=== PATIENT | female | born 1960 | race Caucasian/White ===

== ENCOUNTER 2019-09-07 01:27 | Emergency (ER) | payer OTHER ==
--- NOTE | 2019-09-07 01:49 | PDOC ---
History of Present Illness - General Stated Complaint: PAIN Time Seen by Provider: 09/07/19 01:48 History Source: Patient Exam Limitations: No Limitations - History of Present Illness Initial Comments: 59 year old female with PMH HTN, Factor 5 Leiden on Xarelto, chronic lower extremity swelling presented to ED for dental fracture and pain since last night. Pt reported she was at the Dentist yesterday for planned extraction of left upper tooth and planned root canal of left upper tooth. She reported that last night while brushing her teeth her left middle upper tooth broke and started to hurt her, prompting her to come to the ED. She reported she was treated for a left ear infection x2 weeks ago, was initially on Augmentin which gave her diarrhea/nausea/vomiting, then switched to Bactrim. She reported she did not take the bactrim today as it also have her diarrhea. ROS General: denied fever, chills, generalized weakness. HEENT: denied sore throat, rhinorrhea, ear pain. Cardiovascular: denied chest pain, palpitations, syncope, diaphoresis. Respiratory: denied shortness of breath, cough, sputum production, hemoptysis. Gastrointestinal: denied abdominal pain, nausea, vomiting, diarrhea, constipation, blood in stool. Genitourinary: denied dysuria, increased urinary frequency, hematuria, urinary incontinence, flank pain. Back: denied back pain. Musculoskeletal: denied joint pain, muscle pain, joint swelling. Neurological: denied headache, dizziness, numbness, tingling, weakness. Integumentary: denied rash, laceration, abrasion. Hematologic/Lymphatic: denied bruising or bleeding. PE Constitutional: Well-nourished, Well-developed, appearing stated age. HEENT: head is normocephalic, atraumatic. EOMI. PERRLA. no posterior pharyngeal erythema.no tonsillar swelling or exudates bilaterally. uvula midline. no peritonsillar swelling, tenderness or abscess. no jaw tenderness or misalignment. bilateral TM with light reflex, no erythema, no bulging. bilateral external auditory canals without erythema, without swelling. Neck: supple. Full ROM. Cardiovascular: regular heart rhythm. no murmurs. no pericardial friction rub. Respiratory: clear to auscultation bilaterally. no crackles, rhonchi or wheezing. no stridor. Gastrointestinal: soft, nontender. normal bowel sounds. no rebound, guarding, masses. Extremities: peripheral pulses intact. no lower extremity edema. Neurological: CN 2-12 grossly intact. moves all four extremities. Psych: awake, alert, oriented x3. follows commands. answers questions appropriately. Mouth: diffuse dental caries. poor dentition. number 9 fractured without pulp involvement. Past History - Past Medical History Allergies/Adverse Reactions: Allergies Allergy/AdvReac Type Severity Reaction Status Date / Time azithromycin Allergy Severe Hives Verified 09/07/19 01:30 [From Zithromax Z-Maxim] amitriptyline AdvReac Severe diarrhea Verified 09/07/19 01:30 aspirin AdvReac Severe gi problems Verified 09/07/19 01:30 celecoxib [From Celebrex] AdvReac Severe gi problems Verified 09/07/19 01:30 string beans AdvReac Severe diarrhea Uncoded 09/07/19 01:30 Home Medications: Ambulatory Orders Calcium Carb/Vitamin D3/Vit K1 [Calcium + D Soft Chewable Tab] 1 each PO DAILY 07/29/14 Cetirizine HCl [Zyrtec -] 10 mg PO DAILY 07/29/14 Cholecalciferol (Vitamin D3) [Vitamin D3] 600 unit PO BID 07/29/14 Citalopram Hydrobromide [Celexa -] 40 mg PO HS 07/29/14 Esomeprazole Mag Trihydrate [Nexium] 40 mg PO BID 07/29/14 Fluticasone/Salmeterol [Advair Hfa 230-21 Mcg Inhaler] 2 inh PO BID 07/29/14 Folic Acid - 1 mg PO DAILY 07/29/14 Gabapentin [Neurontin] 1,600 mg PO HS 07/29/14 Gabapentin [Neurontin] 300 mg PO TID PRN 07/29/14 Montelukast Na [Singulair -] 10 mg PO HS 07/29/14 Multivitamins [Multivit ([facility] Formulary)] 1 tab PO DAILY 07/29/14 Simvastatin [Zocor -] 40 mg PO HS 07/29/14 Ubidecarenone/Vit E Acet [Co Q-10 100 mg Softgel] 1 each PO DAILY 07/29/14 Zolpidem Tartrate 10 mg PO HS PRN 07/29/14 Meclizine HCl [Antivert -] 25 mg PO TID PRN 10/14/16 Rivaroxaban [Xarelto -] 20 mg PO DAILY 07/01/16 Oxycodone HCl/Acetaminophen [Percocet 5/325 -] 1 tab PO Q6H #12 tablet MDD 4 - Psycho Social/Smoking Cessation Hx Smoking History: Never smoked Have you smoked in the past 12 months: No Hx Alcohol Use: No Drug/Substance Use Hx: No Substance Use Type: None Hx Substance Use Treatment: No Medical Decision Making - Medical Decision Making 59 year old female with above PMH presented to ED for dental fracture since last night. Initial Vital Signs Temp Pulse Resp BP Pulse Ox 97.8 F 68 18 141/62 99 09/07/19 02:00 09/07/19 02:00 09/07/19 02:00 09/07/19 02:00 09/07/19 02:00 Afebrile. No tachycardia. No tachypnea. Mild hypertension. No hypoxia on room air. Labs ordered: none Imaging ordered: none Medications ordered: Percocet 2 pills once Allergies Allergy/AdvReac Type Severity Reaction Status Date / Time azithromycin Allergy Severe Hives Verified 09/07/19 01:30 [From Zithromax Z-Maxim] amitriptyline AdvReac Severe diarrhea Verified 09/07/19 01:30 aspirin AdvReac Severe gi problems Verified 09/07/19 01:30 celecoxib [From Celebrex] AdvReac Severe gi problems Verified 09/07/19 01:30 string beans AdvReac Severe diarrhea Uncoded 09/07/19 01:30 09/07/19 04:52 Vital Signs Temperature 97.8 F 09/07/19 02:00 Pulse Rate 66 09/07/19 04:29 Respiratory Rate 16 09/07/19 04:29 Blood Pressure 121/58 L 09/07/19 04:29 O2 Sat by Pulse Oximetry (%) 99 09/07/19 04:29 No pulp involvement. Pt stable for discharge and F/U with Dentist Monday. Discharge - Discharge Information Problems reviewed: Yes Clinical Impression/Diagnosis: Tooth fracture Condition: Stable Disposition: HOME - Admission No - Additional Discharge Information Prescriptions: Oxycodone HCl/Acetaminophen [Percocet 5/325 -] 1 tab PO Q6H #12 tablet MDD 4 - Follow up/Referral Referrals: Julia Cerda [Primary Care Provider] - - Patient Discharge Instructions Patient Printed Discharge Instructions: DI for Dental Pain Additional Instructions: Follow up with your Dentist on Monday. Your care is not complete until you follow up. Return to the Emergency Department for increasing pain, fever, vomiting, increasing swelling, difficulty breathing, chest pain, shortness of breath, or any other new, worsening or concerning symptoms. Take Tylenol over the counter for your pain. Take as advised on label. - Post Discharge Activity
--- NOTE | 2019-09-07 02:05 | PDOC ---
Attending Attestation - Resident Resident Name: Angela Song - ED Attending Attestation I have performed the following: I have examined & evaluated the patient, The case was reviewed & discussed with the resident, I agree w/resident's findings & plan - HPI HPI: 09/07/19 02:46 PT CHIPPED HER LEFT OF CENTER MEAXILLARY TOOTH TODAY. THIS OCCURRED AFTER COMING FROM THE DENTIST, WHERE THEY ARE DOING A ROOT CANAL ON ONE OF HER MOLARS. SHE IS ON ABX (BACTRIM) AND GIVEN TYLENOL FOR THE PAIN. SHE STATES THAT SHE NEEDS PAIN RELIEF. WE WILL TREAT WITH PERCOCET IN THE ER AND TOMORROW SHE WILL BE ASKED TO FOLLOW WITH HER DENTIST. - Physicial Exam PE: 09/07/19 03:30 Afebrile in mild distress pt appears well no gingival swelling 09/07/19 03:42 Chip in tooth #8 upper left of center tooth. hole drilled by dentist in tooth #3 Tooth #2 also with caries - Medical Decision Making 09/07/19 22:36 Pt given pain meds and she is discharged to follow with her dentist.
[2019-09-07 02:34] VITALS: BMI 42.5
[2019-09-07 10:41] VITALS: BP 144/80; PULSE 65; TEMP 98.2
== END 2019-09-07 10:41 | disposition home or self-care (01) ==
LOC: JER 01:27
DX: S02.5XXA Fracture of tooth (traumatic), initial encounter for closed fracture (principal); K02.9 Dental caries, unspecified; X58.XXXA Exposure to other specified factors, initial encounter; Y93.89 Activity, other specified; Y92.038 Other place in apartment as the place of occurrence of the external cause; Y99.8 Other external cause status; Z88.1 Allergy status to other antibiotic agents; Z88.6 Allergy status to analgesic agent; Z88.8 Allergy status to other drugs, medicaments and biological substances; Z91.018 Allergy to other foods
CPT/HCPCS: 99282-25

== ENCOUNTER 2020-04-27 20:02 | Observation (INO) | payer OTHER ==
--- NOTE | 2020-04-27 20:35 | PDOC ---
Attending Attestation - Resident Resident Name: Yasmany Griffith - ED Attending Attestation I have performed the following: I have examined & evaluated the patient, The case was reviewed & discussed with the resident, I agree w/resident's findings & plan - HPI HPI: 04/27/20 22:57 see resident hpi - Physicial Exam PE: 04/27/20 22:57 see resident exam - Medical Decision Making 04/27/20 22:57 60-year-old female with chest pressure EKG shows a right bundle branch block with no old for comparison Chest x-ray shows no acute pulmonary disease Pressures are equal in bilateral upper extremities There is no radiation of pain to the back or neck to suggest dissection Patient is currently anticoagulated due to clotting disorder, PE unlikely We will admit to medical service for further evaluation 04/27/20 22:59 Discharge - Discharge Information Problems reviewed: Yes Clinical Impression/Diagnosis: Chest pain Condition: Fair - Follow up/Referral - Patient Discharge Instructions - Post Discharge Activity
[2020-04-27 20:36] VITALS: BMI 43.5
--- NOTE | 2020-04-27 20:48 | PDOC ---
History of Present Illness - General Chief Complaint: Chest Pain Stated Complaint: CHEST PAIN - History of Present Illness Initial Comments: 04/27/20 20:40 60 F with hx of leiden V on xalreto, DVT, PE (2016), chronic extremiites swelling, HTN, HLD, GERD, hiatal hernia BIBA from home for chest pain. Chest pain started this morning , about 8 hours ago. Pain started in the midsternum, radiate around the front of the chest, 8/10, worse with movement, get better with rest. No vomiting, no diaphoresis, no changes of vision. Does endorse headache, nausea. Denies Fever, chill, recent sick contact. Compliant with all the home med. Patient got new HTN med add to her list this morning after seeing her primary care doctor. PMH: stated above PSH: none Med: home meds. SS: denies smoke, alcohol, drug ALlergy: zpack, amitripline, aspirin, celecocib. PCP: jesus SE[facility] GENERAL/CONSTITUTIONAL: No fever or chills. No weakness. HEAD, EYES, EARS, NOSE AND THROAT: No change in vision. No ear pain or discharge. No sore throat. CARDIOVASCULAR: +chest pain ,no shortness of breath RESPIRATORY: No cough, wheezing, or hemoptysis. GASTROINTESTINAL: + nausea, no vomiting, diarrhea or constipation. GENITOURINARY: No dysuria, + increased frequency, or change in urination. MUSCULOSKELETAL: No joint pain, + legs muscle swelling . No neck ,+ back pain (chronic) SKIN: No rash NEUROLOGIC: + headache, no vertigo, loss of consciousness, or change in strength/sensation. ENDOCRINE: No increased thirst. No abnormal weight change HEMATOLOGIC/LYMPHATIC: No anemia, easy bleeding, or history of blood clots. ALLERGIC/IMMUNOLOGIC: No hives or skin allergy. PE: BP: 190s/70s GENERAL: Awake, alert, and fully oriented, in no acute distress. +Obese. HEAD: No signs of trauma, normocephalic, atraumatic EYES: PERRLA, EOMI, sclera anicteric, conjunctiva clear ENT: Auricles normal inspection, hearing grossly normal, nares patent, oropharynx clear without exudates. Moist mucosa NECK: Normal ROM, supple, no lymphadenopathy, JVD, or masses LUNGS: No distress, speaks full sentences, clear to auscultation bilaterally HEART: Regular rate and rhythm, normal S1 and S2, no murmurs, rubs or gallops, peripheral pulses normal and equal bilaterally. ABDOMEN: Soft, nontender, normoactive bowel sounds. No guarding, no rebound. No masses EXTREMITIES : Normal range of motion. No clubbing or cyanosis. No pitting edema. Chronic swelling, no redness. NEUROLOGICAL: Cranial nerves II through XII grossly intact. Normal speech, normal gait, no focal sensorimotor deficits SKIN: Warm, Dry, normal turgor, no rashes or lesions noted Past History - Medical History Allergies/Adverse Reactions: Allergies Allergy/AdvReac Type Severity Reaction Status Date / Time azithromycin Allergy Severe Hives Verified 04/27/20 20:24 [From Zithromax Z-Maxim] amitriptyline AdvReac Severe diarrhea Verified 04/27/20 20:24 aspirin AdvReac Severe gi problems Verified 04/27/20 20:24 celecoxib [From Celebrex] AdvReac Severe gi problems Verified 04/27/20 20:24 string beans AdvReac Severe diarrhea Uncoded 04/27/20 20:24 Home Medications: Ambulatory Orders Calcium Carb/Vitamin D3/Vit K1 [Calcium + D Soft Chewable Tab] 1 each PO DAILY 07/29/14 Cetirizine HCl [Zyrtec -] 10 mg PO DAILY 07/29/14 Cholecalciferol (Vitamin D3) [Vitamin D3] 600 unit PO BID 07/29/14 Citalopram Hydrobromide [Celexa -] 40 mg PO HS 07/29/14 Esomeprazole Mag Trihydrate [Nexium] 40 mg PO BID 07/29/14 Fluticasone/Salmeterol [Advair Hfa 230-21 Mcg Inhaler] 2 inh PO BID 07/29/14 Folic Acid - 1 mg PO DAILY 07/29/14 Gabapentin [Neurontin] 1,600 mg PO HS 07/29/14 Gabapentin [Neurontin] 300 mg PO TID PRN 07/29/14 Montelukast Na [Singulair -] 10 mg PO HS 07/29/14 Multivitamins [Multivit ([facility] Formul[facility])] 1 tab PO DAILY 07/29/14 Simvastatin [Zocor -] 40 mg PO HS 07/29/14 Ubidecarenone/Vit E Acet [Co Q-10 100 mg Softgel] 1 each PO DAILY 07/29/14 Zolpidem Tartrate 10 mg PO HS PRN 07/29/14 Meclizine HCl [Antivert -] 25 mg PO TID PRN 07/01/16 Rivaroxaban [Xarelto -] 20 mg PO DAILY 07/01/16 Oxycodone HCl/Acetaminophen [Percocet 5/325 -] 1 tab PO Q6H #12 tablet MDD 4 09/07/19 Anemia: No Asthma: Yes (LAST USED ALBUTEROL 1 1/2 MOS AGO,HAD BRONCHITIS,FINISHED LEVAQUIN 07/25/14) Cancer: No Cardiac Disorders: No (MILD MURMUR) CVA: No COPD: Yes CHF: No Dementia: No Diabetes: No GI Disorders: Yes (GERD,COLON POLYPS) Disorders: No HTN: Yes Hypercholesterolemia: Yes Liver Disease: No Seizures: Yes (LAST SEIZURE OVER 35 YEARS AGO) Thyroid Disease: No - Surgical History Abdominal Surgery: No Appendectomy: No Cardiac Surgery: No Cholecystectomy: Yes Lung Surgery: No Neurologic Surgery: No Orthopedic Surgery: Yes (CARPAL TUNNEL BILATERAL,LEFT SHOULDER ARTHROSCOPY) - Reproductive History Is Patient Now?: No - Psycho-Social/Smoking History Smoking History: Never smoked Have you smoked in the past 12 months: No Information on smoking cessation initiated: No - Substance Abuse Hx (Audit-C & DAST Scrn) How often the patient has a drink containing alcohol: Never Score: In Men: 4 or > Positive; In Women: 3 or > Positive: 0 Screen Result (Pos requires Nsg. Audit-10AR): Negative In the last yr the pt used illegal drug/Rx for NonMed reason: No Score: Yes response is considered Positive: 0 Screen Result (Positive result requires Nsg. DAST-10): Negative *Physical Exam - Vital Signs Last Vital Signs Temp Pulse Resp BP Pulse Ox 98.8 F 72 18 194/78 H 97 04/27/20 20:10 04/27/20 20:10 04/27/20 20:10 04/27/20 20:10 04/27/20 20:10 ED Treatment Course - LABORATORY CBC & Chemistry Diagram: 04/27/20 21:27 04/27/20 21:27 Medical Decision Making - Medical Decision Making 04/27/20 21:06 EKG: vent rate 67, normal sinus rhythm, RBBB. No previous EKG to compare to. 04/27/20 21:07 60 F with HTN, Factor V leiden, HLD, previous DVT, PE (2016) came here for chest pain, concerning for ACS, PE, dissection. -lab: CBC, CMP, UA to look for End organ damage, cardiac profile, -repeat BP both arms -chest Xray normal, no obvious infiltrate. No previous Xray to compare to. 04/27/20 21:29 Repeated BP both arms: 160/80s. 04/27/20 23:36 Heart score: 3, for age and risk factors. Lab came back with elevated BNP, trop is negative. 04/27/20 23:37 Admit for tele observation, under Dr. keen 04/27/20 23:42 Give tylenol for chest pain, reassessed pain. Patient admitted feeling better. Pain is coming down now. Discharge - Discharge Information Problems reviewed: Yes Clinical Impression/Diagnosis: Chest pain Qualifiers: Chest pain type: unspecified Qualified Code(s): R07.9 - Chest pain, unspecified Condition: Fair - Admission Yes - Follow up/Referral - Patient Discharge Instructions - Post Discharge Activity
[2020-04-27 21:49] LABS: EOS % 2.3 % (0-4.5); HEMATOCRIT 42.4 % (32.4-45.2); LYMPH % 22.5 % (8-40); MCH 26.9 pg (25.7-33.7); MEAN CELL VOLUME 81.4 fl (80-96); MEAN PLT VOLUME 10.8 fl (7.5-11.1); MONO % 10.2 % (3.8-10.2); PLATELET COUNT 139 K/MM3 (134-434); RBC 5.21 M/mm3 (3.60-5.2); RDW 13.8 % (11.6-15.6)
[2020-04-27 22:23] LABS: ALBUMIN 3.7 g/dl (3.4-5.0); ALK PHOS 65 U/L (45-117); ANION GAP 9 MMOL/L (8-16); BILIRUBIN,TOTAL 1.3 mg/dL (0.2-1); BLOOD UREA NITROGEN 12.5 mg/dL (7-18); CALCIUM 9.2 mg/dL (8.5-10.1); CHLORIDE 104 mmol/L (98-107); CO2 28 mmol/L (21-32); CREATININE 1.1 mg/dL (0.55-1.3); GLUCOSE,RANDOM 113 mg/dL (74-106); N-TERMINAL BNP 429.9 pg/ml (5-125); POTASSIUM 3.7 mmol/L (3.5-5.1); SGOT/AST 27 U/L (15-37); SGPT/ALT 37 U/L (13-61); SODIUM 142 mmol/L (136-145)
[2020-04-27 23:27] LABS: INR 0.97 (0.83-1.09); PROTHROMBIN TIME (PATIENT) 11.4 SEC (9.7-13.0)
[2020-04-27] MEDS ORDERED: ACETAMINOPHEN 1000 MG/100 ML VIAL (NON FORMULARY) IVPB ONE (23:29)
[2020-04-27 23:30] LABS: ACTIVATED PTT 29.5 SECONDS (25.2-36.5)
[2020-04-28] MEDS ORDERED: PANTOPRAZOLE 40 MG TABLET PO ONE (00:22)
[2020-04-28] MEDS ORDERED: GABAPENTIN 300 MG CAPSULE PO PRN (00:30)
[2020-04-28] MEDS ORDERED: FUROSEMIDE 40 MG TABLET (FP) PO ONE (00:34)
[2020-04-28] MEDS ORDERED: MECLIZINE HCL 25 MG TABLET (FP) PO PRN (00:50)
--- NOTE | 2020-04-28 01:42 | PN ---
Teaching Attending Note Name of Resident: Jennie Gaming ATTENDING PHYSICIAN STATEMENT I saw and evaluated the patient. I reviewed the resident's note and discussed the case with the resident. I agree with the resident's findings and plan as documented. SUBJECTIVE: 60 F with hx of leiden V on xalreto, DVT, PE (2015), chronic extremiites swel ling, HTN, HLD, GERD, hiatal hernia presented with chest pain. According to patient her chest started yesterday morning, on and off left sided. 8/10. worse withy movement. NO shortness of breath, palpitations, diaphoresis patient denies any chest pain at this time OBJECTIVE: Last Vital Signs Temp Pulse Resp BP Pulse Ox 99.0 F 68 19 155/67 98 04/28/20 00:46 04/28/20 00:46 04/28/20 00:46 04/28/20 00:46 04/28/20 00:46 GENERAL: obese, not ketan cute distress HEAD: No signs of trauma, normocephalic, atraumatic EYES: PERRLA, EOMI, sclera anicteric, conjunctiva clear ENT: Auricles normal inspection, hearing grossly normal, nares patent, oropharynx clear without exudates. Moist mucosa NECK: Normal ROM, supple, no lymphadenopathy, JVD, or masses LUNGS: No distress, speaks full sentences, clear to auscultation bilaterally HEART: Regular rate and rhythm, normal S1 and S2, no murmurs, rubs or gallops, peripheral pulses normal and equal bilaterally. ABDOMEN: Soft, nontender, normoactive bowel sounds. No guarding, no rebound. No masses EXTREMITIES : Normal range of motion. No clubbing or cyanosis. No pitting edema. Chronic swelling, no redness. b/l calf tenderness NEUROLOGICAL: Cranial nerves II through XII grossly intact. Normal speech, normal gait, no focal sensorimotor deficits SKIN: Warm, Dry, normal turgor, no rashes or lesions note ASSESSMENT AND PLAN: chest pain r/o ACS heart score 3 factor leiden V on xalreto, DVT, PE (2016), chronic extremiites swelling, HTN, HLD, GERD, hiatal hernia cervical and lumbar radicopathy with neuropathy Admit to tele serial cardiac enzymes, EKG b/l DVT studies ECHO HTN- uncontrolled - resume losartan resume all home meds including xarelto Hba1c, lipid panel check UA as she gives history ofm polyuria resume home meds for above mentioned co morbidities
[2020-04-28] MEDS ORDERED: PANTOPRAZOLE 20 MG TABLET PO ONE ×2 (01:48→02:38)
[2020-04-28] MEDS ORDERED: ACETAMINOPHEN INJECTION 100 ML IVPB ONE (01:48)
[2020-04-28 02:32] LABS: PH,URINE 6.5 (5.0-8.0); URINE APPEARANCE CLEAR; URINE BILIRUBIN NEGATIVE (NEGATIVE); URINE COLOR YELLOW; URINE GLUCOSE (UA) NEGATIVE (NEGATIVE); URINE KETONE NEGATIVE (NEGATIVE); URINE LEUK ESTERASE NEGATIVE (NEGATIVE); URINE NITRITE NEGATIVE (NEGATIVE); URINE PROTEIN NEGATIVE (NEGATIVE)
--- NOTE | 2020-04-28 06:18 | HP ---
CHIEF COMPLAINT: chest pain PCP: Dr. Grant HISTORY OF PRESENT ILLNESS: Pt is a 60 yo F with PMH of factor V leiden on xalreto, DVT, PE (2016), chronic lower extremity swelling, HTN, HLD, GERD, asthma, and hiatal hernia presenting with non-radiating generalized chest pain (pain scale 9/1) since this morning. She reports that the pain is burning, pressure-like, and feels like chest- tightness as well. Pt reports that the pain is aggravated by movement and improves with rest. Pt reports that her BPs are usually 120s/60s at home but that she noticed them elavated today after onset of chest pain. Associated nausea and headache. Also reports increased urinary frequency, but not dysuria or hematuria. Denies vomiting, diaphoresis, fevers, chills, changes in vision, constipation, and diarrhea. Pt reports pain feels similar to GERD related pain she has had in past but much worse - "never this bad before." ER course was notable for: (1) vent rate 67, normal sinus rhythm, RBBB. No previous EKG to compare to. (2) Trops neg (3) Tylenol given Recent Travel: none Sick contacts: none PAST MEDICAL HISTORY: as per HPI PAST SURGICAL HISTORY: as per HPI Social History: Lives in apartment alone. Smoking: Denies Alcohol: Denies Drugs: Denies Allergies azithromycin [From Zithromax Z-Maxim] Allergy (Severe, Verified 04/27/20 20:24) Hives amitriptyline Adverse Reaction (Severe, Verified 04/27/20 20:24) diarrhea aspirin Adverse Reaction (Severe, Verified 04/27/20 20:24) gi problems celecoxib [From Celebrex] Adverse Reaction (Severe, Verified 04/27/20 20:24) gi problems string beans Adverse Reaction (Severe, Uncoded 04/27/20 20:24) diarrhea HOME MEDICATIONS: Home Medications Medication Instructions Recorded Calcium Carb/Vitamin D3/Vit K1 1 each PO DAILY 07/29/14 [Calcium + D Soft Chewable Tab] Cetirizine HCl [Zyrtec -] 10 mg PO DAILY 07/29/14 Cholecalciferol (Vitamin D3) 600 unit PO BID 07/29/14 [Vitamin D3] Citalopram Hydrobromide [Celexa -] 40 mg PO HS 07/29/14 Esomeprazole Mag Trihydrate 40 mg PO BID 07/29/14 [Nexium] Fluticasone/Salmeterol [Advair Hfa 2 inh PO BID 07/29/14 230-21 Mcg Inhaler] Folic Acid - 1 mg PO DAILY 07/29/14 Gabapentin [Neurontin] 1,200 mg PO HS 07/29/14 Gabapentin [Neurontin] 300 mg PO TID PRN 07/29/14 Montelukast Na [Singulair -] 10 mg PO HS 07/29/14 Multivitamins [Multivit ([facility] 1 tab PO DAILY 07/29/14 Formulary)] Simvastatin [Zocor -] 40 mg PO HS 07/29/14 Meclizine HCl [Antivert -] 12.5 mg PO TID PRN 07/01/16 Rivaroxaban [Xarelto -] 20 mg PO DAILY 07/01/16 Ezetimibe [Zetia -] 10 mg PO DAILY 04/28/20 Furosemide [Lasix -] 20 mg PO DAILY 04/28/20 Losartan Potassium 100 mg PO DAILY 04/28/20 REVIEW OF SYSTEMS as per HPI. PHYSICAL EXAMINATION Vital Signs - 24 hr 04/27/20 04/27/20 04/28/20 20:10 21:51 00:46 Temperature 98.8 F 99.0 F Pulse Rate 72 Pulse Rate [ 68 Right Radial] Respiratory 18 19 Rate Blood Pressure 194/78 H Blood Pressure 165/83 155/67 [Right Arm] O2 Sat by Pulse 97 98 Oximetry (%) GENERAL: Awake, alert, and fully oriented, in no acute distress. Pt morbidly obese. HEAD: Normal with no signs of trauma. EYES: Pupils equal, round and reactive to light, extraocular movements intact, sclera white, conjunctiva clear. EARS, NOSE, THROAT: oropharynx clear without exudates. Moist mucous membranes. NECK: Normal range of motion, supple without LAD LUNGS: Breath sounds equal, clear to auscultation bilaterally. No wheezes, and no crackles. No accessory muscle use. HEART: Regular rate and rhythm, normal S1 and S2 without murmur, rub or gallop. ABDOMEN: Soft, nontender, not distended, normoactive bowel sounds. MUSCULOSKELETAL: moving all extremities equally and spontaneously UPPER EXTREMITIES: 2+ pulses, warm, well-perfused. LOWER EXTREMITIES: 2+ pulses, warm, well-perfused. Mild calf tenderness. Non- pitting peripheral edema - chronic. NEUROLOGICAL: Cranial nerves II-XII intact. Normal speech. Normal gait. PSYCHIATRIC: Cooperative. Good eye contact. Appropriate mood and affect. SKIN: Warm, dry, normal turgor, no rashes or lesions noted. Laboratory Results - last 24 hr 04/27/20 04/27/20 04/27/20 21:27 21:27 23:15 WBC 6.0 RBC 5.21 H Hgb 14.0 Hct 42.4 MCV 81.4 MCH 26.9 MCHC 33.0 RDW 13.8 Plt Count 139 MPV 10.8 Absolute Neuts (auto) 3.9 Neutrophils % 64.0 Lymphocytes % 22.5 Monocytes % 10.2 Eosinophils % 2.3 Basophils % 1.0 Nucleated RBC % 0 PT with INR 11.40 INR 0.97 PTT (Actin FS) 29.5 Sodium 142 Potassium 3.7 Chloride 104 Carbon Dioxide 28 Anion Gap 9 BUN 12.5 Creatinine 1.1 Est GFR (CKD-EPI)AfAm 63.20 Est GFR (CKD-EPI)NonAf 54.53 Random Glucose 113 H Calcium 9.2 Total Bilirubin 1.3 H AST 27 ALT 37 Alkaline Phosphatase 65 Creatine Kinase 108 Troponin I < 0.02 B-Natriuretic Peptide 429.9 H Total Protein 7.0 Albumin 3.7 Lipase Urine Color Urine Appearance Urine pH Ur Specific Amery Urine Protein Urine Glucose (UA) Urine Ketones Urine Blood Urine Nitrite Urine Bilirubin Urine Urobilinogen Ur Leukocyte Esterase 04/28/20 04/28/20 04/28/20 02:15 03:33 03:33 WBC RBC Hgb Hct MCV MCH MCHC RDW Plt Count MPV Absolute Neuts (auto) Neutrophils % Lymphocytes % Monocytes % Eosinophils % Basophils % Nucleated RBC % PT with INR INR PTT (Actin FS) Sodium Potassium Chloride Carbon Dioxide Anion Gap BUN Creatinine Est GFR (CKD-EPI)AfAm Est GFR (CKD-EPI)NonAf Random Glucose Calcium Total Bilirubin AST ALT Alkaline Phosphatase Creatine Kinase Troponin I < 0.02 B-Natriuretic Peptide Total Protein Albumin Lipase 89 Urine Color Yellow Urine Appearance Clear Urine pH 6.5 Ur Specific Amery 1.009 L Urine Protein Negative Urine Glucose (UA) Negative Urine Ketones Negative Urine Blood Negative Urine Nitrite Negative Urine Bilirubin Negative Urine Urobilinogen 1.0 Ur Leukocyte Esterase Negative ASSESSMENT/PLAN: Pt is a 60 yo F with PMH of factor V leiden on xalreto, DVT, PE (2016), chronic lower extremity swelling, HTN, HLD, GERD, asthma and hiatal hernia being admitted for observation of chest pain, r/o ACS. #Chest Pain r/o ACS chest pain improved to 5/10 EKG: vent rate 67, normal sinus rhythm, RBBB. No previous EKG to compare to. trop neg Heart score 3 - follow serial trops - follow for any EKG changes - ECHO - can't give ASA, plavix as pt reports acute bleeding on these medications in the past #Hx of Factor V Leiden (on Xarelto) DVT & PE in 2016 - continue home xarelto 20 mg PO - b/l duplex of legs #Recent polyuria - f/u UA, glucose - check HbA1C #Hx of cervical and lumbar radicopathy with neuropathy - continue home gabapentin 1200 mg po hs - continue home gabapentin 300 mg po tid prn #Hx of HTN - continue home losartan 100 mg #Hx of HLD - f/u lipid panel - continue home zetia 10 mg PO daily #Hx of GERD - continue home protonix 40 daily #Hx of asthma - continue home monteleukast, symbicort #Hx of Chronic Leg Swelling - continue home lasix 20 po daily #QTC prolongation - holding home cetirizine and celexa; avoid all QTc prolonging agents #FEN F - PO for now E - monitor lytes, replete prn N - low sodium, low fat diet #Dispo - Admit to telemetry for observation Visit type - Emergency Visit Emergency Visit: Yes ED Registration Date: 04/27/20 Care time: The patient presented to the Emergency Department on the above date and was hospitalized for further evaluation of their emergent condition. - New Patient This patient is new to me today: Yes Date on this admission: 04/28/20 - Critical Care Critical Care patient: No ATTENDING PHYSICIAN STATEMENT I saw and evaluated the patient. I reviewed the resident's note and discussed the case with the resident. I agree with the resident's findings and plan as documented. SUBJECTIVE: OBJECTIVE: ASSESSMENT AND PLAN:
[2020-04-28 07:23] LABS: HEMATOCRIT 39.8 % (32.4-45.2); HEMOGLOBIN 13.3 GM/dL (10.7-15.3); MCH 26.8 pg (25.7-33.7); MCHC 33.4 g/dl (32.0-36.0); MEAN CELL VOLUME 80.1 fl (80-96); MEAN PLT VOLUME 10.4 fl (7.5-11.1); PLATELET COUNT 131 K/MM3 (134-434); RBC 4.96 M/mm3 (3.60-5.2); RDW 13.9 % (11.6-15.6); WHITE BLOOD COUNT 5.3 K/mm3 (4.0-10.0)
[2020-04-28 07:57] LABS: ALBUMIN 3.3 g/dl (3.4-5.0); ALK PHOS 61 U/L (45-117); ANION GAP 11 MMOL/L (8-16); BILIRUBIN,TOTAL 1.4 mg/dL (0.2-1); BLOOD UREA NITROGEN 13.1 mg/dL (7-18); CALCIUM 8.9 mg/dL (8.5-10.1); CHLORIDE 105 mmol/L (98-107); CO2 27 mmol/L (21-32); CREATININE 1.1 mg/dL (0.55-1.3); GLUCOSE,RANDOM 120 mg/dL (74-106); MAGNESIUM 2.1 mg/dL (1.8-2.4); PHOSPHOROUS 4.5 mg/dL (2.5-4.9); POTASSIUM 3.5 mmol/L (3.5-5.1); SGOT/AST 24 U/L (15-37); SGPT/ALT 34 U/L (13-61); SODIUM 143 mmol/L (136-145); TOT PROT 6.5 g/dl (6.4-8.2)
[2020-04-28] MEDS ORDERED: FUROSEMIDE 20 MG TABLET (FP) PO SCH (10:00)
[2020-04-28] MEDS ORDERED: PANTOPRAZOLE 40 MG TABLET PO SCH (10:00)
[2020-04-28] MEDS ORDERED: EZETIMIBE 10 MG TABLET (FP) PO SCH (10:00)
[2020-04-28] MEDS ORDERED: PATIENT'S OWN MEDICATION (NON-FORMULARY) (Fluticasone/Salmeterol [Advair Hfa 230-21 Mcg In PO SCH (10:00)
[2020-04-28] MEDS ORDERED: FOLIC ACID 1 MG TABLET (FP) PO SCH (10:00)
[2020-04-28] MEDS ORDERED: CHOLECALCIFEROL PO SCH (10:00)
[2020-04-28] MEDS ORDERED: PATIENT'S OWN MEDICATION (NON-FORMULARY) (Losartan Potassium [Losartan Potassium] 100 MG) PO SCH (10:00)
[2020-04-28] MEDS ORDERED: LOSARTAN POTASSIUM 50 MG TABLET (FP) PO SCH (10:00)
[2020-04-28] MEDS ORDERED: CALCIUM 500MG/VIT-D 200 UNITS COMBO TABLET (FP) PO SCH (10:00)
[2020-04-28] MEDS ORDERED: BUDESONIDE/FORMETEROL FUMARATE 160/4.5 mcg INHALER IH SCH (10:00)
[2020-04-28] MEDS ORDERED: PATIENT'S OWN MEDICATION (NON-FORMULARY) (Calcium Carb/Vitamin D3/Vit K1 [Calcium + D Soft PO SCH (10:00)
[2020-04-28] MEDS ORDERED: MULTIVITAMINS (DAILY MVI) TABLET (FP) PO SCH (10:00)
[2020-04-28] MEDS ORDERED: PATIENT'S OWN MEDICATION (NON-FORMULARY) (Esomeprazole Mag Trihydrate [Nexium] 40 MG) PO SCH (10:00)
[2020-04-28] MEDS ORDERED: CHOLECALCIFEROL (VIT D SOLUTION) 400 UNIT/1 ML DROPS PO SCH (10:00)
[2020-04-28] MEDS ORDERED: PT OWN MED DRAWER 7, Y5N ONE (10:04)
[2020-04-28 10:18] LABS: CHOLESTEROL 224 mg/dL (50-200); HDL CHOLESTEROL 36 mg/dL (40-60); LDL CHOLESTEROL (ONLY SJRH) 150 mg/dL (5-100); TRIGLYCERIDES 224 mg/dL (0-150)
--- NOTE | 2020-04-28 10:32 | EKG ---
Test Reason : Blood Pressure : / mmHG Vent. Rate : 067 BPM Atrial Rate : 067 BPM P-R Int : 202 ms QRS Dur : 134 ms QT Int : 450 ms P-R-T Axes : 007 052 014 degrees QTc Int : 475 ms NORMAL SINUS RHYTHM RIGHT BUNDLE BRANCH BLOCK ABNORMAL ECG NO PREVIOUS ECGS AVAILABLE Confirmed by MD Enrique, Celestino ([id number]) on 04/28/2020 10:32:12 AM Referred By: Confirmed By:Celestino Nunez MD
[2020-04-28] MEDS ORDERED: LOSARTAN POTASSIUM 50 MG TABLET (FP) ONE (10:39)
[2020-04-28] MEDS ORDERED: PANTOPRAZOLE 40 MG TABLET ONE (10:39)
[2020-04-28] MEDS ORDERED: MULTIVITAMINS (DAILY MVI) TABLET (FP) ONE (10:39)
[2020-04-28] MEDS ORDERED: FOLIC ACID 1 MG TABLET (FP) ONE (10:40)
--- NOTE | 2020-04-28 11:16 | CON.CARD ---
Consult Consult Specialty:: cardiology Reason for Consultation:: SOB; chest discomfort; multiple CAD risks - History of Present Illness Chief Complaint: Pt A&Ox3; no chest pain presently History of Present Illness: Ms. Jenkins is a 60 yo white woman with PM hx of morbid obesity, leiden V deficiency, ?bronchial asthma (treated for the past 10 yrs), DVT, PE (2016)-->rivaroxaban, chronic bilateral LE swelling, bilateral knee "arthritis", DM (?not on medications), HTN, HLD, diastolic CHF, GERD, hiatal hernia BIBA from home for elevated blood pressure. She had seen her PMD in the morning; BP was high, and she was given an additional prescription for a 2nd med, but did not fill it. At home, when she took her BP, it was "very high, like 190/120", and she decided to come to the ER. She also had chest tightness when taking a deep breath started in the midsternum, radiate around the front of the chest, 8/10, worse with movement, get better with rest. No vomiting, no diaphoresis, no changes of vision. + headache and nausea. Denies Fever, chill, recent sick contact. PMH: stated above PSH: none Med: home meds. SS: denies smoking, alcohol, illicit drugs ALlergy: zpack, amitripline, aspirin, celecocib. PCP: jesus hoyt Steeple Jack: Ervin Boston - History Source History Provided By: Patient, Medical Record Limitations to Obtaining History: No Limitations - Past Medical History Cardio/Vascular: Yes: CHF, HTN, Hyperlipdemia Pulmonary: Yes: Asthma, Pulmonary Embolus Reproductive: Yes: Postmenopausal ...: No Heme/Onc: No: Anemia Musculoskeletal: Yes: Other (cervical spine disease: planning for surgery as outpt) - Alcohol/Substance Use Hx Alcohol Use: No - Smoking History Smoking history: Never smoked Have you smoked in the past 12 months: No Home Medications - Allergies Allergies/Adverse Reactions: Allergies Allergy/AdvReac Type Severity Reaction Status Date / Time azithromycin Allergy Severe Hives Verified 05/11/20 16:57 [From Zithromax Z-Maxim] piroxicam [From Feldene] Allergy Unknown Verified 05/11/20 17:08 amitriptyline AdvReac Severe diarrhea Verified 05/11/20 16:57 aspirin AdvReac Severe gi problems Verified 05/11/20 16:57 celecoxib [From Celebrex] AdvReac Severe gi problems Verified 05/11/20 16:57 alendronate sodium AdvReac Unknown Verified 05/11/20 17:11 [From Fosamax] [place] [employer] Derivatives AdvReac Unknown Verified 05/11/20 17:11 dextromethorphan AdvReac Unknown Verified 05/11/20 17:11 [From Actinel] fluconazole AdvReac Unknown Verified 05/11/20 17:11 guaifenesin [From Actinel] AdvReac Unknown Verified 05/11/20 17:11 ibandronate sodium AdvReac Unknown Verified 05/11/20 17:11 [From Boniva] pseudoephedrine AdvReac Unknown Verified 05/11/20 17:11 [From Actinel] sulfamethoxazole AdvReac Unknown Verified 05/11/20 17:11 [From Sulfamethoxazole-Trimethoprim] tomato AdvReac Unknown Verified 05/11/20 17:11 trimethoprim AdvReac Unknown Verified 05/11/20 17:11 [From Sulfamethoxazole-Trimethoprim] string beans AdvReac Severe diarrhea Uncoded 05/11/20 16:57 - Home Medications Home Medications: Ambulatory Orders Calcium Carb/Vitamin D3/Vit K1 [Calcium + D Soft Chewable Tab] 1 each PO DAILY 07/29/14 Cetirizine HCl [Zyrtec -] 10 mg PO DAILY 07/29/14 Cholecalciferol (Vitamin D3) [Vitamin D3] 600 unit PO BID 07/29/14 Citalopram Hydrobromide [Celexa -] 40 mg PO HS 07/29/14 Esomeprazole Mag Trihydrate [Nexium] 40 mg PO BID 07/29/14 Fluticasone/Salmeterol [Advair Hfa 230-21 Mcg Inhaler] 2 inh PO BID 07/29/14 Folic Acid - 1 mg PO DAILY 07/29/14 Gabapentin [Neurontin] 1,200 mg PO HS 07/29/14 Gabapentin [Neurontin] 300 mg PO TID PRN 07/29/14 Montelukast Na [Singulair -] 10 mg PO HS 07/29/14 Multivitamins [Multivit ([facility] Formulary)] 1 tab PO DAILY 07/29/14 Simvastatin [Zocor -] 40 mg PO HS 07/29/14 Meclizine HCl [Antivert -] 12.5 mg PO TID PRN 07/01/16 Rivaroxaban [Xarelto -] 20 mg PO DAILY 07/01/16 Atorvastatin Ca [Lipitor] 80 mg PO HS #30 tablet 04/28/20 Ezetimibe [Zetia -] 10 mg PO DAILY 04/28/20 Furosemide [Lasix -] 20 mg PO DAILY 04/28/20 Losartan Potassium 100 mg PO DAILY 04/28/20 Nitrofurantoin Macrocrystal [Nitrofurantoin] 100 mg PO 05/11/20 Oxybutynin Chloride [Oxybutynin Chloride ER] 10 mg PO DAILY 05/11/20 Potassium Chloride [Klor-Con M20] 20 meq PO DAILY 05/11/20 Review of Systems - Review of Systems Constitutional: reports: Weakness Eyes: reports: No Symptoms HENT: reports: No Symptoms Neck: reports: Decreased ROM, Other (ceri) Cardiovascular: reports: Chest Pain Respiratory: reports: Exercise Intolerance Gastrointestinal: reports: No Symptoms Genitourinary: reports: No Symptoms Breasts: reports: No Symptoms Reported Musculoskeletal: reports: Joint Pain (bilateral knees), Muscle Weakness Integumentary: reports: No Symptoms, Pallor Endocrine: reports: No Symptoms Hematology/Lymphatic: reports: No Symptoms Psychiatric: reports: Anxiety - Risk Factors Known Risk Factors: Yes: Age, Hypercholesterolemia, Hypertension, Physical Inactivity, Other Vital Signs: Vital Signs Temperature 98.9 F 04/28/20 06:41 Pulse Rate 60 04/28/20 06:41 Respiratory Rate 16 04/28/20 06:41 Blood Pressure 122/60 04/28/20 06:41 O2 Sat by Pulse Oximetry (%) 97 04/28/20 06:41 Constitutional: Yes: Anxious, Obese Eyes: Yes: WNL HENT: Yes: WNL Neck: Yes: WNL Respiratory: Yes: WNL Gastrointestinal: Yes: Soft. No: Tenderness Renal/: Yes: WNL Cardiovascular: Yes: Regular Rate and Rhythm JVD: No Carotid Bruit: No PMI: Non-Displaced Heart Sounds: Yes: S1, S2, S4 Murmur: Yes: Systolic Murmur, Grade 1 Musculoskeletal: Yes: Joint Stiffness Extremities: Yes: WNL Edema: No Peripheral Pulses WNL: Yes Integumentary: Yes: WNL Neurological: Yes: WNL ...Motor Strength: WNL Psychiatric: Yes: WNL - Other Data Labs, Other Data: CBC, BMP 04/28/20 05:30 04/28/20 05:30 INR, PTT INR 0.97 (0.83-1.09) 04/27/20 23:15 Troponin, BNP 04/27/20 04/28/20 04/28/20 21:27 03:33 05:30 Troponin I < 0.02 < 0.02 < 0.02 B-Natriuretic Peptide 429.9 H Troponin, BNP 04/27/20 04/28/20 04/28/20 21:27 03:33 05:30 Troponin I < 0.02 < 0.02 < 0.02 B-Natriuretic Peptide 429.9 H Echo: Pending Imaging - Results Chest X-ray: Image Reviewed EKG: Image Reviewed Assessment/Plan Uncontrolled HTN acute respiratory distress; hx "asthma" for the past 10 yrs Hx DVT/PE atypical chest pain morbid obesity HDL DM Rec: TNI < 0.02 x 3 EKG: NSR; RBBB Elevated LDL cholesterol: Start atorvastatin 80 mg daily (pt says she is on Zocor and Zetia at home, and was recently prescribed a 3rd agent (?fibrate)). Continue rivaroxaban for systemic anticoagulation. ECHO for LVEF, wall thickness and motion, valve status, chamber sizes. Dietary consultation. F/u pulmonary w/u. Pt says she had a stress test done recently by her computer scientist; f/u results.
[2020-04-28] MEDS ORDERED: ATORVASTATIN CA 80 MG TABLET (FP) PO ONE (11:25)
--- NOTE | 2020-04-28 11:38 | ECHO ---
Version: 1 Name: MANUEL LAMAR Exam: Adult Echocardiogram Study Date: 04/28/2020, 10:13 AM Age: 60 Years MMode/2D Measurements & Calculations IVSd: 1.41 cm LVIDs: 2.6 cm LVIDd: 4.1 cm LVPWd: 1.50 cm LAV (MOD-bp): 62.0 ml ACS: 1.74 cm Ao root diam: 3.1 cm LVOT diam: 1.85 cm LA dimension: 3.9 cm Doppler Measurements & Calculations MV E max andres: 55.3 cm/sec Med E/e': 9.0 MV A max andres: 48.9 cm/sec Med Peak E' Andres: 6.1 cm/sec MV E/A: 1.13 Lat E/e': 6.4 Lat Peak E' Andres: 8.7 cm/sec Ao max P.3 mmHg Ao V2 max: 134.9 cm/sec AI P1/2t: 771.0 msec Procedure A two-dimensional transthoracic echocardiogram with color flow and Doppler was performed. The patien t was in normal sinus rhythm during the exam. Left Ventricle The left ventricle is normal in size. There is mild concentric left ventricular hypertrophy. Left ve ntricular systolic function is normal. Ejection Fraction = 65%. The transmitral spectral Doppler flow pattern is suggestive of impaired LV relaxation. Right Ventricle The right ventricle is mildly dilated. The right ventricular systolic function is normal. Atria The left atrium is mildly dilated. Right atrial size is normal. Mitral Valve The mitral valve is grossly normal. There is mild mitral regurgitation. Tricuspid Valve The tricuspid valve is not well visualized. There is trace tricuspid regurgitation. There was insuff icient TR detected to calculate RV systolic pressure. Aortic Valve The aortic valve is not well visualized. No hemodynamically significant valvular aortic stenosis. Mi ld aortic regurgitation. Pulmonic Valve The pulmonic valve is not well visualized. Great Vessels The aortic root is normal size. Pericardium/Pleura There is no pericardial effusion. Tech Comments technically difficult. Summary Statements A two-dimensional transthoracic echocardiogram with color flow and Doppler was performed. The left ventricle is normal in size. There is mild concentric left ventricular hypertrophy. Left ventricular systolic function is normal. The transmitral spectral Doppler flow pattern is suggestive of impaired LV relaxation. The right ventricle is mildly dilated. The left atrium is mildly dilated. There is mild mitral regurgitation. There is trace tricuspid regurgitation. There was insufficient TR detected to calculate RV systolic pressure. No hemodynamically significant valvular aortic stenosis. There is no pericardial effusion. MD Celestino Nunez 04/28/2020, 11:37 AM Ordering Physician: Nic Lester Referring Physician: PERFECTO Performed By: Nandini Griffith
[2020-04-28] MEDS ORDERED: ATORVASTATIN CA 40 MG TABLET (FP) ONE (11:55)
[2020-04-28 12:37] LABS: BILIRUBIN,DIRECT 0.4 mg/dL (0.0-0.2)
--- NOTE | 2020-04-28 14:07 | PN ---
Teaching Attending Note Name of Resident: Sheldon Flanagan ATTENDING PHYSICIAN STATEMENT I saw and evaluated the patient. I reviewed the resident's note and discussed the case with the resident. I agree with the resident's findings and plan as documented. SUBJECTIVE: is doing well nad no cp. no sob OBJECTIVE: Last Vital Signs Temp Pulse Resp BP Pulse Ox 98.9 F 60 16 122/60 97 04/28/20 06:41 04/28/20 06:41 04/28/20 06:41 04/28/20 06:41 04/28/20 06:41 o/e is comfrtable nad alert awake oriented neck supple no jvs cvs s1/s/0 chest ctab abd benign ext no c/c/e neuro non focal ASSESSMENT AND PLAN: chest pain r/o ACS heart score 3 factor leiden V on xalreto, DVT, PE (2015), chronic extremiites swelling, HTN, HLD, GERD, hiatal hernia cervical and lumbar radicopathy with neuropathy Admitted to tele serial cardiac enzymes, negative, and echo essentially no acute abnormality, related to pts condition, and seen by the cardiology and being dced home. dose of the atorvastatin increased, and willresume home meds for above mentioned co morbidities
[2020-04-28] MEDS ORDERED: RIVAROXABAN 20 MG TABLET PO SCH (18:00)
[2020-04-28 18:25] VITALS: BP 105/65; PULSE 65; TEMP 97.1
--- NOTE | 2020-04-28 19:42 | DS ---
Physical Exam: SUBJECTIVE: No overnight events. Patient seen and examined. Endorsed Chest pain resolved. Denies SOB, palpitations, dizziness, lightheadedness. OBJECTIVE: Vital Signs Period Temp Pulse Resp BP Sys/Henley Pulse Ox Last 24 Hr 97.1 F-99.0 F 60-72 16-20 105-194/60-83 97-100 PHYSICAL EXAM GENERAL: The patient is awake, alert, and fully oriented, in no acute distress. HEENT: NT,NC MMM LUNGS: Breath sounds equal, clear to auscultation bilaterally, no wheezes, no crackles, no accessory muscle use. HEART: Regular rate and rhythm, S1, S2 without murmur, rub or gallop. ABDOMEN: obese, Soft, nontender, nondistended, normoactive bowel sounds EXTREMITIES: 2+ pulses, warm, well-perfused, 2+ edema b/l LE NEUROLOGICAL: Normal speech, gait not observed. PSYCH: Normal mood, normal affect. LABS Laboratory Results - last 24 hr 04/27/20 04/27/20 04/27/20 21:27 21:27 23:15 WBC 6.0 RBC 5.21 H Hgb 14.0 Hct 42.4 MCV 81.4 MCH 26.9 MCHC 33.0 RDW 13.8 Plt Count 139 MPV 10.8 Absolute Neuts (auto) 3.9 Neutrophils % 64.0 Lymphocytes % 22.5 Monocytes % 10.2 Eosinophils % 2.3 Basophils % 1.0 Nucleated RBC % 0 PT with INR 11.40 INR 0.97 PTT (Actin FS) 29.5 Sodium 142 Potassium 3.7 Chloride 104 Carbon Dioxide 28 Anion Gap 9 BUN 12.5 Creatinine 1.1 Est GFR (CKD-EPI)AfAm 63.20 Est GFR (CKD-EPI)NonAf 54.53 Random Glucose 113 H Hemoglobin A1c % Calcium 9.2 Phosphorus Magnesium Total Bilirubin 1.3 H Direct Bilirubin AST 27 ALT 37 Alkaline Phosphatase 65 Creatine Kinase 108 Troponin I < 0.02 B-Natriuretic Peptide 429.9 H Total Protein 7.0 Albumin 3.7 Triglycerides Cholesterol Total LDL Cholesterol HDL Cholesterol Lipase TSH Urine Color Urine Appearance Urine pH Ur Specific [place] Urine Protein Urine Glucose (UA) Urine Ketones Urine Blood Urine Nitrite Urine Bilirubin Urine Urobilinogen Ur Leukocyte Esterase 04/28/20 04/28/20 04/28/20 02:15 03:33 03:33 WBC RBC Hgb Hct MCV MCH MCHC RDW Plt Count MPV Absolute Neuts (auto) Neutrophils % Lymphocytes % Monocytes % Eosinophils % Basophils % Nucleated RBC % PT with INR INR PTT (Actin FS) Sodium Potassium Chloride Carbon Dioxide Anion Gap BUN Creatinine Est GFR (CKD-EPI)AfAm Est GFR (CKD-EPI)NonAf Random Glucose Hemoglobin A1c % Calcium Phosphorus Magnesium Total Bilirubin Direct Bilirubin AST ALT Alkaline Phosphatase Creatine Kinase Troponin I < 0.02 B-Natriuretic Peptide Total Protein Albumin Triglycerides Cholesterol Total LDL Cholesterol HDL Cholesterol Lipase 89 TSH Urine Color Yellow Urine Appearance Clear Urine pH 6.5 Ur Specific [place] 1.009 L Urine Protein Negative Urine Glucose (UA) Negative Urine Ketones Negative Urine Blood Negative Urine Nitrite Negative Urine Bilirubin Negative Urine Urobilinogen 1.0 Ur Leukocyte Esterase Negative 04/28/20 04/28/20 04/28/20 05:30 05:30 05:30 WBC 5.3 RBC 4.96 Hgb 13.3 Hct 39.8 MCV 80.1 MCH 26.8 MCHC 33.4 RDW 13.9 Plt Count 131 L MPV 10.4 Absolute Neuts (auto) Neutrophils % Lymphocytes % Monocytes % Eosinophils % Basophils % Nucleated RBC % PT with INR INR PTT (Actin FS) Sodium 143 Potassium 3.5 Chloride 105 Carbon Dioxide 27 Anion Gap 11 BUN 13.1 Creatinine 1.1 Est GFR (CKD-EPI)AfAm 63.20 Est GFR (CKD-EPI)NonAf 54.53 Random Glucose 120 H Hemoglobin A1c % 6.5 H Calcium 8.9 Phosphorus 4.5 Magnesium 2.1 Total Bilirubin 1.4 H Direct Bilirubin 0.4 H AST 24 ALT 34 Alkaline Phosphatase 61 Creatine Kinase Troponin I < 0.02 B-Natriuretic Peptide Total Protein 6.5 Albumin 3.3 L Triglycerides 224 H Cholesterol 224 H Total LDL Cholesterol 150 H HDL Cholesterol 36 L Lipase TSH 2.92 Urine Color Urine Appearance Urine pH Ur Specific [place] Urine Protein Urine Glucose (UA) Urine Ketones Urine Blood Urine Nitrite Urine Bilirubin Urine Urobilinogen Ur Leukocyte Esterase HOSPITAL COURSE: 60F w/ pmh of factor V leiden on xalreto, DVT, PE (2015), chronic lower extremity swelling, HTN, HLD, GERD, asthma, and hiatal hernia, presented to [facility] with complaint of substernal chest pressure. Had occurred while laying in bed. Thinks her chest wall is tender to touch. Has had GERD in the past, but didnt think her CP was similar to past episodes of GERD. EKG showed NSR, RBBB, vet rate 67. Trop neg x3. Cholesterol panel notable for TCholesterol 224, TG 224, LDL 150, HDL 36. Echo done which showed midl LVH, LVEF 65%. Cardiology(Kelly) was consulted. Started on Atorvastatin 80mg, in addition to zeita. HbA1C was 6.5 and BNP was 429.9. Deemed stable for discharge home Date of Admission:04/27/20 Date of Discharge: 04/28/20 Minutes to complete discharge: 43 Discharge Summary Problems reviewed: Yes Reason For Visit: CHEST PAIN Current Active Problems Chest pain (Acute) Condition: Stable - Instructions Diet, Activity, Other Instructions: You came into the hospital for chest pain. EKG of your heart showed a normal heart rhythm, with a Right bundle branch block. A right bundle branch block means that you have abnormal conduction of electrical activity in your R heart. You heart proteins were low, indicating that you did NOT have a heart attack. You were given medication for your pain. X-ray of your chest did not show evidence of acute pathology, and ultrasound of your legs did not show evidence of a clot. Labwork shows your hemoglobin A1C is 6.5, indicating that you have diabetes. The labs also showed that you have high cholesterol . Please maintain a low fat, low cholesterol, low sugar diet. Your symptoms improved. You are stable for discharge. MEDICATIONS Please START taking Atorvastatin[LIPITOR] 80mg, once nightly Please continue your other home medications as prescribed. FOLLOW-UP Please follow-up with your primary care physician, Dr. Cerda, regarding your recent hospitalization and for general health maintenance. Please discuss lifestyle modifications regarding your newly diagnosed diabetes. Please follow-up with outside rigger, Dr. Samuel or your regular outside rigger, regarding your recent bout of chest pain. ADDITIONAL INSTRUCTIONS Please maintain a low fat/cholesterol/sugar/sodium diet. Please call 911 or come directly to the emergency department if you experience chest pain, shortness of breath, loss of alertness/awareness, loss of function, chest pain, unusual headache, vision change, difficulty speaking, numbness, tingling, unusual bleeding, or any alarming symptoms. Referrals: Julia Cerda MD [Other] Usman Mendoza MD [Staff Physician] - Disposition: HOME - Home Medications Comprehensive Discharge Medication List: Ambulatory Orders Calcium Carb/Vitamin D3/Vit K1 [Calcium + D Soft Chewable Tab] 1 each PO DAILY 07/29/14 Cetirizine HCl [Zyrtec -] 10 mg PO DAILY 07/29/14 Cholecalciferol (Vitamin D3) [Vitamin D3] 600 unit PO BID 07/29/14 Citalopram Hydrobromide [Celexa -] 40 mg PO HS 07/29/14 Esomeprazole Mag Trihydrate [Nexium] 40 mg PO BID 07/29/14 Fluticasone/Salmeterol [Advair Hfa 230-21 Mcg Inhaler] 2 inh PO BID 07/29/14 Folic Acid - 1 mg PO DAILY 07/29/14 Gabapentin [Neurontin] 1,200 mg PO HS 07/29/14 Gabapentin [Neurontin] 300 mg PO TID PRN 07/29/14 Montelukast Na [Singulair -] 10 mg PO HS 07/29/14 Multivitamins [Multivit ([facility] Formulary)] 1 tab PO DAILY 07/29/14 Simvastatin [Zocor -] 40 mg PO HS 07/29/14 Meclizine HCl [Antivert -] 12.5 mg PO TID PRN 07/01/16 Rivaroxaban [Xarelto -] 20 mg PO DAILY 07/01/16 Atorvastatin Ca [Lipitor] 80 mg PO HS #30 tablet 04/28/20 Ezetimibe [Zetia -] 10 mg PO DAILY 04/28/20 Furosemide [Lasix -] 20 mg PO DAILY 04/28/20 Losartan Potassium 100 mg PO DAILY 04/28/20 This patient is new to me today: Yes Date on this admission: 04/28/20 Emergency Visit: No Critical Care patient: No - Discharge Referral Referred to [facility] Med P.C.: No ATTENDING PHYSICIAN STATEMENT I saw and evaluated the patient. I reviewed the resident's note and discussed the case with the resident. I agree with the resident's findings and plan as documented. SUBJECTIVE: OBJECTIVE: ASSESSMENT AND PLAN:
[2020-04-28] MEDS ORDERED: GABAPENTIN 1200 MG PO SCH (22:00)
[2020-04-28] MEDS ORDERED: PATIENT'S OWN MEDICATION (NON-FORMULARY) (Simvastatin 40 MG) PO SCH (22:00)
[2020-04-28] MEDS ORDERED: MONTELUKAST NA 10 MG TABLET PO SCH (22:00)
[2020-04-28] MEDS ORDERED: PATIENT'S OWN MEDICATION (NON-FORMULARY) (Citalopram Hydrobromide [Celexa -] 40 MG) PO SCH (22:00)
[2020-04-28] MEDS ORDERED: ATORVASTATIN CA 20 MG TABLET (FP) PO SCH (22:00)
[2020-04-28] MEDS ORDERED: GABAPENTIN 400 MG CAPSULE PO SCH (22:00)
[2020-04-29] MEDS ORDERED: ATORVASTATIN CA 80 MG TABLET (FP) PO SCH (22:00)
== END 2020-04-28 20:00 | disposition home or self-care (01) ==
LOC: JER 20:02 → JERBED 23:13 → INTOOBSV 23:13
PROVIDERS: ADMIT Internal Medicine; ATTEND Internal Medicine
PROC: 3E033NZ Introduction of Analgesics, Hypnotics, Sedatives into Peripheral Vein, Percutaneous Approach (ICD-10-PCS; principal; 2020-04-27)
DX: R06.03 Acute respiratory distress (principal); J45.909 Unspecified asthma, uncomplicated; I10 Essential (primary) hypertension; R07.89 Other chest pain; E66.01 Morbid (severe) obesity due to excess calories; Z68.41 Body mass index [BMI] 40.0-44.9, adult; D68.2 Hereditary deficiency of other clotting factors; R60.0 Localized edema; E78.5 Hyperlipidemia, unspecified; K21.9 Gastro-esophageal reflux disease without esophagitis; K44.9 Diaphragmatic hernia without obstruction or gangrene; Z86.718 Personal history of other venous thrombosis and embolism; Z79.01 Long term (current) use of anticoagulants; Z88.8 Allergy status to other drugs, medicaments and biological substances; Z91.018 Allergy to other foods
CPT/HCPCS: 36415; 71045-TC-FY; 80053; 80061; 81003; 82248; 82550; 83036; 83690; 83721; 83735; 83880; 84100; 84443; 84484; 85025; 85027; 85610; 85730; 93005; 93010; 93306-TC; 93970-TC; 96374; 99285-25; G0378; J0131; U0003

== ENCOUNTER 2020-05-11 15:54 | Inpatient (IN) | payer OTHER ==
--- NOTE | 2020-05-11 18:15 | PDOC ---
Attending Attestation - Resident Resident Name: Kwan Winters - ED Attending Attestation I have performed the following: I have examined & evaluated the patient, The case was reviewed & discussed with the resident, I agree w/resident's findings & plan, Exceptions are as noted - HPI HPI: 05/11/20 18:15 60YOF with h/o factor V leiden on Xarelto, DVT, PE (2016), chronic extremity swelling, HTN, HLD, GERD, hiatal hernia who p/w vertigo which she notes is her normal vertigo, but this time with pre-syncope as well. She additionally notes 5-6 episodes of vomiting, a week of watery diarrhea, chest pain, and vague abdominal pain. She explains that she called 911 today because she had a pre- syncopal episode. - Physicial Exam PE: 05/11/20 18:26 GENERAL: appears older than stated age, nontoxic-appearing, no distress, answers questions appropriately HEENT: PERRLA, EOMI, moist mucous membranes NECK/BACK: no midline ttp, no spinal stepoff or deformity, no hematoma, full ROM, neck supple CARDIOVASCULAR: regular rate/rhythm, no MGR, strong peripheral pulses, capillary refill <2 seconds, extremities wwp, no edema LUNGS/RESPIRATORY: no respiratory distress, CTAB GI/ABDOMEN: symmetric [id number], normoactive BS, soft, no ttp, no midline pulsatile masses : no CVA tenderness MSK/EXTREMITIES: no acute-appearing muscle atrophy, no acute deformity, chronic BLE lymphedema DERM/SKIN: warm and dry, no pallor, no jaundice, no rash, no pathologic- appearing bruising, no skin breakdown, no cuts, no lesions NEUROLOGICAL: GCS 15, CN II-XII grossly intact, 5/5 strength proximally and distally, no facial droop, ambulating to bathroom with assistance stated per her normal baseline - Medical Decision Making 05/11/20 18:29 60YOF with h/o vertigo who p/w nausea, vomiting, diarrhea, and now vertigo and lightheadedness. Also with other complaints including diarrhea and also chest discomfort. Initial Vital Signs Temp Pulse Resp BP Pulse Ox 98.6 F 66 19 162/75 99 05/11/20 16:48 05/11/20 16:48 05/11/20 16:48 05/11/20 16:48 05/11/20 16:48 Neuro exam and remainder of exam is benign. Most likely lightheadedness e.g. dehydration, electrolyte derangement e.g. from vomiting and diarrhea. Possible intracranial process given the headache and vertigo and thus the patient is appropriate for HCT. Will do workup as noted below and medicate for sxs then PO challenge and re-assess. She may require admission or obs for chest pain or for continued symptoms. Provider Orders Category Date Time Status Decision to Admit to Hospital Routine Admission 05/11/20 20:55 Active ABDOMEN & PELVIS CT WITH CONTR [CT] Stat CT Scan 05/12/20 00:[address] WITHOUT CONTRAST [CT] Stat CT Scan 05/11/20 18:34 Completed ELECTROCARDIOGRAM [CARD] Stat Cardiology 05/11/20 18:33 Completed Cardiac Monitoring Continuous Care 05/11/20 18:33 Completed EKG needed NOW Care 05/11/20 18:33 Completed Isolation Precautions As directed Care 05/12/20 00:33 Active CARDIAC PROFILE ([facility]) Stat Lab 05/11/20 18:50 Completed CBC WITH DIFFERENTIAL Stat Lab 05/11/20 18:50 Completed COMP METABOLIC PANEL Stat Lab 05/11/20 18:50 Completed COVID-19 Stat Lab 05/12/20 00:00 Completed MAGNESIUM Stat Lab 05/11/20 18:50 Completed PT & APTT Stat Lab 05/11/20 18:50 Completed Acetaminophen Injection [Ofirmev Injection -] Medication 05/11/20 19:10 Discontinued 1,000 mg IVPB ONCE ONE Acetaminophen Injection [Ofirmev Injection -] 100 ml Medication 05/11/20 19:33 Discontinued IVPB UD IV Insert NOW Phy Order 05/11/20 18:33 Completed CHEST PA & LAT [RAD] Stat Radiology 05/11/20 18:33 Completed Lab Results WBC 8.3 K/mm3 (4.0-10.0) 05/11/20 18:50 RBC 5.43 M/mm3 (3.60-5.2) H 05/11/20 18:50 Hgb 14.8 GM/dL (10.7-15.3) 05/11/20 18:50 Hct 44.1 % (32.4-45.2) 05/11/20 18:50 MCV 81.2 fl (80-96) 05/11/20 18:50 MCH 27.2 pg (25.7-33.7) 05/11/20 18:50 MCHC 33.5 g/dl (32.0-36.0) 05/11/20 18:50 RDW 13.8 % (11.6-15.6) 05/11/20 18:50 Plt Count 201 K/MM3 (134-434) D 05/11/20 18:50 MPV 9.9 fl (7.5-11.1) 05/11/20 18:50 Absolute Neuts (auto) 6.2 K/mm3 (1.5-8.0) 05/11/20 18:50 Neutrophils % 74.8 % (42.8-82.8) 05/11/20 18:50 Lymphocytes % 19.3 % (8-40) 05/11/20 18:50 Monocytes % 4.7 % (3.8-10.2) 05/11/20 18:50 Eosinophils % 0.5 % (0-4.5) 05/11/20 18:50 Basophils % 0.7 % (0-2.0) 05/11/20 18:50 Nucleated RBC % 0 % (0-0) 05/11/20 18:50 PT with INR 12.40 SEC (9.7-13.0) 05/11/20 18:50 INR 1.05 (0.83-1.09) 05/11/20 18:50 PTT (Actin FS) 31.2 SECONDS (25.2-36.5) 05/11/20 18:50 Sodium 140 mmol/L (136-145) 05/11/20 18:50 Potassium 3.9 mmol/L (3.5-5.1) 05/11/20 18:50 Chloride 104 mmol/L (98-107) 05/11/20 18:50 Carbon Dioxide 23 mmol/L (21-32) 05/11/20 18:50 Anion Gap 13 MMOL/L (8-16) 05/11/20 18:50 BUN 15.7 mg/dL (7-18) 05/11/20 18:50 Creatinine 1.1 mg/dL (0.55-1.3) 05/11/20 18:50 Est GFR (CKD-EPI)AfAm 63.20 05/11/20 18:50 Est GFR (CKD-EPI)NonAf 54.53 05/11/20 18:50 Random Glucose 100 mg/dL (74-106) 05/11/20 18:50 Calcium 9.7 mg/dL (8.5-10.1) 05/11/20 18:50 Magnesium 1.9 mg/dL (1.8-2.4) 05/11/20 18:50 Total Bilirubin 1.2 mg/dL (0.2-1) H 05/11/20 18:50 AST 39 U/L (15-37) H 05/11/20 18:50 ALT 55 U/L (13-61) 05/11/20 18:50 Alkaline Phosphatase 76 U/L (45-117) 05/11/20 18:50 Creatine Kinase 78 U/L (26-192) 05/11/20 18:50 Troponin I < 0.02 ng/ml (0.00-0.05) 05/11/20 18:50 Total Protein 7.8 g/dl (6.4-8.2) 05/11/20 18:50 Albumin 4.0 g/dl (3.4-5.0) 05/11/20 18:50 COVID-19 (JONATHAN) Not detected (Not Detected) 05/12/20 00:00 CT/HEAD CT WITHOUT CONTRAST Cranial CT without contrast Clinical information: left-sided headache, emesis Multiplanar imaging was performed. Intravenous contrast was not administered. No intraparenchymal hemorrhage is seen. There is no CT evidence of acute subarachnoid hemorrhage. No extra-axial fluid collection is noted. There is no obvious mass lesion on noncontrast imaging. No discrete infarct is identified within the limitations of CT. There is no definite abnormal intracranial attenuation. The ventricles and cisterns appear unremarkable. No definite pathologic ca lvarial defect is visualized. Impression: No CT evidence of acute intracranial pathology. RAD/CHEST PA LAT Chest: Chest pain 2 views of the chest reveal clear lungs, sharp angles, prominent mediastinum and intact soft tissues. There are degenerative changes with wedging. Since 04/27/2020 there is no change of an adverse nature. Impression: No acute chest pathology. Admission per resident note. Heart Score/ECG Review - History History: Slightly suspicious - Electrocardiogram EKG: Non specific repolarization disturbance - Age Age: 45-65 - Risk Factors Risk Factors Heart Score: Yes Hx Hypercholesterolemia, Yes Hx Hypertension, Yes Hx Obesity Based on the list above the patient has:: >/=3 risk factors or Hx atherosclerotic disease - Troponin Troponin: </= normal limit - Score Heart Score - Total: 4 #1 Sinus rhythm, rate 64, normal axis, RBBB, no ischemic ST-T changes Discharge - Discharge Information Problems reviewed: Yes Clinical Impression/Diagnosis: Vertigo Chest pain Qualifiers: Chest pain type: unspecified Qualified Code(s): R07.9 - Chest pain, unspecified Diarrhea Qualifiers: Diarrhea type: unspecified type Qualified Code(s): R19.7 - Diarrhea, unspecified Emesis Qualifiers: Vomiting type: unspecified Vomiting Intractability: unspecified Nausea presence: with nausea Qualified Code(s): R11.2 - Nausea with vomiting, unspecified Condition: Guarded - Admission Yes - Follow up/Referral - Patient Discharge Instructions - Post Discharge Activity
--- NOTE | 2020-05-11 18:26 | PDOC ---
History of Present Illness - General Chief Complaint: Nausea/Vomiting Stated Complaint: NAUSEA/VOMITING Time Seen by Provider: 05/11/20 17:40 - History of Present Illness Initial Comments: 05/11/20 18:15 60 F with hx of leiden V on xalreto, DVT, PE (2016), chronic LE swelling, HTN, HLD, GERD, hiatal hernia, morbid obesity, BIBA from home because she felt so dizzy she was going to pass out. She states she has vertigo and has been taking more meclizine than usual for it. Today, she felt vertigo so bad that she though she would pass out, so she called 911. She describes it as having her head in a box and it spinning round and round. She also complains of 2 weeks of watery diarrhea 6-7 times per day; 4 days of NBNB emesis 4-5 times per day; intermittent burning chest pain/tightness for 2 weeks that is worse with change in position, not exertional, not relieved by rest, not worse with deep inspiration; left sided headache different from her usual headache without phono/photophobia; elevated BP this morning to 195. She also states she was recently treated for a UTI but did not finish the course of Macrobid. She also She states she came to the ER two weeks prior with similar vertigo symptoms and chest pain. PMH: as above PSH: hysterectomy, cholecystectomy Home Medication List Medication Instructions Recorded Confirmed Type Calcium Carb/Vitamin D3/Vit K1 1 each PO DAILY 07/29/14 05/11/20 History [Calcium + D Soft Chewable Tab] Cetirizine HCl [Zyrtec -] 10 mg PO DAILY 07/29/14 05/11/20 History Cholecalciferol (Vitamin D3) 600 unit PO BID 07/29/14 05/11/20 History [Vitamin D3] Citalopram Hydrobromide [Celexa -] 40 mg PO HS 07/29/14 05/11/20 History Esomeprazole Mag Trihydrate 40 mg PO BID 07/29/14 05/11/20 History [Nexium] Fluticasone/Salmeterol [Advair Hfa 2 inh PO BID 07/29/14 05/11/20 History 230-21 Mcg Inhaler] Folic Acid - 1 mg PO DAILY 07/29/14 05/11/20 History Gabapentin [Neurontin] 1,200 mg PO HS 07/29/14 05/11/20 History Gabapentin [Neurontin] 300 mg PO TID PRN 07/29/14 05/11/20 History Montelukast Na [Singulair -] 10 mg PO HS 07/29/14 05/11/20 History Multivitamins [Multivit ([facility] 1 tab PO DAILY 07/29/14 05/11/20 History Formulary)] Simvastatin [Zocor -] 40 mg PO HS 07/29/14 05/11/20 History Meclizine HCl [Antivert -] 12.5 mg PO TID PRN 07/01/16 05/11/20 History Rivaroxaban [Xarelto -] 20 mg PO DAILY 07/01/16 05/11/20 History Ezetimibe [Zetia -] 10 mg PO DAILY 04/28/20 05/11/20 History Furosemide [Lasix -] 20 mg PO DAILY 04/28/20 05/11/20 History Losartan Potassium 100 mg PO DAILY 04/28/20 05/11/20 History Nitrofurantoin Macrocrystal 100 mg PO 05/11/20 History [Nitrofurantoin] Oxybutynin Chloride [Oxybutynin 10 mg PO DAILY 05/11/20 05/11/20 History Chloride ER] Potassium Chloride [Klor-Con M20] 20 meq PO DAILY 05/11/20 05/11/20 History Allergies Allergy/AdvReac Type Severity Reaction Status Date / Time azithromycin Allergy Severe Hives Verified 05/11/20 16:57 [From Zithromax Z-Maxim] piroxicam [From Feldene] Allergy Unknown Verified 05/11/20 17:08 amitriptyline AdvReac Severe diarrhea Verified 05/11/20 16:57 aspirin AdvReac Severe gi problems Verified 05/11/20 16:57 celecoxib [From Celebrex] AdvReac Severe gi problems Verified 05/11/20 16:57 alendronate sodium AdvReac Unknown Verified 05/11/20 17:11 [From Fosamax] [place] And Derivatives AdvReac Unknown Verified 05/11/20 17:11 dextromethorphan AdvReac Unknown Verified 05/11/20 17:11 [From Actinel] fluconazole AdvReac Unknown Verified 05/11/20 17:11 guaifenesin [From Actinel] AdvReac Unknown Verified 05/11/20 17:11 ibandronate sodium AdvReac Unknown Verified 05/11/20 17:11 [From Boniva] pseudoephedrine AdvReac Unknown Verified 05/11/20 17:11 [From Actinel] sulfamethoxazole AdvReac Unknown Verified 05/11/20 17:11 [From Sulfamethoxazole-Trimethoprim] tomato AdvReac Unknown Verified 05/11/20 17:11 trimethoprim AdvReac Unknown Verified 05/11/20 17:11 [From Sulfamethoxazole-Trimethoprim] string beans AdvReac Severe diarrhea Uncoded 05/11/20 16:57 PCP: Julia SEGOVIA GENERAL/CONSTITUTIONAL: No fever or chills. No weakness. HEAD, EYES, EARS, NOSE AND THROAT: No change in vision. No ear pain or discharge. No sore throat. CARDIOVASCULAR: +chest pain ,no shortness of breath RESPIRATORY: No cough, wheezing, or hemoptysis. GASTROINTESTINAL: + nausea, vomiting, diarrhea. GENITOURINARY: No dysuria, increased frequency, or change in urination. MUSCULOSKELETAL: no arthralgias or myalgias SKIN: No rash NEUROLOGIC: +vertigo, headache. no loss of consciousness, or change in strength/sensation. ENDOCRINE: No increased thirst. No abnormal weight change HEMATOLOGIC/LYMPHATIC: No anemia, easy bleeding ALLERGIC/IMMUNOLOGIC: No hives or skin allergy. PE: GENERAL: Awake, alert, and fully oriented, in no acute distress. HEAD: No signs of trauma, normocephalic, atraumatic EYES: PERRLA, EOMI, sclera anicteric, conjunctiva clear ENT: Auricles normal inspection, hearing grossly normal, nares patent, oropharynx clear without exudates. Moist mucosa NECK: Normal ROM, supple, no lymphadenopathy, JVD, or masses LUNGS: No distress, speaks full sentences, clear to auscultation bilaterally HEART: Regular rate and rhythm, normal S1 and S2, no murmurs, rubs or gallops, peripheral pulses normal and equal bilaterally. ABDOMEN: Soft, diffusely tender to palpation without guarding or rebound tenderness. EXTREMITIES : Normal range of motion. No clubbing or cyanosis. No pitting edema. Chronic swelling, no redness. diffusely tender to palpation in all extremities, back, chest NEUROLOGICAL: Cranial nerves II through XII grossly intact. No nystagmus. Normal speech, no focal sensorimotor deficits SKIN: Warm, Dry, normal turgor, no rashes or lesions noted Vital Signs Temp Pulse Resp BP Pulse Ox 98.6 F 66 19 162/75 99 05/11/20 16:48 05/11/20 16:48 05/11/20 16:48 05/11/20 16:48 05/11/20 16:48 MDM 60yo female with many comorbidities presenting with acute on chronic vertigo, acute left sided headache today after a home BP reading of 190, 4 days of NBNB emesis, 2 weeks of watery diarrhea, 2 weeks of intermittent chest pain. The reason she called 911 is for the vertigo. Differential for headache includes SAH vs. tension headache, so will get a non-con head CT. Her vertigo is chronic in nature. Differential for diarrhea includes c-diff in the setting of incomplete course of Macrobid. The chest pain has no typical features, but given risk factors, will plan for tele-obs admission. -CBC, CMP, coags, trops, UA -CT head -EKG -CXR -IV tylenol for headache 05/11/20 20:40 EKG: NSR with first degree AV block, rate 64, normal axis, RBBB (old), QTc 480, no ST or T wave changes Labs largely unremarkable. Mild AST elevation to 31. Chronic mild elevation in total bilirubin to 1.2 CT head: no acute findings CXR: no acute findings HEART Score 3 based off age and risk factors. Will admit to tele-obs 05/11/20 23:36 Signed out to admitting team 05/12/20 13:03 Past History - Medical History Allergies/Adverse Reactions: Allergies Allergy/AdvReac Type Severity Reaction Status Date / Time azithromycin Allergy Severe Hives Verified 05/11/20 16:57 [From Zithromax Z-Maxim] piroxicam [From Feldene] Allergy Unknown Verified 05/11/20 17:08 amitriptyline AdvReac Severe diarrhea Verified 05/11/20 16:57 aspirin AdvReac Severe gi problems Verified 05/11/20 16:57 celecoxib [From Celebrex] AdvReac Severe gi problems Verified 05/11/20 16:57 alendronate sodium AdvReac Unknown Verified 05/11/20 17:11 [From Fosamax] [place] And Derivatives AdvReac Unknown Verified 05/11/20 17:11 dextromethorphan AdvReac Unknown Verified 05/11/20 17:11 [From Actinel] fluconazole AdvReac Unknown Verified 05/11/20 17:11 guaifenesin [From Actinel] AdvReac Unknown Verified 05/11/20 17:11 ibandronate sodium AdvReac Unknown Verified 05/11/20 17:11 [From Boniva] pseudoephedrine AdvReac Unknown Verified 05/11/20 17:11 [From Actinel] sulfamethoxazole AdvReac Unknown Verified 05/11/20 17:11 [From Sulfamethoxazole-Trimethoprim] tomato AdvReac Unknown Verified 05/11/20 17:11 trimethoprim AdvReac Unknown Verified 05/11/20 17:11 [From Sulfamethoxazole-Trimethoprim] string beans AdvReac Severe diarrhea Uncoded 05/11/20 16:57 Home Medications: Ambulatory Orders Calcium Carb/Vitamin D3/Vit K1 [Calcium + D Soft Chewable Tab] 1 each PO DAILY 07/29/14 Cetirizine HCl [Zyrtec -] 10 mg PO DAILY 07/29/14 Cholecalciferol (Vitamin D3) [Vitamin D3] 600 unit PO BID 07/29/14 Citalopram Hydrobromide [Celexa -] 40 mg PO HS 07/29/14 Esomeprazole Mag Trihydrate [Nexium] 40 mg PO BID 07/29/14 Fluticasone/Salmeterol [Advair Hfa 230-21 Mcg Inhaler] 2 inh PO BID 07/29/14 Folic Acid - 1 mg PO DAILY 07/29/14 Gabapentin [Neurontin] 1,200 mg PO HS 07/29/14 Gabapentin [Neurontin] 300 mg PO TID PRN 07/29/14 Montelukast Na [Singulair -] 10 mg PO HS 07/29/14 Multivitamins [Multivit ([facility] Formulary)] 1 tab PO DAILY 07/29/14 Simvastatin [Zocor -] 40 mg PO HS 07/29/14 Meclizine HCl [Antivert -] 12.5 mg PO TID PRN 07/01/16 Rivaroxaban [Xarelto -] 20 mg PO DAILY 07/01/16 Atorvastatin Ca [Lipitor] 80 mg PO HS #30 tablet 04/28/20 Ezetimibe [Zetia -] 10 mg PO DAILY 04/28/20 Furosemide [Lasix -] 20 mg PO DAILY 04/28/20 Losartan Potassium 100 mg PO DAILY 04/28/20 Nitrofurantoin Macrocrystal [Nitrofurantoin] 100 mg PO 05/11/20 Oxybutynin Chloride [Oxybutynin Chloride ER] 10 mg PO DAILY 05/11/20 Potassium Chloride [Klor-Con M20] 20 meq PO DAILY 05/11/20 Anemia: No Asthma: Yes (LAST USED ALBUTEROL 1 1/2 MOS AGO,HAD BRONCHITIS,FINISHED LEVAQUIN 07/25/14) Cancer: No Cardiac Disorders: No (MILD MURMUR) CVA: No COPD: Yes CHF: No Dementia: No Diabetes: No GI Disorders: Yes (GERD,COLON POLYPS) Disorders: No HTN: Yes Hypercholesterolemia: Yes Liver Disease: No Seizures: Yes (LAST SEIZURE OVER 35 YEARS AGO) Thyroid Disease: No - Surgical History Abdominal Surgery: No Appendectomy: No Cardiac Surgery: No Cholecystectomy: Yes Lung Surgery: No Neurologic Surgery: No Orthopedic Surgery: Yes (CARPAL TUNNEL BILATERAL,LEFT SHOULDER ARTHROSCOPY) - Reproductive History Is Patient Now?: No - Psycho-Social/Smoking History Smoking History: Never smoked Have you smoked in the past 12 months: No Information on smoking cessation initiated: No - Substance Abuse Hx (Audit-C & DAST Scrn) How often the patient has a drink containing alcohol: Never Score: In Men: 4 or > Positive; In Women: 3 or > Positive: 0 Screen Result (Pos requires Nsg. Audit-10AR): Negative In the last yr the pt used illegal drug/Rx for NonMed reason: No Score: Yes response is considered Positive: 0 Screen Result (Positive result requires Nsg. DAST-10): Negative *Physical Exam - Vital Signs Last Vital Signs Temp Pulse Resp BP Pulse Ox 98.6 F 66 19 162/75 99 05/11/20 16:48 05/11/20 16:48 05/11/20 16:48 05/11/20 16:48 05/11/20 16:48 Heart Score/ECG Review - History History: Slightly suspicious - Electrocardiogram EKG: Normal - Age Age: 45-65 - Risk Factors Risk Factors Heart Score: Yes Hx Hypercholesterolemia, Yes Hx Hypertension, Yes Hx Obesity Based on the list above the patient has:: >/=3 risk factors or Hx at herosclerotic disease - Troponin Troponin: </= normal limit - Score Heart Score - Total: 3 ED Treatment Course - LABORATORY CBC & Chemistry Diagram: 05/12/20 05:20 05/12/20 05:20 Discharge - Discharge Information Problems reviewed: Yes Clinical Impression/Diagnosis: Vertigo Chest pain Qualifiers: Chest pain type: unspecified Qualified Code(s): R07.9 - Chest pain, unspecified Diarrhea Qualifiers: Diarrhea type: unspecified type Qualified Code(s): R19.7 - Diarrhea, unspecified Emesis Qualifiers: Vomiting type: unspecified Vomiting Intractability: unspecified Nausea presence: with nausea Qualified Code(s): R11.2 - Nausea with vomiting, unspecified - Follow up/Referral - Patient Discharge Instructions - Post Discharge Activity
[2020-05-11] MEDS ORDERED: ACETAMINOPHEN 1000 MG/100 ML VIAL (NON FORMULARY) IVPB ONE (19:10)
[2020-05-11 19:12] LABS: BASO % 0.7 % (0-2.0); EOS % 0.5 % (0-4.5); HEMATOCRIT 44.1 % (32.4-45.2); HEMOGLOBIN 14.8 GM/dL (10.7-15.3); LYMPH % 19.3 % (8-40); MCH 27.2 pg (25.7-33.7); MCHC 33.5 g/dl (32.0-36.0); MEAN CELL VOLUME 81.2 fl (80-96); MEAN PLT VOLUME 9.9 fl (7.5-11.1); MONO % 4.7 % (3.8-10.2); NEUT % 74.8 % (42.8-82.8); PLATELET COUNT 201 K/MM3 (134-434); RBC 5.43 M/mm3 (3.60-5.2); RDW 13.8 % (11.6-15.6); WHITE BLOOD COUNT 8.3 K/mm3 (4.0-10.0)
[2020-05-11 19:17] LABS: INR 1.05 (0.83-1.09); PROTHROMBIN TIME (PATIENT) 12.4 SEC (9.7-13.0)
[2020-05-11 19:21] LABS: ACTIVATED PTT 31.2 SECONDS (25.2-36.5)
[2020-05-11] MEDS ORDERED: ACETAMINOPHEN INJECTION 100 ML IVPB ONE (19:33)
[2020-05-11 19:49] LABS: ALK PHOS 76 U/L (45-117); ANION GAP 13 MMOL/L (8-16); BILIRUBIN,TOTAL 1.2 mg/dL (0.2-1); BLOOD UREA NITROGEN 15.7 mg/dL (7-18); CALCIUM 9.7 mg/dL (8.5-10.1); CHLORIDE 104 mmol/L (98-107); CO2 23 mmol/L (21-32); CREATININE 1.1 mg/dL (0.55-1.3); GLUCOSE,RANDOM 100 mg/dL (74-106); MAGNESIUM 1.9 mg/dL (1.8-2.4); POTASSIUM 3.9 mmol/L (3.5-5.1); SGOT/AST 39 U/L (15-37); SGPT/ALT 55 U/L (13-61); SODIUM 140 mmol/L (136-145); TOT PROT 7.8 g/dl (6.4-8.2)
[2020-05-12] MEDS ORDERED: GABAPENTIN 300 MG CAPSULE PO PRN (03:27)
[2020-05-12] MEDS ORDERED: SODIUM CHLORIDE 1,000 ML IV SCH (03:45)
--- NOTE | 2020-05-12 04:57 | HP ---
CHIEF COMPLAINT: vomiting, diarrhea, burning CP, dizziness PCP: Dr. Cerda HISTORY OF PRESENT ILLNESS: 60yo F with hx of leiden V on xalreto, DVT, PE (2016), chronic LE swelling, HTN, HLD, GERD, hiatal hernia, asthma, morbid obesity, and vertigo presented with dizziness, high home BP of 195/90, 2 weeks of light-yellow diarrhea, and 3-4 days of clear liquid vomiting. Patient said that she has not been able to eat or drink by mouth since the vomiting started. She also experiences alternating hot/cold spells, generalized abdominal pain, headaches, dysuria with dark cloudy urine, and CP that is burning and intermittent in nature. Patient was recently admitted 04/28/20 for non-radiating burning chest pain/pressure. ER course was notable for: (1) labs: troponin < 0.02, total bili 1.2, COVID pending (2) CXR: image unremarkable (official read pending) (3) head CT: no acute intracranial pathology (4) EKG: NSR with 1st degree AV block, normal axis, old RBBB, QTc 480, no ST or T wave changes Recent Travel: none recently PAST MEDICAL HISTORY: per above PAST SURGICAL HISTORY: hysterectomy cholecystectomy baloon sinus surgery planned surgery on Jul 27 for her cervical radiculopathy Family History: father: HLD, of "massive heart attack" mother: throat cancer with mets to all female organs 2 healthy children 2 healthy grandchildren Social History: Smoking: denied Alcohol: denied Drugs: denied Job: on disability Home: lives alone with home health nursing assistance M-F for 5 hours each day Allergies azithromycin [From Zithromax Z-Maxim] Allergy (Severe, Verified 05/11/20 16:57) Hives piroxicam [From Feldene] Allergy (Unknown, Verified 05/11/20 17:08) amitriptyline Adverse Reaction (Severe, Verified 05/11/20 16:57) diarrhea aspirin Adverse Reaction (Severe, Verified 05/11/20 16:57) gi problems celecoxib [From Celebrex] Adverse Reaction (Severe, Verified 05/11/20 16:57) gi problems alendronate sodium [From Fosamax] Adverse Reaction (Unknown, Verified 05/11/20 17:11) [place] And Derivatives Adverse Reaction (Unknown, Verified 05/11/20 17:11) dextromethorphan [From Actinel] Adverse Reaction (Unknown, Verified 05/11/20 17:11) fluconazole Adverse Reaction (Unknown, Verified 05/11/20 17:11) guaifenesin [From Actinel] Adverse Reaction (Unknown, Verified 05/11/20 17:11) ibandronate sodium [From Boniva] Adverse Reaction (Unknown, Verified 05/11/20 17:11) pseudoephedrine [From Actinel] Adverse Reaction (Unknown, Verified 05/11/20 17:11) sulfamethoxazole [From Sulfamethoxazole-Trimethoprim] Adverse Reaction (Unknown, Verified 05/11/20 17:11) tomato Adverse Reaction (Unknown, Verified 05/11/20 17:11) trimethoprim [From Sulfamethoxazole-Trimethoprim] Adverse Reaction (Unknown, Verified 05/11/20 17:11) string beans Adverse Reaction (Severe, Uncoded 05/11/20 16:57) diarrhea HOME MEDICATIONS: Home Medications Medication Instructions Recorded Calcium Carb/Vitamin D3/Vit K1 1 each PO DAILY 07/29/14 [Calcium + D Soft Chewable Tab] Cetirizine HCl [Zyrtec -] 10 mg PO DAILY 07/29/14 Cholecalciferol (Vitamin D3) 600 unit PO BID 07/29/14 [Vitamin D3] Citalopram Hydrobromide [Celexa -] 40 mg PO HS 07/29/14 Esomeprazole Mag Trihydrate 40 mg PO BID 07/29/14 [Nexium] Fluticasone/Salmeterol [Advair Hfa 2 inh PO BID 07/29/14 230-21 Mcg Inhaler] Folic Acid - 1 mg PO DAILY 07/29/14 Gabapentin [Neurontin] 1,200 mg PO HS 07/29/14 Gabapentin [Neurontin] 300 mg PO TID PRN 07/29/14 Montelukast Na [Singulair -] 10 mg PO HS 07/29/14 Multivitamins [Multivit ([facility] 1 tab PO DAILY 07/29/14 Formulary)] Simvastatin [Zocor -] 40 mg PO HS 07/29/14 Meclizine HCl [Antivert -] 12.5 mg PO TID PRN 07/01/16 Rivaroxaban [Xarelto -] 20 mg PO DAILY 07/01/16 Atorvastatin Ca [Lipitor] 80 mg PO HS #30 tablet 04/28/20 Ezetimibe [Zetia -] 10 mg PO DAILY 04/28/20 Furosemide [Lasix -] 20 mg PO DAILY 04/28/20 Losartan Potassium 100 mg PO DAILY 04/28/20 Nitrofurantoin Macrocrystal 100 mg PO 05/11/20 [Nitrofurantoin] Oxybutynin Chloride [Oxybutynin 10 mg PO DAILY 05/11/20 Chloride ER] Potassium Chloride [Klor-Con M20] 20 meq PO DAILY 05/11/20 REVIEW OF SYSTEMS per above PHYSICAL EXAMINATION Vital Signs - 24 hr 05/11/20 05/11/20 05/12/20 16:48 19:41 02:34 Temperature 98.6 F 98.4 F Pulse Rate 66 Pulse Rate [ 66 Apical] Pulse Rate [ 65 Right Radial] Respiratory 19 16 20 Rate Blood Pressure 162/75 Blood Pressure 157/56 L 165/87 [Left Arm] O2 Sat by Pulse 99 99 97 Oximetry (%) GENERAL: F, overweight, AAOx3, in moderate distress, occasionally coughing with wrenching HEAD: Normal with no signs of trauma EYES: PERRL, direct and consensual pupillary reflex intact, extraocular movements intact, conjunctiva clear LUNGS: CTAB, no wheezing appreciated HEART: RRR, S1 and S2 distant without murmurs ABDOMEN: Soft, generalized tenderness, distended, active bowel sounds, no guarding or rebound appreciated MUSCULOSKELETAL: generalized tenderness, no particular CVA tenderness appreciated EXTREMITIES: radial and dorsalis pedis pulses palpable, full strength in all extremities bilaterally, obese, no peripheral edema appreciated NEUROLOGICAL: Cranial nerves II-XII grossly intact, normal speech PSYCHIATRIC: Cooperative, occasionally avoids eye contact. frustrated and exhausted mood, affect congruent with stated mood SKIN: Warm to touch, no rashes or lesions noted Laboratory Results - last 24 hr 05/11/20 05/11/20 05/11/20 18:50 18:50 18:50 WBC 8.3 RBC 5.43 H Hgb 14.8 Hct 44.1 MCV 81.2 MCH 27.2 MCHC 33.5 RDW 13.8 Plt Count 201 D MPV 9.9 Absolute Neuts (auto) 6.2 Neutrophils % 74.8 Lymphocytes % 19.3 Monocytes % 4.7 Eosinophils % 0.5 Basophils % 0.7 Nucleated RBC % 0 PT with INR 12.40 INR 1.05 PTT (Actin FS) 31.2 Sodium 140 Potassium 3.9 Chloride 104 Carbon Dioxide 23 Anion Gap 13 BUN 15.7 Creatinine 1.1 Est GFR (CKD-EPI)AfAm 63.20 Est GFR (CKD-EPI)NonAf 54.53 Random Glucose 100 Calcium 9.7 Magnesium 1.9 Total Bilirubin 1.2 H AST 39 H ALT 55 Alkaline Phosphatase 76 Creatine Kinase 78 Troponin I < 0.02 Total Protein 7.8 Albumin 4.0 ASSESSMENT/PLAN: 60yo F with hx of leiden V on xalreto, DVT, PE (2015), chronic LE swelling, HTN, HLD, GERD, hiatal hernia, asthma, morbid obesity, vertigo, and recent admission for non-radiating burning chest pain/pressure (04/28/20) presented with dizziness, high home BP of 195/90, 2 weeks of light-yellow diarrhea, and 3-4 days of clear liquid vomiting and was admitted for r/o ACS. #CP - likely due to GERD given clinical picture, need to r/o ACS troponin < 0.[address] or T wave changes - avoid QTc prolonging meds - continue home PPI #Vomiting and Diarrhea --likely viral enteritis - ordered Cdiff PCR - ordered stool ova and parasites - ordered stool studies - 60cc/h NS #generalized pain/tenderness - ofirmev PRN - ordered CT abdomen/pelvis with contrast #Dizziness - likely due to vomiting/wretching/diarrhea causing dehydration in setting of poor PO intake - continue gently hydration 60cc/h NS #other medical problems - continue home meds #PPX - DVT: xarelto - GI: pantoprazole #FEN - 60cc/h NS - replete lytes PRN - NPO until seen by cardio (stress test?) #Dispo: continue monitoring on telemetry Family Medical History Family History: As Documented Visit type - Emergency Visit Emergency Visit: Yes ED Registration Date: 05/12/20 Care time: The patient presented to the Emergency Department on the above date and was hospitalized for further evaluation of their emergent condition. - New Patient This patient is new to me today: Yes Date on this admission: 05/12/20 - Critical Care Critical Care patient: No ATTENDING PHYSICIAN STATEMENT I saw and evaluated the patient. I reviewed the resident's note and discussed the case with the resident. I agree with the resident's findings and plan as documented. SUBJECTIVE: OBJECTIVE: ASSESSMENT AND PLAN:
--- NOTE | 2020-05-12 05:38 | PN ---
Teaching Attending Note Name of Resident: Linda Mckeon ATTENDING PHYSICIAN STATEMENT I saw and evaluated the patient. I reviewed the resident's note and discussed the case with the resident. I agree with the resident's findings and plan as documented. SUBJECTIVE: 60 yo F with hx of leiden V on xalreto, DVT, PE (2016), chronic LE swelling, HTN, HLD, GERD, hiatal hernia, asthma, morbid obesity, and vertigo presented with chest pain, dizziness, generalized weakness and elevated BP at home - 195/90, She also c/o 2 weeks of on and off diarrhea - non bloody, watery associated with dizziness associated with 3-4 episodes of non bloody vomiting everyday for last 3-4 days. Patient is a poor historian and gives answer to Yes to all questions and has multiple complaints. chest pain is retro sternal, non radiating, burning. She also c/o dysuria for past few days. OBJECTIVE: Last Vital Signs Temp Pulse Resp BP Pulse Ox 98.4 F 65 20 165/87 97 05/12/20 02:34 05/12/20 02:34 05/12/20 02:34 05/12/20 02:34 05/12/20 02:34 GENERAL: Awake, alert, and fully oriented, in no acute distress. morbid obese HEAD: No signs of trauma, normocephalic, atraumatic EYES: PERRLA, EOMI, sclera anicteric, conjunctiva clear ENT: Auricles normal inspection, hearing grossly normal, nares patent, o ropharynx clear without exudates. Moist mucosa NECK: Normal ROM, supple, no lymphadenopathy, JVD, or masses LUNGS: No distress, speaks full sentences, clear to auscultation bilaterally HEART: Regular rate and rhythm, normal S1 and S2, no murmurs, rubs or gallops, peripheral pulses normal and equal bilaterally. ABDOMEN: Soft, mild diffuse tenderness EXTREMITIES : Normal range of motion. No clubbing or cyanosis. non pitting edema, tender on pal[ation NEUROLOGICAL: Cranial nerves II through XII grossly intact. Normal speech, no focal sensorimotor deficits SKIN: Warm, Dry, normal turgor, no rashes or lesions noted ASSESSMENT AND PLAN: chest pain r/o ACS possible related to GERD and vomiting Acute gastroenteritis likely viral Dizziness associated with dehydration PMH as above Admit to tele serial troponins EKG Stool studies IV hydration Antiemetics PRN resume home meds Avoid QTC prolonging agents cont Xarelto PPI check C diff get CT abd and pelvis with contrast Check UA, TSh,. mg,phos, CPK, vit B12 HTN- uncontrolled. resume home meds discussed with staff
[2020-05-12] MEDS ORDERED: PANTOPRAZOLE 40 MG TABLET ONE (06:02)
[2020-05-12] MEDS: PANTOPRAZOLE 40 MG TABLET PO SCH ×2 (06:23→21:02)
[2020-05-12 06:48] LABS: BASO % 0.6 % (0-2.0); EOS % 0.6 % (0-4.5); HEMATOCRIT 39.3 % (32.4-45.2); HEMOGLOBIN 13.4 GM/dL (10.7-15.3); LYMPH % 17.5 % (8-40); MCH 27.2 pg (25.7-33.7); MCHC 34.1 g/dl (32.0-36.0); MEAN CELL VOLUME 79.6 fl (80-96); MEAN PLT VOLUME 9.8 fl (7.5-11.1); MONO % 6.1 % (3.8-10.2); NEUT % 75.2 % (42.8-82.8); PLATELET COUNT 190 K/MM3 (134-434); RBC 4.94 M/mm3 (3.60-5.2); RDW 13.9 % (11.6-15.6); WHITE BLOOD COUNT 8.1 K/mm3 (4.0-10.0)
[2020-05-12 07:21] LABS: ALBUMIN 3.6 g/dl (3.4-5.0); ALK PHOS 66 U/L (45-117); ANION GAP 12 MMOL/L (8-16); BILIRUBIN,TOTAL 1.1 mg/dL (0.2-1); CHLORIDE 104 mmol/L (98-107); CO2 23 mmol/L (21-32); CREATININE 0.8 mg/dL (0.55-1.3); GLUCOSE,RANDOM 112 mg/dL (74-106); MAGNESIUM 1.8 mg/dL (1.8-2.4); PHOSPHOROUS 3.8 mg/dL (2.5-4.9); POTASSIUM 3.8 mmol/L (3.5-5.1); SGOT/AST 30 U/L (15-37); SGPT/ALT 45 U/L (13-61); SODIUM 139 mmol/L (136-145); TOT PROT 6.9 g/dl (6.4-8.2)
[2020-05-12] MEDS ORDERED: PATIENT'S OWN MEDICATION (NON-FORMULARY) (Fluticasone/Salmeterol [Advair Hfa 230-21 Mcg In PO SCH (10:00)
[2020-05-12] MEDS ORDERED: PATIENT'S OWN MEDICATION (NON-FORMULARY) (Cetirizine Hcl 10 MG) PO SCH (10:00)
[2020-05-12] MEDS ORDERED: PATIENT'S OWN MEDICATION (NON-FORMULARY) (Losartan Potassium [Losartan Potassium] 100 MG) PO SCH (10:00)
[2020-05-12] MEDS ORDERED: PATIENT'S OWN MEDICATION (NON-FORMULARY) (Esomeprazole Mag Trihydrate [Nexium] 40 MG) PO SCH (10:00)
[2020-05-12] MEDS ORDERED: PATIENT'S OWN MEDICATION (NON-FORMULARY) (Calcium Carb/Vitamin D3/Vit K1 [Calcium + D Soft PO SCH (10:00)
[2020-05-12] MEDS ORDERED: CHOLECALCIFEROL PO SCH (10:00)
[2020-05-12] MEDS ORDERED: PT OWN MED DRAWER 7, Y5N ONE (10:12)
[2020-05-12] MEDS: CITALOPRAM HYDROBROMIDE 20 MG TABLET PO SCH ×3 (10:13→21:16)
[2020-05-12] MEDS: CALCIUM 500MG/VIT-D 200 UNITS COMBO TABLET (FP) PO SCH (10:13)
[2020-05-12] MEDS: LORATADINE 10 MG TABLET PO SCH (10:13)
[2020-05-12] MEDS: EZETIMIBE 10 MG TABLET (FP) PO SCH ×3 (10:13→21:16)
[2020-05-12] MEDS: POTASSIUM CHLORIDE TABS 20 MEQ TABLET.ER (FP) PO SCH (10:13)
[2020-05-12] MEDS: FOLIC ACID 1 MG TABLET (FP) PO SCH (10:13)
[2020-05-12] MEDS: FUROSEMIDE 20 MG TABLET (FP) PO SCH (10:13)
[2020-05-12] MEDS: LOSARTAN POTASSIUM 50 MG TABLET (FP) PO SCH (10:13)
[2020-05-12] MEDS: MULTIVITAMINS (DAILY MVI) TABLET (FP) PO SCH (10:13)
--- NOTE | 2020-05-12 10:16 | EKG ---
Test Reason : Blood Pressure : / mmHG Vent. Rate : 060 BPM Atrial Rate : 060 BPM P-R Int : 212 ms QRS Dur : 142 ms QT Int : 498 ms P-R-T Axes : -09 041 007 degrees QTc Int : 498 ms SINUS RHYTHM WITH 1ST DEGREE A-V BLOCK RIGHT BUNDLE BRANCH BLOCK ABNORMAL ECG WHEN COMPARED WITH ECG OF 11-MAY-2020 16:28, NO SIGNIFICANT CHANGE WAS FOUND Confirmed by MD Manjinder, Randy ([id number]) on 05/12/2020 10:16:03 AM Referred By: Confirmed By:Randy Dunbar MD
[2020-05-12 11:18] VITALS: BMI 42.0
[2020-05-12] MEDS: CHOLECALCIFEROL (VIT D SOLUTION) 400 UNIT/1 ML DROPS PO SCH ×2 (11:28→22:50)
[2020-05-12] MEDS: BUDESONIDE/FORMETEROL FUMARATE 160/4.5 mcg INHALER IH SCH ×2 (11:28→21:18)
--- NOTE | 2020-05-12 12:59 | PN ---
Physical Exam: SUBJECTIVE: Patient seen and examined. Pt. endorses diffuse abdominal discomfort. Pt. endorses diarrhea/soft stools. Pt. endorses having a negative colonoscopy last year at [facility]? with Dr. Mckeon. Pt. endorses continued dysuria, states that she was late in picking up her medications and that she was taking the antibiotics ONCE a day instead of TWICE a day. OBJECTIVE: Vital Signs Period Temp Pulse Resp BP Sys/Henlye Pulse Ox Last 24 Hr 98.2 F-98.7 F 60-66 16-20 138-165/56-87 97-99 GENERAL: The patient is awake, alert, and fully oriented, in no acute distress. HEAD: Normal with no signs of trauma. EYES: Sclera anicteric, conjunctiva clear. ENT: Dry mucous membranes. NECK: Trachea midline, full range of motion, supple. LUNGS: Breath sounds equal, clear to auscultation bilaterally anteriorly, no wheezes, no crackles, no accessory muscle use. HEART: Regular rate and rhythm, S1, S2 without murmur, rub or gallop. ABDOMEN: Soft, morbidly obese, diffuse tenderness? to palpation, nondistended, normoactive bowel sounds, no guarding, no rebound EXTREMITIES: 2+ dorsal pedal pulses, warm, well-perfused, no edema. NEUROLOGICAL: Normal speech, gait not observed. PSYCH: Normal mood, normal affect. SKIN: Warm, dry Laboratory Results - last 24 hr 05/11/20 05/11/20 05/11/20 18:50 18:50 18:50 WBC 8.3 RBC 5.43 H Hgb 14.8 Hct 44.1 MCV 81.2 MCH 27.2 MCHC 33.5 RDW 13.8 Plt Count 201 D MPV 9.9 Absolute Neuts (auto) 6.2 Neutrophils % 74.8 Lymphocytes % 19.3 Monocytes % 4.7 Eosinophils % 0.5 Basophils % 0.7 Nucleated RBC % 0 PT with INR 12.40 INR 1.05 PTT (Actin FS) 31.2 Sodium 140 Potassium 3.9 Chloride 104 Carbon Dioxide 23 Anion Gap 13 BUN 15.7 Creatinine 1.1 Est GFR (CKD-EPI)AfAm 63.20 Est GFR (CKD-EPI)NonAf 54.53 POC Glucometer Random Glucose 100 Calcium 9.7 Phosphorus Magnesium 1.9 Total Bilirubin 1.2 H AST 39 H ALT 55 Alkaline Phosphatase 76 Creatine Kinase 78 Troponin I < 0.02 Total Protein 7.8 Albumin 4.0 05/12/20 05/12/20 05/12/20 05:20 05:20 11:36 WBC 8.1 RBC 4.94 Hgb 13.4 Hct 39.3 MCV 79.6 L MCH 27.2 MCHC 34.1 RDW 13.9 Plt Count 190 MPV 9.8 Absolute Neuts (auto) 6.1 Neutrophils % 75.2 Lymphocytes % 17.5 Monocytes % 6.1 Eosinophils % 0.6 Basophils % 0.6 Nucleated RBC % 0 PT with INR INR PTT (Actin FS) Sodium 139 Potassium 3.8 Chloride 104 Carbon Dioxide 23 Anion Gap 12 BUN 16.0 Creatinine 0.8 Est GFR (CKD-EPI)AfAm 92.87 Est GFR (CKD-EPI)NonAf 80.13 POC Glucometer 118 Random Glucose 112 H Calcium 9.0 Phosphorus 3.8 Magnesium 1.8 Total Bilirubin 1.1 H AST 30 ALT 45 Alkaline Phosphatase 66 Creatine Kinase Troponin I < 0.02 Total Protein 6.9 Albumin 3.6 Active Medications Generic Name Dose Route Start Last Admin Trade Name Freq PRN Reason Stop Dose Admin Atorvastatin Calcium 80 mg 05/12/20 22:00 Lipitor - PO HS STORM Budesonide/Formoterol Fumarate 2 puff 05/12/20 10:00 05/12/20 11:28 Symbicort 160/4.5mcg - IH 2 puff BID STORM Administration Calcium Carbonate/Cholecalciferol 1 tab 05/12/20 10:00 05/12/20 10:13 Os-Altaf 500+D - PO 1 tab DAILY STORM Administration Cholecalciferol 600 unit 05/12/20 10:00 05/12/20 11:28 Vitamin D3 Oral Solution - PO 600 unit BID STORM Administration Citalopram Hydrobromide 40 mg 05/12/20 22:00 Celexa - PO HS STORM Ezetimibe 10 mg 05/12/20 22:00 Zetia - PO HS STORM Folic Acid 1 mg 05/12/20 10:00 05/12/20 10:13 Folic Acid - PO 1 mg DAILY STORM Administration Furosemide 20 mg 05/12/20 10:00 05/12/20 10:13 Lasix - PO 20 mg DAILY STORM Administration Gabapentin 300 mg 05/12/20 03:27 Neurontin - PO TID PRN NEUROPATHIC PAIN Gabapentin 1,200 mg 05/12/20 22:00 Neurontin - PO HS STORM Sodium Chloride 1,000 mls @ 60 mls/hr 05/12/20 03:45 05/12/20 03:48 Normal Saline - IV 05/12/20 20:24 60 mls/hr ASDIR STORM Administration Ceftriaxone Sodium 2 gm in 50 mls @ 100 mls/hr 05/12/20 16:00 Ceftriaxone 2 Gm-D5w Bag IVPB DAILY [facility] Protocol Loratadine 10 mg 05/12/20 10:00 05/12/20 10:13 Claritin - PO 10 mg DAILY STORM Administration Losartan Potassium 100 mg 05/12/20 10:00 05/12/20 10:13 Cozaar - PO 100 mg DAILY STOM[facility] Administration Montelukast Sodium 10 mg 05/12/20 22:00 Singulair - PO HS [facility] Multivitamins/Minerals/Vitamin C 1 tab 05/12/20 10:00 05/12/20 10:13 Tab-A-Vit - PO 1 tab DAILY STORM Administration Non-Formulary Medication 10 mg 05/12/20 10:00 Oxybutynin Chloride [Oxybutynin Chloride Er] PO DAILY [facility] Pantoprazole Sodium 40 mg 05/12/20 07:00 05/12/20 06:23 Protonix - PO 40 mg Q12H STORM Administration Potassium Chloride 20 meq 05/12/20 10:00 05/12/20 10:13 K-Dur - PO 20 meq DAILY STORM Administration Rivaroxaban 20 mg 05/12/20 18:00 Xarelto PO DAILY@1800 [facility] ASSESSMENT/PLAN: Pt. is a 60 y.o. F w/ PMHx. of Factor V Leiden deficiency, DVT, PE (2016- on Xarelto), chronic LE swelling, HTN, HLD, GERD, hiatal hernia, asthma, morbid obesity, vertigo, and recent admission for non-radiating burning chest pain/pressure (04/28/20) presented with dizziness, high home BP of 195/90, 2 weeks of light-yellow diarrhea, and 3-4 days of clear liquid vomiting and was admitted for r/o ACS. #Chest Pain - possibly 2/2 GERD - ACS ruled out - troponin Neg x 2 - EKG without ST or T wave changes - avoid QTc prolonging meds - continue home PPI - Cardiology consult appreciated #Vomiting and Diarrhea - possibly 2/2 incomplete antibiotic regimen - will r/o infectious etiology as Pt. on Nexium 40mg BID at home for GERD. Pt. states she was tald she had gastritis in the past when she had EGD over 10 years ago. - f/u Cdiff PCR, stool ova and parasites, H. Pylori stool antigen, Altaf protectin, and occult blood - Clear liquid diet - CT abdomen/pelvis with contrast showed fatty liver but no acute pathology #Generalized pain/tenderness - ofirmev PRN - CT A/P w/ contrast reviewed #Factor V Leiden #Hx. of DVT and PE #HTN #HLD #MO - continue home meds - dietary consult appreciated #PPX - DVT: xarelto - GI: pantoprazole #FEN - 60cc/h NS - replete lytes PRN - Clear liquid diet #Dispo: continue monitoring on telemetry Visit type - Emergency Visit Emergency Visit: Yes ED Registration Date: 05/12/20 Care time: The patient presented to the Emergency Department on the above date and was hospitalized for further evaluation of their emergent condition. - New Patient This patient is new to me today: Yes Date on this admission: 05/12/20 - Critical Care Critical Care patient: No - Discharge Referral Referred to [facility] No ATTENDING PHYSICIAN STATEMENT I saw and evaluated the patient. I reviewed the resident's note and discussed the case with the resident. I agree with the resident's findings and plan as documented. SUBJECTIVE: OBJECTIVE: ASSESSMENT AND PLAN:
--- NOTE | 2020-05-12 13:05 | CON.ID ---
Consult Consult Specialty:: infectious diseases Referred by:: - Past Medical History Cardio/Vascular: Yes: CHF, HTN, Hyperlipdemia Pulmonary: Yes: Asthma, Pulmonary Embolus ...: No Musculoskeletal: Yes: Other (cervical spine disease: planning for surgery as outpt) - Alcohol/Substance Use Hx Alcohol Use: No - Smoking History Smoking history: Never smoked Have you smoked in the past 12 months: No Home Medications - Allergies Allergies/Adverse Reactions: Allergies Allergy/AdvReac Type Severity Reaction Status Date / Time azithromycin Allergy Severe Hives Verified 05/11/20 16:57 [From Zithromax Z-Maxim] piroxicam [From Feldene] Allergy Unknown Verified 05/11/20 17:08 amitriptyline AdvReac Severe diarrhea Verified 05/11/20 16:57 aspirin AdvReac Severe gi problems Verified 05/11/20 16:57 celecoxib [From Celebrex] AdvReac Severe gi problems Verified 05/11/20 16:57 alendronate sodium AdvReac Unknown Verified 05/11/20 17:11 [From Fosamax] [place] Derivatives AdvReac Unknown Verified 05/11/20 17:11 dextromethorphan AdvReac Unknown Verified 05/11/20 17:11 [From Actinel] fluconazole AdvReac Unknown Verified 05/11/20 17:11 guaifenesin [From Actinel] AdvReac Unknown Verified 05/11/20 17:11 ibandronate sodium AdvReac Unknown Verified 05/11/20 17:11 [From Boniva] pseudoephedrine AdvReac Unknown Verified 05/11/20 17:11 [From Actinel] sulfamethoxazole AdvReac Unknown Verified 05/11/20 17:11 [From Sulfamethoxazole-Trimethoprim] tomato AdvReac Unknown Verified 05/11/20 17:11 trimethoprim AdvReac Unknown Verified 05/11/20 17:11 [From Sulfamethoxazole-Trimethoprim] string beans AdvReac Severe diarrhea Uncoded 05/11/20 16:57 - Home Medications Home Medications: Ambulatory Orders Calcium Carb/Vitamin D3/Vit K1 [Calcium + D Soft Chewable Tab] 1 each PO DAILY 07/29/14 Cetirizine HCl [Zyrtec -] 10 mg PO DAILY 07/29/14 Cholecalciferol (Vitamin D3) [Vitamin D3] 600 unit PO BID 07/29/14 Citalopram Hydrobromide [Celexa -] 40 mg PO HS 07/29/14 Esomeprazole Mag Trihydrate [Nexium] 40 mg PO BID 07/29/14 Fluticasone/Salmeterol [Advair Hfa 230-21 Mcg Inhaler] 2 inh PO BID 07/29/14 Folic Acid - 1 mg PO DAILY 07/29/14 Gabapentin [Neurontin] 1,200 mg PO HS 07/29/14 Gabapentin [Neurontin] 300 mg PO TID PRN 07/29/14 Montelukast Na [Singulair -] 10 mg PO HS 07/29/14 Multivitamins [Multivit ([facility] Formulary)] 1 tab PO DAILY 07/29/14 Simvastatin [Zocor -] 40 mg PO HS 07/29/14 Meclizine HCl [Antivert -] 12.5 mg PO TID PRN 07/01/16 Rivaroxaban [Xarelto -] 20 mg PO DAILY 07/01/16 Atorvastatin Ca [Lipitor] 80 mg PO HS #30 tablet 04/28/20 Ezetimibe [Zetia -] 10 mg PO DAILY 04/28/20 Furosemide [Lasix -] 20 mg PO DAILY 04/28/20 Losartan Potassium 100 mg PO DAILY 04/28/20 Nitrofurantoin Macrocrystal [Nitrofurantoin] 100 mg PO 05/11/20 Oxybutynin Chloride [Oxybutynin Chloride ER] 10 mg PO DAILY 05/11/20 Potassium Chloride [Klor-Con M20] 20 meq PO DAILY 05/11/20 Physical Exam Vital Signs: Vital Signs Temperature 98.2 F 05/12/20 09:30 Pulse Rate 63 05/12/20 09:30 Respiratory Rate 20 05/12/20 09:30 Blood Pressure 158/74 05/12/20 09:30 O2 Sat by Pulse Oximetry (%) 98 05/12/20 09:30 Labs: CBC, BMP 05/12/20 05:20 05/12/20 05:20
[2020-05-12 13:59] LABS: PH,URINE 6.5 (5.0-8.0); URINE APPEARANCE CLEAR; URINE BILIRUBIN NEGATIVE (NEGATIVE); URINE COLOR YELLOW; URINE GLUCOSE (UA) NEGATIVE (NEGATIVE); URINE KETONE NEGATIVE (NEGATIVE); URINE LEUK ESTERASE NEGATIVE (NEGATIVE); URINE NITRITE NEGATIVE (NEGATIVE); URINE PROTEIN NEGATIVE (NEGATIVE)
--- NOTE | 2020-05-12 14:01 | CON.CARD ---
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 She states she has vertigo and has been taking more meclizine than usual for it. Today, she felt vertigo so bad that she though she would pass out, so she called 911. She describes it as having her head in a box and it spinning round and round. She also complains of 2 weeks of watery diarrhea 6-7 times per day; 4 days of NBNB emesis 4-5 times per day; intermittent burning chest pain/tightness for 2 weeks that is worse with change in position, not exertional, not relieved by rest, not worse with deep inspiration; left sided headache different from her usual headache without phono/photophobia; elevated BP this morning to 195. She also states she was recently treated for a UTI but did not finish the course of Macrobid. She came to the ER two weeks prior with similar vertigo symptoms and chest pain. Pt says she had a stress MIBI 2 years ago that was negative for ischemia. 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 - History Source History Provided By: Patient, Medical Record Limitations to Obtaining History: No Limitations - Past Medical History Cardio/Vascular: Yes: CHF (diastolic), HTN, Hyperlipdemia Pulmonary: Yes: Asthma, Pulmonary Embolus Reproductive: Yes: Postmenopausal ...: No Heme/Onc: Yes: Other (Leiden V def) Psych: Yes: Anxiety, Depression Musculoskeletal: Yes: Other (cervical spine disease: planning for surgery as outpt) Rheumatology: Yes: Other (arthritis of the knees) - Alcohol/Substance Use Hx Alcohol Use: No - Smoking History Smoking history: Never smoked Have you smoked in the past 12 months: No Home Medications - Allergies Allergies/Adverse Reactions: Allergies Allergy/AdvReac Type Severity Reaction Status Date / Time azithromycin Allergy Severe Hives Verified 05/11/20 16:57 [From Zithromax Z-Maxim] piroxicam [From Feldene] Allergy Unknown Verified 05/11/20 17:08 amitriptyline AdvReac Severe diarrhea Verified 05/11/20 16:57 aspirin AdvReac Severe gi problems Verified 05/11/20 16:57 celecoxib [From Celebrex] AdvReac Severe gi problems Verified 05/11/20 16:57 alendronate sodium AdvReac Unknown Verified 05/11/20 17:11 [From Fosamax] [place] And Derivatives AdvReac Unknown Verified 05/11/20 17:11 dextromethorphan AdvReac Unknown Verified 05/11/20 17:11 [From Actinel] fluconazole AdvReac Unknown Verified 05/11/20 17:11 guaifenesin [From Actinel] AdvReac Unknown Verified 05/11/20 17:11 ibandronate sodium AdvReac Unknown Verified 05/11/20 17:11 [From Boniva] pseudoephedrine AdvReac Unknown Verified 05/11/20 17:11 [From Actinel] sulfamethoxazole AdvReac Unknown Verified 05/11/20 17:11 [From Sulfamethoxazole-Trimethoprim] tomato AdvReac Unknown Verified 05/11/20 17:11 trimethoprim AdvReac Unknown Verified 05/11/20 17:11 [From Sulfamethoxazole-Trimethoprim] lactose AdvReac Verified 05/14/20 10:23 pepper (genus Capsicum) AdvReac Verified 05/14/20 10:22 string beans AdvReac Severe diarrhea Uncoded 05/11/20 16:57 - Home Medications Home Medications: Ambulatory Orders Calcium Carb/Vitamin D3/Vit K1 [Calcium + D Soft Chewable Tab] 1 each PO DAILY 07/29/14 Cetirizine HCl [Zyrtec -] 10 mg PO DAILY 07/29/14 Cholecalciferol (Vitamin D3) [Vitamin D3] 600 unit PO BID 07/29/14 Citalopram Hydrobromide [Celexa -] 40 mg PO HS 07/29/14 Esomeprazole Mag Trihydrate [Nexium] 40 mg PO BID 07/29/14 Fluticasone/Salmeterol [Advair Hfa 230-21 Mcg Inhaler] 2 inh PO BID 07/29/14 Folic Acid - 1 mg PO DAILY 07/29/14 Gabapentin [Neurontin] 1,200 mg PO HS 07/29/14 Gabapentin [Neurontin] 300 mg PO TID PRN 07/29/14 Montelukast Na [Singulair -] 10 mg PO HS 07/29/14 Multivitamins [Multivit ([facility] Formulary)] 1 tab PO DAILY 07/29/14 Simvastatin [Zocor -] 40 mg PO HS 07/29/14 Meclizine HCl [Antivert -] 12.5 mg PO TID PRN 07/01/16 Rivaroxaban [Xarelto -] 20 mg PO DAILY 07/01/16 Ezetimibe [Zetia -] 10 mg PO DAILY 04/28/20 Furosemide [Lasix -] 20 mg PO DAILY 04/28/20 Losartan Potassium 100 mg PO DAILY 04/28/20 Oxybutynin Chloride [Oxybutynin Chloride ER] 10 mg PO DAILY 05/11/20 Potassium Chloride [Klor-Con M20] 20 meq PO DAILY 05/11/20 Lactobacillus Acidophilus [Bacid -] 1 tab PO DAILY #14 tab 05/14/20 Nitrofurantoin Monohyd/M-Cryst [Macrobid -] 100 mg PO BID #14 capsule 05/14/20 - Risk Factors Known Risk Factors: Yes: Age, Hypercholesterolemia, Hypertension, Physical Inactivity, Other (obesity; Leiden factor def) Vital Signs: Vital Signs Temperature 98.2 F 05/12/20 09:30 Pulse Rate 63 05/12/20 09:30 Respiratory Rate 20 05/12/20 09:30 Blood Pressure 158/74 05/12/20 09:30 O2 Sat by Pulse Oximetry (%) 98 05/12/20 09:30 Constitutional: Yes: Calm, Obese Eyes: Yes: WNL HENT: Yes: WNL Neck: Yes: WNL Respiratory: Yes: Regular Gastrointestinal: Yes: Soft, Abdomen, Obese Renal/: No: Anuria Cardiovascular: Yes: Regular Rate and Rhythm JVD: No PMI: Non-Displaced Heart Sounds: Yes: S1, S2, S4 Murmur: Yes: Systolic Murmur, Grade 1 Musculoskeletal: Yes: Joint Swelling, Muscle Weakness Extremities: Yes: Cool Edema: Yes Edema: LLE: Trace, RLE: Trace Peripheral Pulses WNL: Yes Integumentary: Yes: WNL Neurological: Yes: WNL Psychiatric: Yes: WNL - Other Data Labs, Other Data: CBC, BMP 05/12/20 05:20 05/12/20 05:20 INR, PTT INR 1.05 (0.83-1.09) 05/11/20 18:50 Troponin, BNP 05/11/20 05/12/20 18:50 05:20 Troponin I < 0.02 < 0.02 Troponin, BNP 05/11/20 05/12/20 18:50 05:20 Troponin I < 0.02 < 0.02 Abnormal Lab Results 05/14/20 05/14/20 06:13 06:13 Eosinophils % 5.5 H Calcium 8.4 L Magnesium 1.7 L Echo: Report Reviewed Ejection Fraction %: LVEF > or = 40 % Imaging - Results Chest X-ray: Image Reviewed EKG: Image Reviewed Assessment/Plan Vertigo Diarrhea UTI Burning chest pain Multiple CAD risks diastolic CHF HTN HLD DM morbid obesity ?sleep apnea TNI < 0.02 Plan: COVID negative earlier admission this month; pending now BNP antibiotics per ID Avoid dehydration On atorvastatin + Zetia for elevated LDL. On losartan + furosemide (she had been on Cardura, but would not continue this medication due to increased risk of CHF); f/u BP serially F/u BUN/Cr and electrolytes. Is and Os, daily weight. Dietary consult (pt requests help with weight/DM). F/u old records; consider stress MIBI when stable. sleep studies to r/o sleep apnea
[2020-05-12] MEDS ORDERED: DEXTROSE 5%-WATER 100 ML IVPB ONE (15:35)
[2020-05-12] MEDS: CEFTRIAXONE 2 GM in DEXTROSE 5%-WATER 100 ML IVPB SCH (15:36)
[2020-05-12] MEDS ORDERED: ACETAMINOPHEN 325 MG TABLET (FP) ONE (16:06)
[2020-05-12] MEDS: ACETAMINOPHEN 325 MG TABLET (FP) PO PRN ×2 (16:07→22:15)
[2020-05-12] MEDS: RIVAROXABAN 20 MG TABLET PO SCH (17:03)
[2020-05-12] MEDS: ATORVASTATIN CA 80 MG TABLET (FP) PO SCH ×2 (21:05→21:17)
[2020-05-12] MEDS: GABAPENTIN 400 MG CAPSULE PO SCH (21:16)
[2020-05-12] MEDS: MONTELUKAST NA 10 MG TABLET PO SCH (21:17)
[2020-05-12] MEDS ORDERED: PATIENT'S OWN MEDICATION (NON-FORMULARY) (Simvastatin 40 MG) PO SCH (22:00)
[2020-05-12] MEDS ORDERED: GABAPENTIN 1200 MG PO SCH (22:00)
[2020-05-12] MEDS ORDERED: PATIENT'S OWN MEDICATION (NON-FORMULARY) (Citalopram Hydrobromide [Celexa -] 40 MG) PO SCH (22:00)
[2020-05-13] MEDS: PANTOPRAZOLE 40 MG TABLET PO SCH ×2 (06:01→18:52)
[2020-05-13 08:20] LABS: ALBUMIN 3.6 g/dl (3.4-5.0); BASO % 0.9 % (0-2.0); BILIRUBIN,TOTAL 1.4 mg/dL (0.2-1); CALCIUM 8.9 mg/dL (8.5-10.1); CREATININE 1.1 mg/dL (0.55-1.3); EOS % 4.6 % (0-4.5); HEMATOCRIT 41.1 % (32.4-45.2); HEMOGLOBIN 13.8 GM/dL (10.7-15.3); LYMPH % 27.1 % (8-40); MAGNESIUM 1.7 mg/dL (1.8-2.4); MCHC 33.5 g/dl (32.0-36.0); MEAN CELL VOLUME 80.7 fl (80-96); MEAN PLT VOLUME 9.9 fl (7.5-11.1); MONO % 8.2 % (3.8-10.2); NEUT % 59.2 % (42.8-82.8); PLATELET COUNT 162 K/MM3 (134-434); POTASSIUM 3.2 mmol/L (3.5-5.1); RDW 14.4 % (11.6-15.6); TOT PROT 6.9 g/dl (6.4-8.2); WHITE BLOOD COUNT 5.2 K/mm3 (4.0-10.0)
--- NOTE | 2020-05-13 08:54 | PN ---
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 She states she has vertigo and has been taking more meclizine than usual for it. Today, she felt vertigo so bad that she though she would pass out, so she called 911. She describes it as having her head in a box and it spinning round and round. She also complains of 2 weeks of watery diarrhea 6-7 times per day; 4 days of NBNB emesis 4-5 times per day; intermittent burning chest pain/tightness for 2 weeks that is worse with change in position, not exertional, not relieved by rest, not worse with deep inspiration; left sided headache different from her usual headache without phono/photophobia; elevated BP this morning to 195. She also states she was recently treated for a UTI but did not finish the course of Macrobid. She came to the ER two weeks prior with similar vertigo symptoms and chest pain. Pt says she had a stress MIBI 2 years ago that was negative for ischemia. 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 - Current Medication List Current Medications: Active Medications Acetaminophen (Tylenol -) 650 mg PO Q6H PRN PRN Reason: PAIN LEVEL 6-10 Last Admin: 05/12/20 22:15 Dose: 650 mg Documented by: Atorvastatin Calcium (Lipitor -) 80 mg PO HS [facility] Last Admin: 05/12/20 21:05 Dose: Not Given Documented by: Budesonide/Formoterol Fumarate (Symbicort 160/4.5mcg -) 2 puff IH BID [facility] Last Admin: 05/12/20 21:18 Dose: 2 puff Documented by: Calcium Carbonate/Cholecalciferol (Os-Altaf 500+D -) 1 tab PO DAILY [facility] Last Admin: 05/12/20 10:13 Dose: 1 tab Documented by: Cholecalciferol (Vitamin D3 Oral Solution -) 600 unit PO BID [facility] Last Admin: 05/12/20 22:50 Dose: 600 unit Documented by: Citalopram Hydrobromide (Celexa -) 40 mg PO [facility] Last Admin: 05/12/20 21:16 Dose: 40 mg Documented by: Ezetimibe (Zetia -) 10 mg PO HS [facility] Last Admin: 05/12/20 21:16 Dose: 10 mg Documented by: Folic Acid (Folic Acid -) 1 mg PO DAILY [facility] Last Admin: 05/12/20 10:13 Dose: 1 mg Documented by: Furosemide (Lasix -) 20 mg PO DAILY [facility] Last Admin: 05/12/20 10:13 Dose: 20 mg Documented by: Gabapentin (Neurontin -) 300 mg PO TID PRN PRN Reason: NEUROPATHIC PAIN Gabapentin (Neurontin -) 1,200 mg PO [facility] Last Admin: 05/12/20 21:16 Dose: 1,200 mg Documented by: Ceftriaxone Sodium 2 gm/ (Dextrose) 100 mls @ 100 mls/hr IVPB DAILY [facility]; Protocol Last Admin: 05/12/20 15:36 Dose: 100 mls/hr Documented by: Loratadine (Claritin -) 10 mg PO DAILY [facility] Last Admin: 05/12/20 10:13 Dose: 10 mg Documented by: Losartan Potassium (Cozaar -) 100 mg PO DAILY [facility] Last Admin: 05/12/20 10:13 Dose: 100 mg Documented by: Montelukast Sodium (Singulair -) 10 mg PO [facility] Last Admin: 05/12/20 21:17 Dose: 10 mg Documented by: Multivitamins/Minerals/Vitamin C (Tab-A-Vit -) 1 tab PO DAILY [facility] Last Admin: 05/12/20 10:13 Dose: 1 tab Documented by: Pantoprazole Sodium (Protonix -) 40 mg PO Q12H [facility] Last Admin: 05/13/20 06:01 Dose: 40 mg Documented by: Potassium Chloride (K-Dur -) 20 meq PO DAILY [facility] Last Admin: 05/12/20 10:13 Dose: 20 meq Documented by: Rivaroxaban (Xarelto) 20 mg PO DAILY@1800 [facility] Last Admin: 05/12/20 17:03 Dose: 20 mg Documented by: Solifenacin (Vesicare -) 5 mg PO DAILY@1500 [facility] - Objective Vital Signs: Vital Signs Temperature 98.8 F 05/13/20 05:25 Pulse Rate 52 L 05/13/20 05:25 Respiratory Rate 18 05/13/20 05:25 Blood Pressure 132/73 05/13/20 05:25 O2 Sat by Pulse Oximetry (%) 98 05/13/20 05:25 Eyes: Yes: WNL, Conjunctiva Clear, EOM Intact HENT: Yes: WNL, Atraumatic, Normocephalic Neck: Yes: WNL, Supple, Trachea Midline Cardiovascular: Yes: WNL, Regular Rate and Rhythm Respiratory: Yes: WNL, Regular, CTA Bilaterally Gastrointestinal: Yes: WNL, Normal Bowel Sounds Genitourinary: Yes: WNL Musculoskeletal: Yes: WNL Extremities: Yes: WNL Edema: No Integumentary: Yes: WNL Neurological: Yes: WNL, Alert, Oriented ...Motor Strength: WNL Psychiatric: Yes: WNL Labs: CBC, BMP 05/13/20 07:08 05/13/20 07:08 INR, PTT INR 1.05 (0.83-1.09) 05/11/20 18:50 Problem List - Problems (1) Chest pain Code(s): R07.9 - CHEST PAIN, UNSPECIFIED Qualifiers: Chest pain type: unspecified Qualified Code(s): R07.9 - Chest pain, unspecified (2) Diarrhea Code(s): R19.7 - DIARRHEA, UNSPECIFIED Qualifiers: Diarrhea type: unspecified type Qualified Code(s): R19.7 - Diarrhea, unspecified (3) Emesis Code(s): R11.10 - VOMITING, UNSPECIFIED Qualifiers: Vomiting type: unspecified Vomiting Intractability: unspecified Nausea presence: with nausea Qualified Code(s): R11.2 - Nausea with vomiting, unspecified (4) Vertigo Code(s): R42 - DIZZINESS AND GIDDINESS (5) Laceration Code(s): T14.8 - OTHER INJURY OF UNSPECIFIED BODY REGION * DO NOT USE * (6) Tooth fracture Code(s): S02.5XXA - FRACTURE OF TOOTH (TRAUMATIC), INIT FOR CLOS FX Assessment/Plan Vertigo Diarrhea UTI Burning chest pain Multiple CAD risks diastolic CHF HTN HLD DM morbid obesity ?sleep apnea TNI < 0.02 Plan: COVID negative earlier admission this month; pending now BNP antibiotics per ID Avoid dehydration On atorvastatin + Zetia for elevated LDL. On losartan + furosemide (she had been on Cardura, but would not continue this medication due to increased risk of CHF); f/u BP serially F/u BUN/Cr and electrolytes. Is and Os, daily weight. Dietary consult (pt requests help with weight/DM). F/u old records; consider stress MIBI when stable. sleep studies to r/o sleep apnea
[2020-05-13] MEDS ORDERED: DEXTROSE 5%-WATER 100 ML IVPB ONE (09:02)
[2020-05-13] MEDS ORDERED: PT OWN MED DRAWER 7, Y5N ONE ×2 (09:02→10:30)
[2020-05-13] MEDS: CEFTRIAXONE 2 GM in DEXTROSE 5%-WATER 100 ML IVPB SCH (09:09)
[2020-05-13] MEDS: POTASSIUM CHLORIDE TABS 20 MEQ TABLET.ER (FP) PO SCH (09:09)
[2020-05-13] MEDS: MULTIVITAMINS (DAILY MVI) TABLET (FP) PO SCH (09:09)
[2020-05-13] MEDS: CALCIUM 500MG/VIT-D 200 UNITS COMBO TABLET (FP) PO SCH (09:10)
[2020-05-13] MEDS: BUDESONIDE/FORMETEROL FUMARATE 160/4.5 mcg INHALER IH SCH ×2 (09:10→21:12)
[2020-05-13] MEDS: LORATADINE 10 MG TABLET PO SCH (09:10)
[2020-05-13] MEDS: FOLIC ACID 1 MG TABLET (FP) PO SCH (09:10)
[2020-05-13] MEDS: FUROSEMIDE 20 MG TABLET (FP) PO SCH (09:10)
[2020-05-13] MEDS: CHOLECALCIFEROL (VIT D SOLUTION) 400 UNIT/1 ML DROPS PO SCH ×2 (09:11→22:03)
[2020-05-13] MEDS: ACETAMINOPHEN 325 MG TABLET (FP) PO PRN ×2 (09:16→21:10)
--- NOTE | 2020-05-13 10:27 | EKG ---
Test Reason : Blood Pressure : / mmHG Vent. Rate : 064 BPM Atrial Rate : 064 BPM P-R Int : 212 ms QRS Dur : 130 ms QT Int : 466 ms P-R-T Axes : 004 044 006 degrees QTc Int : 480 ms SINUS RHYTHM WITH 1ST DEGREE A-V BLOCK RIGHT BUNDLE BRANCH BLOCK ABNORMAL ECG WHEN COMPARED WITH ECG OF 27-APR-2020 21:00, NO SIGNIFICANT CHANGE WAS FOUND Confirmed by MD Manjinder, Randy ([id number]) on 05/13/2020 10:27:02 AM Referred By: Confirmed By:Randy Dunbar MD
[2020-05-13] MEDS: LOSARTAN POTASSIUM 50 MG TABLET (FP) PO SCH (10:28)
[2020-05-13] MEDS ORDERED: POTASSIUM CHLORIDE TABS 20 MEQ TABLET.ER (FP) PO ONE (10:30)
[2020-05-13] MEDS: LACTOBACILLUS ACIDOPHILUS 1 TABLET PO SCH (10:31)
--- NOTE | 2020-05-13 10:56 | PN ---
Progress Note, Physician History of Present Illness: says she had a major dirrhoeal episode awaiting for results of stool studies abd pain better - Current Medication List Current Medications: Active Medications Acetaminophen (Tylenol -) 650 mg PO Q6H PRN PRN Reason: PAIN LEVEL 6-10 Last Admin: 05/13/20 09:16 Dose: 650 mg Documented by: Atorvastatin Calcium (Lipitor -) 80 mg PO [facility] Last Admin: 05/12/20 21:05 Dose: Not Given Documented by: Budesonide/Formoterol Fumarate (Symbicort 160/4.5mcg -) 2 puff IH BID [facility] Last Admin: 05/13/20 09:10 Dose: 2 puff Documented by: Calcium Carbonate/Cholecalciferol (Os-Altaf 500+D -) 1 tab PO DAILY [facility] Last Admin: 05/13/20 09:10 Dose: 1 tab Documented by: Cholecalciferol (Vitamin D3 Oral Solution -) 600 unit PO BID [facility] Last Admin: 05/13/20 09:11 Dose: 600 unit Documented by: Citalopram Hydrobromide (Celexa -) 40 mg PO [facility] Last Admin: 05/12/20 21:16 Dose: 40 mg Documented by: Ezetimibe (Zetia -) 10 mg PO [facility] Last Admin: 05/12/20 21:16 Dose: 10 mg Documented by: Folic Acid (Folic Acid -) 1 mg PO DAILY [facility] Last Admin: 05/13/20 09:10 Dose: 1 mg Documented by: Gabapentin (Neurontin -) 1,200 mg PO [facility] Last Admin: 05/12/20 21:16 Dose: 1,200 mg Documented by: Ceftriaxone Sodium 2 gm/ (Dextrose) 100 mls @ 100 mls/hr IVPB DAILY [facility]; Protocol Last Admin: 05/13/20 09:09 Dose: 100 mls/hr Documented by: Lactobacillus Acidophilus (Bacid -) 1 tab PO DAILY [facility] Last Admin: 05/13/20 10:31 Dose: 1 tab Documented by: Loratadine (Claritin -) 10 mg PO DAILY [facility] Last Admin: 05/13/20 09:10 Dose: 10 mg Documented by: Losartan Potassium (Cozaar -) 50 mg PO DAILY [facility] Montelukast Sodium (Singulair -) 10 mg PO [facility] Last Admin: 05/12/20 21:17 Dose: 10 mg Documented by: Multivitamins/Minerals/Vitamin C (Tab-A-Vit -) 1 tab PO DAILY [facility] Last Admin: 05/13/20 09:09 Dose: 1 tab Documented by: Pantoprazole Sodium (Protonix -) 40 mg PO Q12H [facility] Last Admin: 05/13/20 06:01 Dose: 40 mg Documented by: Potassium Chloride (K-Dur -) 20 meq PO DAILY [facility] Last Admin: 05/13/20 09:09 Dose: 20 meq Documented by: Rivaroxaban (Xarelto) 20 mg PO DAILY@1800 [facility] Last Admin: 05/12/20 17:03 Dose: 20 mg Documented by: Solifenacin (Vesicare -) 5 mg PO DAILY@1500 [facility] - Objective Vital Signs: Vital Signs Temperature 98.6 F 05/13/20 09:00 Pulse Rate 53 L 05/13/20 09:00 Respiratory Rate 18 05/13/20 09:00 Blood Pressure 101/56 L 05/13/20 09:00 O2 Sat by Pulse Oximetry (%) 94 L 05/13/20 09:00 Constitutional: Yes: Calm Cardiovascular: Yes: S1, S2 Respiratory: Yes: Regular, CTA Bilaterally Gastrointestinal: Yes: Normal Bowel Sounds, Soft, Other (dirrhoea) Musculoskeletal: Yes: WNL Extremities: Yes: WNL Neurological: Yes: Alert, Oriented Psychiatric: Yes: Alert, Oriented Labs: CBC, BMP 05/13/20 07:08 05/13/20 07:08 INR, PTT INR 1.05 (0.83-1.09) 05/11/20 18:50 Assessment/Plan 60 y.o. F w/ PMHx. of Factor V Leiden deficiency, DVT, PE (2016- on Xarelto), chronic LE swelling, HTN, HLD, GERD, hiatal hernia, asthma, morbid obesity, vertigo, and recent admission for non-radiating burning chest pain/pressure (04/28/20) presented with dizziness, high home BP of 195/90, 2 weeks of light- yellow diarrhea, and 3-4 days of clear liquid vomiting and was admitted for r/o ACS. chest pain vomiting dirrhoea factor v leiden plan await for cx results monitor dirrhoea rest as per the team
--- NOTE | 2020-05-13 15:33 | PN ---
Physical Exam: SUBJECTIVE: Patient seen and examined. Pt. states her night was better. Pt. still having diarrhea but with solid components. EGD in chart reviewed. Pt. noted to have low blood pressure this AM, Losartan OBJECTIVE: Vital Signs Period Temp Pulse Resp BP Sys/Henley Pulse Ox Last 24 Hr 98 F-98.8 F 51-59 18-20 101-132/56-93 94-99 GENERAL: The patient is awake, alert, and fully oriented, in no acute distress. HEAD: Normal with no signs of trauma. EYES: Sclera anicteric, conjunctiva clear. ENT: Dry mucous membranes. NECK: Trachea midline, full range of motion, supple. LUNGS: Breath sounds equal, clear to auscultation bilaterally anteriorly, no wheezes, no crackles, no accessory muscle use. HEART: Regular rate and rhythm, S1, S2 without murmur, rub or gallop. ABDOMEN: Soft, morbidly obese, diffuse tenderness? to palpation, nondistended, normoactive bowel sounds, no guarding, no rebound EXTREMITIES: 2+ dorsal pedal pulses, warm, well-perfused, no edema. NEUROLOGICAL: Normal speech, gait not observed. PSYCH: Normal mood, normal affect. SKIN: Warm, dry Laboratory Results - last 24 hr 05/12/20 05/12/20 05/12/20 00:00 16:35 22:58 WBC RBC Hgb Hct MCV MCH MCHC RDW Plt Count MPV Absolute Neuts (auto) Neutrophils % Lymphocytes % Monocytes % Eosinophils % Basophils % Nucleated RBC % Sodium Potassium Chloride Carbon Dioxide Anion Gap BUN Creatinine Est GFR (CKD-EPI)AfAm Est GFR (CKD-EPI)NonAf POC Glucometer 118 115 Random Glucose Calcium Magnesium Total Bilirubin AST ALT Alkaline Phosphatase Total Protein Albumin COVID-19 (JONATHAN) Not detected 05/13/20 05/13/20 05/13/20 05:46 07:08 07:08 WBC 5.2 RBC 5.10 Hgb 13.8 Hct 41.1 MCV 80.7 MCH 27.0 MCHC 33.5 RDW 14.4 Plt Count 162 MPV 9.9 Absolute Neuts (auto) 3.1 Neutrophils % 59.2 D Lymphocytes % 27.1 D Monocytes % 8.2 Eosinophils % 4.6 H D Basophils % 0.9 Nucleated RBC % 0 Sodium 141 Potassium 3.2 L Chloride 104 Carbon Dioxide 25 Anion Gap 12 BUN 14.0 Creatinine 1.1 Est GFR (CKD-EPI)AfAm 63.20 Est GFR (CKD-EPI)NonAf 54.53 POC Glucometer 85 Random Glucose 114 H Calcium 8.9 Magnesium 1.7 L Total Bilirubin 1.4 H AST 37 ALT 44 Alkaline Phosphatase 64 Total Protein 6.9 Albumin 3.6 COVID-19 (JONATHAN) 05/13/20 11:08 WBC RBC Hgb Hct MCV MCH MCHC RDW Plt Count MPV Absolute Neuts (auto) Neutrophils % Lymphocytes % Monocytes % Eosinophils % Basophils % Nucleated RBC % Sodium Potassium Chloride Carbon Dioxide Anion Gap BUN Creatinine Est GFR (CKD-EPI)AfAm Est GFR (CKD-EPI)NonAf POC Glucometer 163 Random Glucose Calcium Magnesium Total Bilirubin AST ALT Alkaline Phosphatase Total Protein Albumin COVID-19 (JONATHAN) Active Medications Generic Name Dose Route Start Last Admin Trade Name Freq PRN Reason Stop Dose Admin Acetaminophen 650 mg 05/12/20 16:03 05/13/20 09:16 Tylenol - PO 650 mg Q6H PRN Administration PAIN LEVEL 6-10 Atorvastatin Calcium 80 mg 05/12/20 22:00 05/12/20 21:05 Lipitor - PO Not Given HS [facility] Budesonide/Formoterol Fumarate 2 puff 05/12/20 10:00 05/13/20 09:10 Symbicort 160/4.5mcg - IH 2 puff BID [facility] Administration Calcium Carbonate/Cholecalciferol 1 tab 05/12/20 10:00 05/13/20 09:10 Os-Altaf 500+D - PO 1 tab DAILY [facility] Administration Cholecalciferol 600 unit 05/12/20 10:00 05/13/20 09:11 Vitamin D3 Oral Solution - PO 600 unit BID [facility] Administration Citalopram Hydrobromide 40 mg 05/12/20 22:00 05/12/20 21:16 Celexa - PO 40 mg HS [facility] Administration Ezetimibe 10 mg 05/12/20 22:00 05/12/20 21:16 Zetia - PO 10 mg HS [facility] Administration Folic Acid 1 mg 05/12/20 10:00 05/13/20 09:10 Folic Acid - PO 1 mg DAILY [facility] Administration Gabapentin 1,200 mg 05/12/20 22:00 05/12/20 21:16 Neurontin - PO 1,200 mg HS [facility] Administration Ceftriaxone Sodium 2 gm/ 100 mls @ 100 mls/hr 05/12/20 16:00 05/13/20 09:09 Dextrose IVPB 100 mls/hr DAILY [facility] Administration Protocol Lactobacillus Acidophilus 1 tab 05/13/20 10:30 05/13/20 10:31 Bacid - PO 1 tab DAILY [facility] Administration Loratadine 10 mg 05/12/20 10:00 05/13/20 09:10 Claritin - PO 10 mg DAILY [facility] Administration Losartan Potassium 50 mg 05/13/20 10:22 Cozaar - PO DAILY [facility] Montelukast Sodium 10 mg 05/12/20 22:00 05/12/20 21:17 Singulair - PO 10 mg HS [facility] Administration Multivitamins/Minerals/Vitamin C 1 tab 05/12/20 10:00 05/13/20 09:09 Tab-A-Vit - PO 1 tab DAILY [facility] Administration Pantoprazole Sodium 40 mg 05/12/20 07:00 05/13/20 06:01 Protonix - PO 40 mg Q12H [facility] Administration Potassium Chloride 20 meq 05/12/20 10:00 05/13/20 09:09 K-Dur - PO 20 meq DAILY [facility] Administration Rivaroxaban 20 mg 05/12/20 18:00 05/12/20 17:03 Xarelto PO 20 mg DAILY@1800 [facility] Administration Solifenacin 5 mg 05/13/20 15:00 Vesicare - PO DAILY@1500 [facility] ASSESSMENT/PLAN: Pt. is a 60 y.o. F w/ PMHx. of Factor V Leiden deficiency, DVT, PE (2015- on Xarelto), chronic LE swelling, HTN, HLD, GERD, hiatal hernia, asthma, morbid obesity, vertigo, and recent admission for non-radiating burning chest pain/pressure (04/28/20) presented with dizziness, high home BP of 195/90, 2 weeks of light-yellow diarrhea, and 3-4 days of clear liquid vomiting and was ad mitted for r/o ACS. #Chest Pain - possibly 2/2 GERD - ACS ruled out - troponin Neg x 2 - EKG without ST or T wave changes - avoid QTc prolonging meds - continue home PPI - Cardiology consult appreciated--> Stress test when more stable, f//u with CArdiology as to inpatient vs. outpatient. #Vomiting and Diarrhea - possibly 2/2 incomplete antibiotic regimen - will r/o infectious etiology as Pt. on Nexium 40mg BID at home for GERD. Pt. states she was told she had gastritis in the past when she had EGD over 10 years ago. - EGD from 12/2018 and UGI series from 04/21/2020 in chart. EGD largely unremarkable however UGI did show gastric dysmotility. - f/u Cdiff PCR, stool ova and parasites, H. Pylori stool antigen, Altaf protectin, and occult blood - Soft diet - CT abdomen/pelvis with contrast showed fatty liver but no acute pathology - c/w Bacid - Pt. currently taking Protonix 40mg BID, unclear why as last EGD did not show significant pathology to warrant such a dose. PPI use increases the likelihood of developing GI infections such as C.Diff. #Generalized pain/tenderness - ofirmev PRN - CT A/P w/ contrast reviewed #Factor V Leiden #Hx. of DVT and PE #HTN #HLD #MO - continue home meds EXCEPT Losartan which has been held today and decreased to 50 mg for tomorrow because of hypotension. PRN Gabapentin has also been discontinued. - dietary consult appreciated #PPX - DVT: xarelto - GI: pantoprazole #FEN - 60cc/h NS - hypokalemia noted, Pt. has standing repletion of potassium and needed additional afterwards, will continue to monitor. Considered adding Aldactone but Pt. has polypharmacy and general consensus is to decrease overall medications, will therefore uptitrate potassium if there is continued need to replete. Hypokalemia likely a result of persistent diarrhea. - Clear liquid diet #Dispo: Will downgrade to telemetry Visit type - Emergency Visit Emergency Visit: Yes ED Registration Date: 05/12/20 Care time: The patient presented to the Emergency Department on the above date and was hospitalized for further evaluation of their emergent condition. - New Patient This patient is new to me today: No - Critical Care Critical Care patient: No - Discharge Referral Referred to [facility] Med P.C.: No ATTENDING PHYSICIAN STATEMENT I saw and evaluated the patient. I reviewed the resident's note and discussed the case with the resident. I agree with the resident's findings and plan as documented. SUBJECTIVE: OBJECTIVE: ASSESSMENT AND PLAN:
[2020-05-13] MEDS: RIVAROXABAN 20 MG TABLET PO SCH (17:20)
[2020-05-13] MEDS: SOLIFENACIN SUCCINATE 5 MG TAB PO SCH (17:20)
[2020-05-13] MEDS: CITALOPRAM HYDROBROMIDE 20 MG TABLET PO SCH (21:11)
[2020-05-13] MEDS: GABAPENTIN 400 MG CAPSULE PO SCH (21:11)
[2020-05-13] MEDS: EZETIMIBE 10 MG TABLET (FP) PO SCH (21:11)
[2020-05-13] MEDS: MONTELUKAST NA 10 MG TABLET PO SCH (21:12)
[2020-05-13] MEDS: ATORVASTATIN CA 80 MG TABLET (FP) PO SCH (21:21)
[2020-05-14] MEDS: PANTOPRAZOLE 40 MG TABLET PO SCH ×2 (06:06→18:47)
[2020-05-14 06:55] LABS: BASO % 1.3 % (0-2.0); EOS % 5.5 % (0-4.5); HEMATOCRIT 38.4 % (32.4-45.2); HEMOGLOBIN 12.9 GM/dL (10.7-15.3); LYMPH % 33.1 % (8-40); MCH 27.2 pg (25.7-33.7); MCHC 33.6 g/dl (32.0-36.0); MEAN CELL VOLUME 80.9 fl (80-96); NEUT % 52.1 % (42.8-82.8); PLATELET COUNT 156 K/MM3 (134-434); RBC 4.74 M/mm3 (3.60-5.2); RDW 14.1 % (11.6-15.6); WHITE BLOOD COUNT 6.1 K/mm3 (4.0-10.0)
[2020-05-14 07:26] LABS: ALBUMIN 3.4 g/dl (3.4-5.0); BILIRUBIN,TOTAL 0.6 mg/dL (0.2-1); BLOOD UREA NITROGEN 13.1 mg/dL (7-18); CALCIUM 8.4 mg/dL (8.5-10.1); MAGNESIUM 1.7 mg/dL (1.8-2.4); POTASSIUM 3.9 mmol/L (3.5-5.1); TOT PROT 6.4 g/dl (6.4-8.2)
[2020-05-14] MEDS ORDERED: DEXTROSE 5%-WATER 100 ML IVPB ONE (09:03)
[2020-05-14] MEDS: CEFTRIAXONE 2 GM in DEXTROSE 5%-WATER 100 ML IVPB SCH (09:38)
[2020-05-14] MEDS: LACTOBACILLUS ACIDOPHILUS 1 TABLET PO SCH (09:39)
[2020-05-14] MEDS: LORATADINE 10 MG TABLET PO SCH (09:39)
[2020-05-14] MEDS: MULTIVITAMINS (DAILY MVI) TABLET (FP) PO SCH (09:39)
[2020-05-14] MEDS: POTASSIUM CHLORIDE TABS 20 MEQ TABLET.ER (FP) PO SCH (09:39)
[2020-05-14] MEDS: FOLIC ACID 1 MG TABLET (FP) PO SCH (09:39)
[2020-05-14] MEDS: CALCIUM 500MG/VIT-D 200 UNITS COMBO TABLET (FP) PO SCH (09:39)
[2020-05-14] MEDS: LOSARTAN POTASSIUM 50 MG TABLET (FP) PO SCH (09:40)
[2020-05-14] MEDS: BUDESONIDE/FORMETEROL FUMARATE 160/4.5 mcg INHALER IH SCH ×2 (09:40→22:38)
--- NOTE | 2020-05-14 14:05 | PN ---
Progress Note, Physician History of Present Illness: stable cx results noted no dirrhoea await for identification of the bacteria - Current Medication List Current Medications: Active Medications Acetaminophen (Tylenol -) 650 mg PO Q6H PRN PRN Reason: PAIN LEVEL 6-10 Last Admin: 05/13/20 21:10 Dose: 650 mg Documented by: Atorvastatin Calcium (Lipitor -) 80 mg PO [facility] Last Admin: 05/13/20 21:21 Dose: Not Given Documented by: Budesonide/Formoterol Fumarate (Symbicort 160/4.5mcg -) 2 puff IH BID [facility] Last Admin: 05/14/20 09:40 Dose: 2 puff Documented by: Calcium Carbonate/Cholecalciferol (Os-Altaf 500+D -) 1 tab PO DAILY [facility] Last Admin: 05/14/20 09:39 Dose: 1 tab Documented by: Cholecalciferol (Vitamin D3 Oral Solution -) 600 unit PO BID [facility] Last Admin: 05/13/20 22:03 Dose: 600 unit Documented by: Citalopram Hydrobromide (Celexa -) 40 mg PO [facility] Last Admin: 05/13/20 21:11 Dose: 40 mg Documented by: Ezetimibe (Zetia -) 10 mg PO [facility] Last Admin: 05/13/20 21:11 Dose: 10 mg Documented by: Folic Acid (Folic Acid -) 1 mg PO DAILY [facility] Last Admin: 05/14/20 09:39 Dose: 1 mg Documented by: Gabapentin (Neurontin -) 1,200 mg PO [facility] Last Admin: 05/13/20 21:11 Dose: 1,200 mg Documented by: Ceftriaxone Sodium 2 gm/ (Dextrose) 100 mls @ 100 mls/hr IVPB DAILY [facility]; Protocol Last Admin: 05/14/20 09:38 Dose: 100 mls/hr Documented by: Lactobacillus Acidophilus (Bacid -) 1 tab PO DAILY [facility] Last Admin: 05/14/20 09:39 Dose: 1 tab Documented by: Loratadine (Claritin -) 10 mg PO DAILY [facility] Last Admin: 05/14/20 09:39 Dose: 10 mg Documented by: Losartan Potassium (Cozaar -) 50 mg PO DAILY [facility] Last Admin: 05/14/20 09:40 Dose: 50 mg Documented by: Montelukast Sodium (Singulair -) 10 mg PO [facility] Last Admin: 05/13/20 21:12 Dose: 10 mg Documented by: Multivitamins/Minerals/Vitamin C (Tab-A-Vit -) 1 tab PO DAILY [facility] Last Admin: 05/14/20 09:39 Dose: 1 tab Documented by: Pantoprazole Sodium (Protonix -) 40 mg PO Q12H [facility] Last Admin: 05/14/20 06:06 Dose: 40 mg Documented by: Potassium Chloride (K-Dur -) 20 meq PO DAILY [facility] Last Admin: 05/14/20 09:39 Dose: 20 meq Documented by: Rivaroxaban (Xarelto) 20 mg PO DAILY@1800 [facility] Last Admin: 05/13/20 17:20 Dose: 20 mg Documented by: Solifenacin (Vesicare -) 5 mg PO DAILY@1500 [facility] Last Admin: 05/13/20 17:20 Dose: 5 mg Documented by: - Objective Vital Signs: Vital Signs Temperature 97.7 F 05/14/20 09:00 Pulse Rate 54 L 05/14/20 09:00 Respiratory Rate 18 05/14/20 09:00 Blood Pressure 132/74 05/14/20 09:00 O2 Sat by Pulse Oximetry (%) 98 05/14/20 09:00 Constitutional: Yes: No Distress, Calm Cardiovascular: Yes: S1, S2 Respiratory: Yes: Regular, CTA Bilaterally Gastrointestinal: Yes: Normal Bowel Sounds, Soft Musculoskeletal: Yes: WNL Extremities: Yes: WNL Neurological: Yes: Alert, Oriented Psychiatric: Yes: Alert, Oriented Labs: CBC, BMP 05/14/20 06:13 05/14/20 06:13 INR, PTT INR 1.05 (0.83-1.09) 05/11/20 18:50 Assessment/Plan 60 y.o. F w/ PMHx. of Factor V Leiden deficiency, DVT, PE (2016- on Xarelto), chronic LE swelling, HTN, HLD, GERD, hiatal hernia, asthma, morbid obesity, vertigo, and recent admission for non-radiating burning chest pain/pressure (04/28/20) presented with dizziness, high home BP of 195/90, 2 weeks of light- yellow diarrhea, and 3-4 days of clear liquid vomiting and was admitted for r/o ACS. chest pain vomiting dirrhoea factor v leiden colitis plan cx results noted will stop ceftriaxone tomorrow await for identification of the bacteria
[2020-05-14] MEDS ORDERED: PT OWN MED DRAWER 7, Y5N ONE (15:00)
[2020-05-14] MEDS: SOLIFENACIN SUCCINATE 5 MG TAB PO SCH (15:02)
[2020-05-14] MEDS: CHOLECALCIFEROL (VIT D SOLUTION) 400 UNIT/1 ML DROPS PO SCH ×2 (15:02→22:37)
--- NOTE | 2020-05-14 15:43 | DS ---
Physical Exam: SUBJECTIVE: Patient seen and examined. Pt. endorses that diarrhea has improved. Pt. denies any new pains. OBJECTIVE: Vital Signs Period Temp Pulse Resp BP Sys/Henley Pulse Ox Last 24 Hr 97.7 F-98.6 F 50-58 18-20 116-136/42-77 96-98 PHYSICAL EXAM GENERAL: The patient is awake, alert, and fully oriented, in no acute distress. HEAD: Normal with no signs of trauma. EYES: Sclera anicteric, conjunctiva clear. ENT: Dry mucous membranes. NECK: Trachea midline, full range of motion, supple. LUNGS: Breath sounds equal, clear to auscultation bilaterally anteriorly, no wheezes, no crackles, no accessory muscle use. HEART: Regular rate and rhythm, S1, S2 without murmur, rub or gallop. ABDOMEN: Soft, morbidly obese, diffuse tenderness? to palpation in lower abdomen, nondistended, normoactive bowel sounds, no guarding, no rebound EXTREMITIES: 2+ dorsal pedal pulses, warm, well-perfused, no edema. NEUROLOGICAL: Normal speech, gait not observed. PSYCH: Normal mood, normal affect. SKIN: Warm, dry LABS Laboratory Results - last 24 hr 05/13/20 05/14/20 05/14/20 22:06 05:52 06:13 WBC 6.1 RBC 4.74 Hgb 12.9 Hct 38.4 MCV 80.9 MCH 27.2 MCHC 33.6 RDW 14.1 Plt Count 156 MPV 10.0 Absolute Neuts (auto) 3.2 Neutrophils % 52.1 Lymphocytes % 33.1 D Monocytes % 8.0 Eosinophils % 5.5 H Basophils % 1.3 Nucleated RBC % 0 Sodium Potassium Chloride Carbon Dioxide Anion Gap BUN Creatinine Est GFR (CKD-EPI)AfAm Est GFR (CKD-EPI)NonAf POC Glucometer 103 95 Random Glucose Calcium Magnesium Total Bilirubin AST ALT Alkaline Phosphatase Total Protein Albumin 05/14/20 06:13 WBC RBC Hgb Hct MCV MCH MCHC RDW Plt Count MPV Absolute Neuts (auto) Neutrophils % Lymphocytes % Monocytes % Eosinophils % Basophils % Nucleated RBC % Sodium 141 Potassium 3.9 Chloride 106 Carbon Dioxide 26 Anion Gap 9 BUN 13.1 Creatinine 1.0 Est GFR (CKD-EPI)AfAm 70.91 Est GFR (CKD-EPI)NonAf 61.19 POC Glucometer Random Glucose 101 Calcium 8.4 L Magnesium 1.7 L Total Bilirubin 0.6 AST 24 ALT 38 Alkaline Phosphatase 62 Total Protein 6.4 Albumin 3.4 HOSPITAL COURSE: Date of Admission:05/12/20 Date of Discharge: 05/14/20 Pt. is a 60 yo female with a PMHx of Leiden V on xalreto, DVT, PE in 2016, chronic LE swelling, HTN, HLD, GERD, hiatal hernia, asthma, morbid obesity, and vertigo presented to the ED with dizziness, high home BP of 195/90, light-yellow diarrhea, clear liquid vomiting, alternating hot/cold spells, generalized abdominal pain, PEÑA, dysuria with dark cloudy urine, and a burning and intermittent CP. Labs showed a troponin of < 0.02 and a total Bili of 1.2. CXR was unremarkable. Head CT showed no acute intracranial pathology. EKG showed NSR with first degree AV block, old RBBB, and QTc 480. Stool salmonella/shigella culture was positive for Staph Latex Coag, however it is a presumed contaminant. CT abdomen/pelvis showed hepatomegaly with diffuse fatty infiltration of the liver, no other acute pathology. CP likely secondary to GERD, continued on home PPI. Cardiology consultation suggested stress test when pt is more stable with a cardiology f/u as outpatient(Last MIBI stress test in 2018 and echo were unremarkable). Medicine adjustment and hospital follow-up is noted below. Pt is medically stabilized and discharged home to follow up with PCP as outpatient for further evaluation. Minutes to complete discharge: 35 Discharge Summary Problems reviewed: Yes Reason For Visit: DIARRHEA,HEADACHE,VERTIGO,CHEST PAIN,VOMITING Current Active Problems Chest pain (Acute) Diarrhea (Acute) Emesis (Acute) Vertigo (Acute) Condition: Guarded - Instructions Diet, Activity, Other Instructions: You came in for nausea, vomiting and diarrhea. We started you on antibiotics for a a urinary tract infection. We imaged your abdomen and did not find anything immediately wrong. we did notice that you have a fatty liver. You were seen by a product mgmt dev manager, an infectious disease specialist and highway maintenance worker. We monitored you on telemetry and did not find anything immediately concerning. We believe te chest discomfort maybe related to GERD. We did revied the EGD you had performed last year. We believe the diarrhea happened because you were on antibiotics and and were not taking them appropriately. You diarrhea resolved on its own after we switched your diet to more solid foods. We have low suspicion for C.Diff or an gastrointestinal infection. Please take Macrobid 100mg EVERY 12 hours for the next 7 days. Please take Bacid ONCE a day for the next 2 weeks. This is to help prevent more diarrhea. Please continue your home medications as prescribed. Please follow up with your PCP within 1 week. Please discuss de-escalating some of your medications that you no longer require. Please follow up with your product mgmt dev manager within 1 week. We have provided Dr. Mendoza for you. You need to have another "MIBI Stress test." Your last one 2 years ago was normal. Please return to the ED if you are having any concerning symptoms. Referrals: Julia Cerda [Primary Care Provider] - 1 Week Usman Mendoza MD [Staff Physician] - 1 Week ON STAFF,NOT [Non Staff, Medical] - 1 Week Disposition: HOME - Home Medications Comprehensive Discharge Medication List: Ambulatory Orders Calcium Carb/Vitamin D3/Vit K1 [Calcium + D Soft Chewable Tab] 1 each PO DAILY 07/29/14 Cetirizine HCl [Zyrtec -] 10 mg PO DAILY 07/29/14 Cholecalciferol (Vitamin D3) [Vitamin D3] 600 unit PO BID 07/29/14 Citalopram Hydrobromide [Celexa -] 40 mg PO HS 07/29/14 Esomeprazole Mag Trihydrate [Nexium] 40 mg PO BID 07/29/14 Fluticasone/Salmeterol [Advair Hfa 230-21 Mcg Inhaler] 2 inh PO BID 07/29/14 Folic Acid - 1 mg PO DAILY 07/29/14 Gabapentin [Neurontin] 1,200 mg PO HS 07/29/14 Gabapentin [Neurontin] 300 mg PO TID PRN 07/29/14 Montelukast Na [Singulair -] 10 mg PO HS 07/29/14 Multivitamins [Multivit ([facility] Formulary)] 1 tab PO DAILY 07/29/14 Simvastatin [Zocor -] 40 mg PO HS 07/29/14 Meclizine HCl [Antivert -] 12.5 mg PO TID PRN 07/01/16 Rivaroxaban [Xarelto -] 20 mg PO DAILY 07/01/16 Ezetimibe [Zetia -] 10 mg PO DAILY 04/28/20 Furosemide [Lasix -] 20 mg PO DAILY 04/28/20 Losartan Potassium 100 mg PO DAILY 04/28/20 Oxybutynin Chloride [Oxybutynin Chloride ER] 10 mg PO DAILY 05/11/20 Potassium Chloride [Klor-Con M20] 20 meq PO DAILY 05/11/20 Lactobacillus Acidophilus [Bacid -] 1 tab PO DAILY #14 tab 05/14/20 Nitrofurantoin Monohyd/M-Cryst [Macrobid -] 100 mg PO BID #14 capsule 05/14/20 This patient is new to me today: No Emergency Visit: Yes ED Registration Date: 05/12/20 Care time: The patient presented to the Emergency Department on the above date and was hospitalized for further evaluation of their emergent condition. Critical Care patient: No - Discharge Referral Referred to [facility] Med P.C.: No ATTENDING PHYSICIAN STATEMENT I saw and evaluated the patient. I reviewed the resident's note and discussed the case with the resident. I agree with the resident's findings and plan as documented. SUBJECTIVE: OBJECTIVE: ASSESSMENT AND PLAN:
[2020-05-14] MEDS: RIVAROXABAN 20 MG TABLET PO SCH (17:17)
--- NOTE | 2020-05-14 17:18 | PN ---
Teaching Attending Note Name of Resident: Yury England ATTENDING PHYSICIAN STATEMENT I saw and evaluated the patient. I reviewed the resident's note and discussed the case with the resident. I agree with the resident's findings and plan as documented. SUBJECTIVE: Patient seen and examined at bedside, endorses diarrhea resolved but still "not ready" to go home. VSS. OBJECTIVE: GENERAL: The patient is awake, alert, and fully oriented, in no acute distress. HEAD: Normal with no signs of trauma. EYES: Sclera anicteric, conjunctiva clear. ENT: Dry mucous membranes. NECK: Trachea midline, full range of motion, supple. LUNGS: Breath sounds equal, clear to auscultation bilaterally anteriorly, no wheezes, no crackles, no accessory muscle use. HEART: Regular rate and rhythm, S1, S2 without murmur, rub or gallop. ABDOMEN: Soft, morbidly obese, diffuse tenderness? to palpation in lower abdomen, nondistended, normoactive bowel sounds, no guarding, no rebound EXTREMITIES: 2+ dorsal pedal pulses, warm, well-perfused, no edema. NEUROLOGICAL: Normal speech, gait not observed. PSYCH: Normal mood, normal affect. SKIN: Warm, dry Vital Signs (72 hours) 05/11/20 05/12/20 05/12/20 19:41 02:34 06:25 Temperature 98.4 F Pulse Rate Pulse Rate [ 66 Apical] Pulse Rate [ 65 62 Right Radial] Respiratory 16 20 18 Rate Blood Pressure Blood Pressure 157/56 L 165/87 165/67 [Left Arm] O2 Sat by Pulse 99 97 98 Oximetry (%) 05/12/20 05/12/20 05/12/20 07:51 07:56 09:30 Temperature 98.7 F 98.2 F Pulse Rate 63 Pulse Rate [ Apical] Pulse Rate [ 60 Right Radial] Respiratory 20 20 Rate Blood Pressure 158/74 Blood Pressure 138/83 [Left Arm] O2 Sat by Pulse 98 98 Oximetry (%) 05/12/20 05/12/20 05/12/20 14:15 18:10 20:18 Temperature 98 F 98.1 F 98.8 F Pulse Rate 59 L 52 L 59 L Pulse Rate [ Apical] Pulse Rate [ Right Radial] Respiratory 20 20 18 Rate Blood Pressure 136/58 L 122/58 L 122/93 Blood Pressure [Left Arm] O2 Sat by Pulse 99 97 Oximetry (%) 05/12/20 05/13/20 05/13/20 21:00 01:01 05:25 Temperature 98 F 98.8 F Pulse Rate 51 L 52 L Pulse Rate [ Apical] Pulse Rate [ Right Radial] Respiratory 18 18 Rate Blood Pressure 114/58 L 132/73 Blood Pressure [Left Arm] O2 Sat by Pulse 97 98 Oximetry (%) 05/13/20 05/13/20 05/13/20 09:00 14:14 18:00 Temperature 98.6 F 98.3 F 98.6 F Pulse Rate 53 L 54 L 56 L Pulse Rate [ Apical] Pulse Rate [ Right Radial] Respiratory 18 18 20 Rate Blood Pressure 101/56 L 112/72 116/42 L Blood Pressure [Left Arm] O2 Sat by Pulse 94 L Oximetry (%) 05/13/20 05/13/20 05/14/20 19:39 21:00 01:16 Temperature 98.2 F 97.8 F Pulse Rate 58 L 50 L Pulse Rate [ Apical] Pulse Rate [ Right Radial] Respiratory 18 20 Rate Blood Pressure 136/77 117/50 L Blood Pressure [Left Arm] O2 Sat by Pulse 98 98 Oximetry (%) 05/14/20 05/14/20 05/14/20 05:24 09:00 14:05 Temperature 98.5 F 97.7 F 97.7 F Pulse Rate 53 L 54 L 56 L Pulse Rate [ Apical] Pulse Rate [ Right Radial] Respiratory 18 18 18 Rate Blood Pressure 123/60 132/74 130/50 L Blood Pressure [Left Arm] O2 Sat by Pulse 96 98 Oximetry (%) Laboratory Tests 05/11/20 05/11/20 05/11/20 18:50 18:50 18:50 WBC 8.3 RBC 5.43 H Hgb 14.8 Hct 44.1 MCV 81.2 MCH 27.2 MCHC 33.5 RDW 13.8 Plt Count 201 D MPV 9.9 Absolute Neuts (auto) 6.2 Neutrophils % 74.8 Lymphocytes % 19.3 Monocytes % 4.7 Eosinophils % 0.5 Basophils % 0.7 Nucleated RBC % 0 PT with INR 12.40 INR 1.05 PTT (Actin FS) 31.2 Sodium 140 Potassium 3.9 Chloride 104 Carbon Dioxide 23 Anion Gap 13 BUN 15.7 Creatinine 1.1 Est GFR (CKD-EPI)AfAm 63.20 Est GFR (CKD-EPI)NonAf 54.53 POC Glucometer Random Glucose 100 Calcium 9.7 Phosphorus Magnesium 1.9 Total Bilirubin 1.2 H AST 39 H ALT 55 Alkaline Phosphatase 76 Creatine Kinase 78 Troponin I < 0.02 Total Protein 7.8 Albumin 4.0 Urine Color Urine Appearance Urine pH Ur Specific [place] Urine Protein Urine Glucose (UA) Urine Ketones Urine Blood Urine Nitrite Urine Bilirubin Urine Urobilinogen Ur Leukocyte Esterase COVID-19 (JONATHAN) 05/12/20 05/12/20 05/12/20 00:00 05:20 05:20 WBC 8.1 RBC 4.94 Hgb 13.4 Hct 39.3 MCV 79.6 L MCH 27.2 MCHC 34.1 RDW 13.9 Plt Count 190 MPV 9.8 Absolute Neuts (auto) 6.1 Neutrophils % 75.2 Lymphocytes % 17.5 Monocytes % 6.1 Eosinophils % 0.6 Basophils % 0.6 Nucleated RBC % 0 PT with INR INR PTT (Actin FS) Sodium 139 Potassium 3.8 Chloride 104 Carbon Dioxide 23 Anion Gap 12 BUN 16.0 Creatinine 0.8 Est GFR (CKD-EPI)AfAm 92.87 Est GFR (CKD-EPI)NonAf 80.13 POC Glucometer Random Glucose 112 H Calcium 9.0 Phosphorus 3.8 Magnesium 1.8 Total Bilirubin 1.1 H AST 30 ALT 45 Alkaline Phosphatase 66 Creatine Kinase Troponin I < 0.02 Total Protein 6.9 Albumin 3.6 Urine Color Urine Appearance Urine pH Ur Specific [place] Urine Protein Urine Glucose (UA) Urine Ketones Urine Blood Urine Nitrite Urine Bilirubin Urine Urobilinogen Ur Leukocyte Esterase COVID-19 (JONATHAN) Not detected 05/12/20 05/12/20 05/12/20 11:36 13:30 16:35 WBC RBC Hgb Hct MCV MCH MCHC RDW Plt Count MPV Absolute Neuts (auto) Neutrophils % Lymphocytes % Monocytes % Eosinophils % Basophils % Nucleated RBC % PT with INR INR PTT (Actin FS) Sodium Potassium Chloride Carbon Dioxide Anion Gap BUN Creatinine Est GFR (CKD-EPI)AfAm Est GFR (CKD-EPI)NonAf POC Glucometer 118 118 Random Glucose Calcium Phosphorus Magnesium Total Bilirubin AST ALT Alkaline Phosphatase Creatine Kinase Troponin I Total Protein Albumin Urine Color Yellow Urine Appearance Clear Urine pH 6.5 Ur Specific [place] 1.016 Urine Protein Negative Urine Glucose (UA) Negative Urine Ketones Negative Urine Blood Negative Urine Nitrite Negative Urine Bilirubin Negative Urine Urobilinogen 1.0 Ur Leukocyte Esterase Negative COVID-19 (JONATHAN) 05/12/20 05/13/20 05/13/20 22:58 05:46 07:08 WBC 5.2 RBC 5.10 Hgb 13.8 Hct 41.1 MCV 80.7 MCH 27.0 MCHC 33.5 RDW 14.4 Plt Count 162 MPV 9.9 Absolute Neuts (auto) 3.1 Neutrophils % 59.2 D Lymphocytes % 27.1 D Monocytes % 8.2 Eosinophils % 4.6 H D Basophils % 0.9 Nucleated RBC % 0 PT with INR INR PTT (Actin FS) Sodium Potassium Chloride Carbon Dioxide Anion Gap BUN Creatinine Est GFR (CKD-EPI)AfAm Est GFR (CKD-EPI)NonAf POC Glucometer 115 85 Random Glucose Calcium Phosphorus Magnesium Total Bilirubin AST ALT Alkaline Phosphatase Creatine Kinase Troponin I Total Protein Albumin Urine Color Urine Appearance Urine pH Ur Specific [place] Urine Protein Urine Glucose (UA) Urine Ketones Urine Blood Urine Nitrite Urine Bilirubin Urine Urobilinogen Ur Leukocyte Esterase COVID-19 (JONATHAN) 05/13/20 05/13/20 05/13/20 07:08 11:08 22:06 WBC RBC Hgb Hct MCV MCH MCHC RDW Plt Count MPV Absolute Neuts (auto) Neutrophils % Lymphocytes % Monocytes % Eosinophils % Basophils % Nucleated RBC % PT with INR INR PTT (Actin FS) Sodium 141 Potassium 3.2 L Chloride 104 Carbon Dioxide 25 Anion Gap 12 BUN 14.0 Creatinine 1.1 Est GFR (CKD-EPI)AfAm 63.20 Est GFR (CKD-EPI)NonAf 54.53 POC Glucometer 163 103 Random Glucose 114 H Calcium 8.9 Phosphorus Magnesium 1.7 L Total Bilirubin 1.4 H AST 37 ALT 44 Alkaline Phosphatase 64 Creatine Kinase Troponin I Total Protein 6.9 Albumin 3.6 Urine Color Urine Appearance Urine pH Ur Specific [place] Urine Protein Urine Glucose (UA) Urine Ketones Urine Blood Urine Nitrite Urine Bilirubin Urine Urobilinogen Ur Leukocyte Esterase COVID-19 (JONATHAN) 05/14/20 05/14/20 05/14/20 05:52 06:13 06:13 WBC 6.1 RBC 4.74 Hgb 12.9 Hct 38.4 MCV 80.9 MCH 27.2 MCHC 33.6 RDW 14.1 Plt Count 156 MPV 10.0 Absolute Neuts (auto) 3.2 Neutrophils % 52.1 Lymphocytes % 33.1 D Monocytes % 8.0 Eosinophils % 5.5 H Basophils % 1.3 Nucleated RBC % 0 PT with INR INR PTT (Actin FS) Sodium 141 Potassium 3.9 Chloride 106 Carbon Dioxide 26 Anion Gap 9 BUN 13.1 Creatinine 1.0 Est GFR (CKD-EPI)AfAm 70.91 Est GFR (CKD-EPI)NonAf 61.19 POC Glucometer 95 Random Glucose 101 Calcium 8.4 L Phosphorus Magnesium 1.7 L Total Bilirubin 0.6 AST 24 ALT 38 Alkaline Phosphatase 62 Creatine Kinase Troponin I Total Protein 6.4 Albumin 3.4 Urine Color Urine Appearance Urine pH Ur Specific [place] Urine Protein Urine Glucose (UA) Urine Ketones Urine Blood Urine Nitrite Urine Bilirubin Urine Urobilinogen Ur Leukocyte Esterase COVID-19 (JONATHAN) Home Medications Medication Instructions Recorded Calcium Carb/Vitamin D3/Vit K1 1 each PO DAILY 07/29/14 [Calcium + D Soft Chewable Tab] Cetirizine HCl [Zyrtec -] 10 mg PO DAILY 07/29/14 Cholecalciferol (Vitamin D3) 600 unit PO BID 07/29/14 [Vitamin D3] Citalopram Hydrobromide [Celexa -] 40 mg PO HS 07/29/14 Esomeprazole Mag Trihydrate 40 mg PO BID 07/29/14 [Nexium] Fluticasone/Salmeterol [Advair Hfa 2 inh PO BID 07/29/14 230-21 Mcg Inhaler] Folic Acid - 1 mg PO DAILY 07/29/14 Gabapentin [Neurontin] 1,200 mg PO HS 07/29/14 Gabapentin [Neurontin] 300 mg PO TID PRN 07/29/14 Montelukast Na [Singulair -] 10 mg PO HS 07/29/14 Multivitamins [Multivit ([facility] 1 tab PO DAILY 07/29/14 Formulary)] Simvastatin [Zocor -] 40 mg PO HS 07/29/14 Meclizine HCl [Antivert -] 12.5 mg PO TID PRN 07/01/16 Rivaroxaban [Xarelto -] 20 mg PO DAILY 07/01/16 Ezetimibe [Zetia -] 10 mg PO DAILY 04/28/20 Furosemide [Lasix -] 20 mg PO DAILY 04/28/20 Losartan Potassium 100 mg PO DAILY 04/28/20 Oxybutynin Chloride [Oxybutynin 10 mg PO DAILY 05/11/20 Chloride ER] Potassium Chloride [Klor-Con M20] 20 meq PO DAILY 05/11/20 Lactobacillus Acidophilus [Bacid -] 1 tab PO DAILY #14 tab 05/14/20 Nitrofurantoin Monohyd/M-Cryst 100 mg PO BID #14 capsule 05/14/20 [Macrobid -] Current Medications Generic Name Dose Route Start Last Admin Trade Name Freq PRN Reason Stop Dose Admin Acetaminophen 650 mg 05/12/20 16:03 05/13/20 21:10 Tylenol - PO 650 mg Q6H PRN Administration PAIN LEVEL 6-10 Atorvastatin Calcium 80 mg 05/12/20 22:00 05/13/20 21:21 Lipitor - PO Not Given HS STORM Budesonide/Formoterol Fumarate 2 puff 05/12/20 10:00 05/14/20 09:40 Symbicort 160/4.5mcg - IH 2 puff BID [facility] Administration Calcium Carbonate/Cholecalciferol 1 tab 05/12/20 10:00 05/14/20 09:39 Os-Altaf 500+D - PO 1 tab DAILY [facility] Administration Cholecalciferol 600 unit 05/12/20 10:00 05/14/20 15:02 Vitamin D3 Oral Solution - PO 600 unit BID STORM Administration Citalopram Hydrobromide 40 mg 05/12/20 22:00 05/13/20 21:11 Celexa - PO 40 mg HS STORM Administration Ezetimibe 10 mg 05/12/20 22:00 05/13/20 21:11 Zetia - PO 10 mg HS STORM Administration Folic Acid 1 mg 05/12/20 10:00 05/14/20 09:39 Folic Acid - PO 1 mg DAILY [facility] Administration Gabapentin 1,200 mg 05/12/20 22:00 05/13/20 21:11 Neurontin - PO 1,200 mg HS [facility]ORM Administration Ceftriaxone Sodium 2 gm/ 100 mls @ 100 mls/hr 05/12/20 16:00 05/14/20 09:38 Dextrose IVPB 100 mls/hr DAILY [facility] Administration Protocol Lactobacillus Acidophilus 1 tab 05/13/20 10:30 05/14/20 09:39 Bacid - PO 1 tab DAILY [facility] Administration Loratadine 10 mg 05/12/20 10:00 05/14/20 09:39 Claritin - PO 10 mg DAILY [facility] Administration Losartan Potassium 50 mg 05/13/20 10:22 05/14/20 09:40 Cozaar - PO 50 mg DAILY [facility] Administration Montelukast Sodium 10 mg 05/12/20 22:00 05/13/20 21:12 Singulair - PO 10 mg HS [facility] Administration Multivitamins/Minerals/Vitamin C 1 tab 05/12/20 10:00 05/14/20 09:39 Tab-A-Vit - PO 1 tab DAILY [facility] Administration Pantoprazole Sodium 40 mg 05/12/20 07:00 05/14/20 06:06 Protonix - PO 40 mg Q12H [facility] Administration Potassium Chloride 20 meq 05/12/20 10:00 05/14/20 09:39 K-Dur - PO 20 meq DAILY [facility] Administration Rivaroxaban 20 mg 05/12/20 18:00 05/13/20 17:20 Xarelto PO 20 mg DAILY@1800 [facility] Administration Solifenacin 5 mg 05/13/20 15:00 05/14/20 15:02 Vesicare - PO 5 mg DAILY@1500 [facility] Administration ASSESSMENT AND PLAN: 60 F Functional diarrhea Vertigo UTI ACS ruled out HFpEF HLD DM morbid obesity Suspected ELISA Factor V Leiden def on AC Hypokalemia DM neuropathy Depression Plan: COnt. Ceftriaxone for UTI Diarrhea now resolving, likely functional/ diet related Trial of probiotics Cont. Xarelto for AC Cardiology following ID following DVT ppx: Xarelto
--- NOTE | 2020-05-14 21:32 | PN ---
Progress Note, Physician Chief Complaint: Pt A&Ox3; no chest pain or dypsnea presently; diarrhea has subside, but still has quesy stomach. 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 She states she has vertigo and has been taking more meclizine than usual for it. Today, she felt vertigo so bad that she though she would pass out, so she called 911. She describes it as having her head in a box and it spinning round and round. She also complains of 2 weeks of watery diarrhea 6-7 times per day; 4 days of NBNB emesis 4-5 times per day; intermittent burning chest pain/tightness for 2 weeks that is worse with change in position, not exertional, not relieved by rest, not worse with deep inspiration; left sided headache different from her usual headache without phono/photophobia; elevated BP this morning to 195. She also states she was recently treated for a UTI but did not finish the course of Macrobid. She came to the ER two weeks prior with similar vertigo symptoms and chest pain. Pt says she had a stress MIBI 2 years ago that was negative for ischemia. 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 - Current Medication List Current Medications: Active Medications Acetaminophen (Tylenol -) 650 mg PO Q6H PRN PRN Reason: PAIN LEVEL 6-10 Last Admin: 05/13/20 21:10 Dose: 650 mg Documented by: Atorvastatin Calcium (Lipitor -) 80 mg PO HS [facility] Last Admin: 05/13/20 21:21 Dose: Not Given Documented by: Budesonide/Formoterol Fumarate (Symbicort 160/4.5mcg -) 2 puff IH BID [facility] Last Admin: 05/14/20 09:40 Dose: 2 puff Documented by: Calcium Carbonate/Cholecalciferol (Os-Altaf 500+D -) 1 tab PO DAILY [facility] Last Admin: 05/14/20 09:39 Dose: 1 tab Documented by: Cholecalciferol (Vitamin D3 Oral Solution -) 600 unit PO BID [facility] Last Admin: 05/14/20 15:02 Dose: 600 unit Documented by: Citalopram Hydrobromide (Celexa -) 40 mg PO [facility] Last Admin: 05/13/20 21:11 Dose: 40 mg Documented by: Ezetimibe (Zetia -) 10 mg PO [facility] Last Admin: 05/13/20 21:11 Dose: 10 mg Documented by: Folic Acid (Folic Acid -) 1 mg PO DAILY [facility] Last Admin: 05/14/20 09:39 Dose: 1 mg Documented by: Gabapentin (Neurontin -) 1,200 mg PO [facility] Last Admin: 05/13/20 21:11 Dose: 1,200 mg Documented by: Ceftriaxone Sodium 2 gm/ (Dextrose) 100 mls @ 100 mls/hr IVPB DAILY [facility]; Protocol Last Admin: 05/14/20 09:38 Dose: 100 mls/hr Documented by: Lactobacillus Acidophilus (Bacid -) 1 tab PO DAILY [facility] Last Admin: 05/14/20 09:39 Dose: 1 tab Documented by: Loratadine (Claritin -) 10 mg PO DAILY [facility] Last Admin: 05/14/20 09:39 Dose: 10 mg Documented by: Losartan Potassium (Cozaar -) 50 mg PO DAILY [facility] Last Admin: 05/14/20 09:40 Dose: 50 mg Documented by: Montelukast Sodium (Singulair -) 10 mg PO [facility] Last Admin: 05/13/20 21:12 Dose: 10 mg Documented by: Multivitamins/Minerals/Vitamin C (Tab-A-Vit -) 1 tab PO DAILY [facility] Last Admin: 05/14/20 09:39 Dose: 1 tab Documented by: Pantoprazole Sodium (Protonix -) 40 mg PO Q12H [facility] Last Admin: 05/14/20 18:47 Dose: Not Given Documented by: Potassium Chloride (K-Dur -) 20 meq PO DAILY [facility] Last Admin: 05/14/20 09:39 Dose: 20 meq Documented by: Rivaroxaban (Xarelto) 20 mg PO DAILY@1800 [facility] Last Admin: 05/14/20 17:17 Dose: 20 mg Documented by: Solifenacin (Vesicare -) 5 mg PO DAILY@1500 [facility] Last Admin: 05/14/20 15:02 Dose: 5 mg Documented by: - Objective Vital Signs: Vital Signs Temperature 98.3 F 05/14/20 18:01 Pulse Rate 59 L 05/14/20 18:01 Respiratory Rate 18 05/14/20 18:01 Blood Pressure 117/71 05/14/20 18:01 O2 Sat by Pulse Oximetry (%) 98 05/14/20 09:00 Constitutional: Yes: Calm, Obese Cardiovascular: Yes: S1, S2 (split) Labs: CBC, BMP 05/14/20 06:13 05/14/20 06:13 INR, PTT INR 1.05 (0.83-1.09) 05/11/20 18:50 Assessment/Plan Vertigo Diarrhea; hypomagnesemia UTI Burning chest pain; 2 prior ER visits in the past month for similar symptoms (the first after having nasal sinus surgery); TNI consistently < 0.02 Multiple CAD risks diastolic CHF HTN HLD DM morbid obesity ?sleep apnea TNI < 0.02 Plan: NPO after midnight; consider stress MIBI if diarrhea has resolved. (Pt says she had pharmacologic stress MIBI 2 years ago, and had "reaction" to agent--?dobutamine, as pt has 10-years hx of "asthma"--but completed the test over 2 days. She plans to get details of that test early tomorrow morning). Replete magnesium. COVID negative BNP 430; CXR clear; no JVP antibiotics per ID Avoid dehydration On atorvastatin + Zetia for elevated LDL. On losartan + furosemide (she had been on Cardura, but would not continue this medication due to increased risk of CHF); f/u BP serially F/u BUN/Cr and electrolytes. Is and Os, daily weight. Dietary consult (pt requests help with weight/DM). sleep studies to r/o sleep apnea
[2020-05-14] MEDS: EZETIMIBE 10 MG TABLET (FP) PO SCH (22:34)
[2020-05-14] MEDS: GABAPENTIN 400 MG CAPSULE PO SCH (22:35)
[2020-05-14] MEDS: MONTELUKAST NA 10 MG TABLET PO SCH (22:35)
[2020-05-14] MEDS: CITALOPRAM HYDROBROMIDE 20 MG TABLET PO SCH (22:36)
[2020-05-14] MEDS: ATORVASTATIN CA 80 MG TABLET (FP) PO SCH (22:36)
[2020-05-14] MEDS: ACETAMINOPHEN 325 MG TABLET (FP) PO PRN (22:50)
--- NOTE | 2020-05-15 08:17 | PN ---
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 She states she has vertigo and has been taking more meclizine than usual for it. Today, she felt vertigo so bad that she though she would pass out, so she called 911. She describes it as having her head in a box and it spinning round and round. She also complains of 2 weeks of watery diarrhea 6-7 times per day; 4 days of NBNB emesis 4-5 times per day; intermittent burning chest pain/tightness for 2 weeks that is worse with change in position, not exertional, not relieved by rest, not worse with deep inspiration; left sided headache different from her usual headache without phono/photophobia; elevated BP this morning to 195. She also states she was recently treated for a UTI but did not finish the course of Macrobid. She came to the ER two weeks prior with similar vertigo symptoms and chest pain. Pt says she had a stress MIBI 2 years ago that was negative for ischemia. 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 - Current Medication List Current Medications: Active Medications Acetaminophen (Tylenol -) 650 mg PO Q6H PRN PRN Reason: PAIN LEVEL 6-10 Last Admin: 05/14/20 22:50 Dose: 650 mg Documented by: Atorvastatin Calcium (Lipitor -) 80 mg PO HS [facility] Last Admin: 05/14/20 22:36 Dose: 80 mg Documented by: Budesonide/Formoterol Fumarate (Symbicort 160/4.5mcg -) 2 puff IH BID [facility] Last Admin: 05/14/20 22:38 Dose: 2 puff Documented by: Calcium Carbonate/Cholecalciferol (Os-Altaf 500+D -) 1 tab PO DAILY [facility] Last Admin: 05/14/20 09:39 Dose: 1 tab Documented by: Cholecalciferol (Vitamin D3 Oral Solution -) 600 unit PO BID [facility] Last Admin: 05/14/20 22:37 Dose: 600 unit Documented by: Citalopram Hydrobromide (Celexa -) 40 mg PO [facility] Last Admin: 05/14/20 22:36 Dose: 40 mg Documented by: Ezetimibe (Zetia -) 10 mg PO HS [facility] Last Admin: 05/14/20 22:34 Dose: 10 mg Documented by: Folic Acid (Folic Acid -) 1 mg PO DAILY [facility] Last Admin: 05/14/20 09:39 Dose: 1 mg Documented by: Gabapentin (Neurontin -) 1,200 mg PO [facility] Last Admin: 05/14/20 22:35 Dose: 1,200 mg Documented by: Ceftriaxone Sodium 2 gm/ (Dextrose) 100 mls @ 100 mls/hr IVPB DAILY [facility]; Protocol Last Admin: 05/14/20 09:38 Dose: 100 mls/hr Documented by: Lactobacillus Acidophilus (Bacid -) 1 tab PO DAILY [facility] Last Admin: 05/14/20 09:39 Dose: 1 tab Documented by: Loratadine (Claritin -) 10 mg PO DAILY [facility] Last Admin: 05/14/20 09:39 Dose: 10 mg Documented by: Losartan Potassium (Cozaar -) 50 mg PO DAILY [facility] Last Admin: 05/14/20 09:40 Dose: 50 mg Documented by: Montelukast Sodium (Singulair -) 10 mg PO [facility] Last Admin: 05/14/20 22:35 Dose: 10 mg Documented by: Multivitamins/Minerals/Vitamin C (Tab-A-Vit -) 1 tab PO DAILY [facility] Last Admin: 05/14/20 09:39 Dose: 1 tab Documented by: Pantoprazole Sodium (Protonix -) 40 mg PO Q12H [facility] Last Admin: 05/14/20 18:47 Dose: Not Given Documented by: Potassium Chloride (K-Dur -) 20 meq PO DAILY [facility] Last Admin: 05/14/20 09:39 Dose: 20 meq Documented by: Rivaroxaban (Xarelto) 20 mg PO DAILY@1800 [facility] Last Admin: 05/14/20 17:17 Dose: 20 mg Documented by: Solifenacin (Vesicare -) 5 mg PO DAILY@1500 [facility] Last Admin: 05/14/20 15:02 Dose: 5 mg Documented by: - Objective Vital Signs: Vital Signs Temperature 97.5 F L 05/15/20 06:00 Pulse Rate 48 L 05/15/20 06:00 Respiratory Rate 18 05/15/20 06:00 Blood Pressure 101/54 L 05/15/20 06:00 O2 Sat by Pulse Oximetry (%) 94 L 05/15/20 06:00 Eyes: Yes: WNL, Conjunctiva Clear, EOM Intact HENT: Yes: WNL, Atraumatic, Normocephalic Neck: Yes: WNL, Supple, Trachea Midline Cardiovascular: Yes: WNL, Regular Rate and Rhythm Respiratory: Yes: WNL, Regular, CTA Bilaterally Gastrointestinal: Yes: WNL, Normal Bowel Sounds Genitourinary: Yes: WNL Musculoskeletal: Yes: WNL Extremities: Yes: WNL Edema: No Integumentary: Yes: WNL Neurological: Yes: WNL, Alert, Oriented ...Motor Strength: WNL Psychiatric: Yes: WNL Labs: CBC, BMP 05/14/20 06:13 05/14/20 06:13 INR, PTT INR 1.05 (0.83-1.09) 05/11/20 18:50 Problem List - Problems (1) Chest pain Code(s): R07.9 - CHEST PAIN, UNSPECIFIED Qualifiers: Chest pain type: unspecified Qualified Code(s): R07.9 - Chest pain, unspecified (2) Diarrhea Code(s): R19.7 - DIARRHEA, UNSPECIFIED Qualifiers: Diarrhea type: unspecified type Qualified Code(s): R19.7 - Diarrhea, unspecified (3) Emesis Code(s): R11.10 - VOMITING, UNSPECIFIED Qualifiers: Vomiting type: unspecified Vomiting Intractability: unspecified Nausea presence: with nausea Qualified Code(s): R11.2 - Nausea with vomiting, unspecified (4) Vertigo Code(s): R42 - DIZZINESS AND GIDDINESS (5) Laceration Code(s): T14.8 - OTHER INJURY OF UNSPECIFIED BODY REGION * DO NOT USE * (6) Tooth fracture Code(s): S02.5XXA - FRACTURE OF TOOTH (TRAUMATIC), INIT FOR CLOS FX Assessment/Plan Vertigo Diarrhea; hypomagnesemia UTI Burning chest pain; 2 prior ER visits in the past month for similar symptoms (the first after having nasal sinus surgery); TNI consistently < 0.02 Multiple CAD risks diastolic CHF HTN HLD DM morbid obesity ?sleep apnea TNI < 0.02 Plan: Replete magnesium. COVID negative BNP 430; CXR clear; no JVP antibiotics per ID Avoid dehydration On atorvastatin + Zetia for elevated LDL. On losartan + furosemide (she had been on Cardura, but would not continue this medication due to increased risk of CHF); f/u BP serially F/u BUN/Cr and electrolytes. Is and Os, daily weight. Dietary consult (pt requests help with weight/DM). sleep studies to r/o sleep apnea MIBI stress test today.
[2020-05-15] MEDS ORDERED: PT OWN MED DRAWER 7, Y5N ONE ×2 (09:57→18:12)
[2020-05-15] MEDS: LORATADINE 10 MG TABLET PO SCH (10:17)
[2020-05-15] MEDS: FOLIC ACID 1 MG TABLET (FP) PO SCH ×2 (10:17→11:02)
[2020-05-15] MEDS: MULTIVITAMINS (DAILY MVI) TABLET (FP) PO SCH ×2 (10:17→11:02)
[2020-05-15] MEDS: CALCIUM 500MG/VIT-D 200 UNITS COMBO TABLET (FP) PO SCH ×2 (10:17→11:02)
[2020-05-15] MEDS: LACTOBACILLUS ACIDOPHILUS 1 TABLET PO SCH (10:17)
[2020-05-15] MEDS: CHOLECALCIFEROL (VIT D SOLUTION) 400 UNIT/1 ML DROPS PO SCH ×3 (10:18→23:56)
[2020-05-15] MEDS: BUDESONIDE/FORMETEROL FUMARATE 160/4.5 mcg INHALER IH SCH ×2 (10:18→23:55)
[2020-05-15] MEDS: POTASSIUM CHLORIDE TABS 20 MEQ TABLET.ER (FP) PO SCH ×2 (10:18→11:02)
[2020-05-15] MEDS: LOSARTAN POTASSIUM 50 MG TABLET (FP) PO SCH ×2 (10:18→12:32)
[2020-05-15] MEDS: PANTOPRAZOLE 40 MG TABLET PO SCH ×2 (10:18→18:05)
[2020-05-15] MEDS: CEFTRIAXONE 2 GM in DEXTROSE 5%-WATER 100 ML IVPB SCH (11:02)
--- NOTE | 2020-05-15 12:10 | PN ---
Progress Note, Physician History of Present Illness: stable cx results noted no dirrhoea - Current Medication List Current Medications: Active Medications Acetaminophen (Tylenol -) 650 mg PO Q6H PRN PRN Reason: PAIN LEVEL 6-10 Last Admin: 05/14/20 22:50 Dose: 650 mg Documented by: Atorvastatin Calcium (Lipitor -) 80 mg PO [facility] Last Admin: 05/14/20 22:36 Dose: 80 mg Documented by: Budesonide/Formoterol Fumarate (Symbicort 160/4.5mcg -) 2 puff IH BID [facility] Last Admin: 05/15/20 10:18 Dose: 2 puff Documented by: Calcium Carbonate/Cholecalciferol (Os-Altaf 500+D -) 1 tab PO DAILY [facility] Last Admin: 05/15/20 11:02 Dose: Not Given Documented by: Cholecalciferol (Vitamin D3 Oral Solution -) 600 unit PO BID [facility] Last Admin: 05/15/20 11:02 Dose: Not Given Documented by: Citalopram Hydrobromide (Celexa -) 40 mg PO [facility] Last Admin: 05/14/20 22:36 Dose: 40 mg Documented by: Ezetimibe (Zetia -) 10 mg PO [facility] Last Admin: 05/14/20 22:34 Dose: 10 mg Documented by: Folic Acid (Folic Acid -) 1 mg PO DAILY [facility] Last Admin: 05/15/20 11:02 Dose: Not Given Documented by: Gabapentin (Neurontin -) 1,200 mg PO [facility] Last Admin: 05/14/20 22:35 Dose: 1,200 mg Documented by: Ceftriaxone Sodium 2 gm/ (Dextrose) 100 mls @ 100 mls/hr IVPB DAILY [facility]; Protocol Last Admin: 05/15/20 11:02 Dose: Not Given Documented by: Lactobacillus Acidophilus (Bacid -) 1 tab PO DAILY [facility] Last Admin: 05/15/20 10:17 Dose: 1 tab Documented by: Loratadine (Claritin -) 10 mg PO DAILY [facility] Last Admin: 05/15/20 10:17 Dose: 10 mg Documented by: Losartan Potassium (Cozaar -) 50 mg PO DAILY [facility] Last Admin: 05/14/20 09:40 Dose: 50 mg Documented by: Montelukast Sodium (Singulair -) 10 mg PO [facility] Last Admin: 05/14/20 22:35 Dose: 10 mg Documented by: Multivitamins/Minerals/Vitamin C (Tab-A-Vit -) 1 tab PO DAILY [facility] Last Admin: 05/15/20 11:02 Dose: Not Given Documented by: Pantoprazole Sodium (Protonix -) 40 mg PO Q12H [facility] Last Admin: 05/15/20 10:18 Dose: 40 mg Documented by: Potassium Chloride (K-Dur -) 20 meq PO DAILY [facility] Last Admin: 05/15/20 11:02 Dose: Not Given Documented by: Rivaroxaban (Xarelto) 20 mg PO DAILY@1800 [facility] Last Admin: 05/14/20 17:17 Dose: 20 mg Documented by: Solifenacin (Vesicare -) 5 mg PO DAILY@1500 [facility] Last Admin: 05/14/20 15:02 Dose: 5 mg Documented by: - Objective Vital Signs: Vital Signs Temperature 98.0 F 05/15/20 10:00 Pulse Rate 53 L 05/15/20 10:00 Respiratory Rate 18 05/15/20 10:00 Blood Pressure 153/99 05/15/20 10:00 O2 Sat by Pulse Oximetry (%) 94 L 05/15/20 06:00 Constitutional: Yes: No Distress, Calm Cardiovascular: Yes: S1, S2 Respiratory: Yes: Regular, CTA Bilaterally Gastrointestinal: Yes: Normal Bowel Sounds, Soft Musculoskeletal: Yes: WNL Extremities: Yes: WNL Neurological: Yes: Alert, Oriented Psychiatric: Yes: Alert, Oriented Labs: CBC, BMP 05/14/20 06:13 05/14/20 06:13 INR, PTT INR 1.05 (0.83-1.09) 05/11/20 18:50 Assessment/Plan 60 y.o. F w/ PMHx. of Factor V Leiden deficiency, DVT, PE (2016- on Xarelto), chronic LE swelling, HTN, HLD, GERD, hiatal hernia, asthma, morbid obesity, vertigo, and recent admission for non-radiating burning chest pain/pressure (04/18 10/07) presented with dizziness, high home BP of 195/90, 2 weeks of light-yellow diarrhea, and 3-4 days of clear liquid vomiting and was admitted for r/o ACS. chest pain vomiting dirrhoea factor v leiden plan cx results noted will stop ceftriaxone will start patient on oral vanco need for 2 weeks
--- NOTE | 2020-05-15 12:58 | PN ---
Physical Exam: SUBJECTIVE: Patient seen and examined at bedside, denies complaints, cardiology requesting stress test but first pt. endorses recently getting one, trying to get results from outside Laundry Technician. VSS. OBJECTIVE: GENERAL: The patient is awake, alert, and fully oriented, in no acute distress. HEAD: Normal with no signs of trauma. EYES: Sclera anicteric, conjunctiva clear. ENT: Dry mucous membranes. NECK: Trachea midline, full range of motion, supple. LUNGS: Breath sounds equal, clear to auscultation bilaterally anteriorly, no wheezes, no crackles, no accessory muscle use. HEART: Regular rate and rhythm, S1, S2 without murmur, rub or gallop. ABDOMEN: Soft, morbidly obese, diffuse tenderness? to palpation in lower abdomen, nondistended, normoactive bowel sounds, no guarding, no rebound EXTREMITIES: 2+ dorsal pedal pulses, warm, well-perfused, no edema. NEUROLOGICAL: Normal speech, gait not observed. PSYCH: Normal mood, normal affect. SKIN: Warm, dryashes or lesions noted Vital Signs - 24 hr 05/14/20 05/14/20 05/14/20 14:05 18:01 21:00 Temperature 97.7 F 98.3 F Pulse Rate 56 L 59 L Respiratory 18 18 18 Rate Blood Pressure 130/50 L 117/71 O2 Sat by Pulse 98 Oximetry (%) 05/14/20 05/15/20 05/15/20 22:00 02:00 06:00 Temperature 97.8 F 97.9 F 97.5 F L Pulse Rate 55 L 50 L 48 L Respiratory 18 18 18 Rate Blood Pressure 121/53 L 129/66 101/54 L O2 Sat by Pulse 94 L 94 L Oximetry (%) 05/15/20 10:00 Temperature 98.0 F Pulse Rate 53 L Respiratory 18 Rate Blood Pressure 153/99 O2 Sat by Pulse Oximetry (%) Microbiology 05/12/20 10:00 Stool Salmonella/Shigella Culture - Final Mr S Aureus 05/12/20 10:00 Stool Yersinia Culture - Final NO GROWTH OF YERSINIA SPECIES OBTAINED 05/12/20 10:00 Stool Vibrio Culture - Final NO GROWTH OF VIBRIO SPECIES OBTAINED 05/12/20 10:00 Stool Escherichia coli 0157 Culture - Final NO GROWTH OF E COLI 0157 OBTAINED Laboratory Results - last 24 hr 05/12/20 10:00 Stool H. pylori Ag Negative Home Medications Medication Instructions Recorded Calcium Carb/Vitamin D3/Vit K1 1 each PO DAILY 07/29/14 [Calcium + D Soft Chewable Tab] Cetirizine HCl [Zyrtec -] 10 mg PO DAILY 07/29/14 Cholecalciferol (Vitamin D3) 600 unit PO BID 07/29/14 [Vitamin D3] Citalopram Hydrobromide [Celexa -] 40 mg PO HS 07/29/14 Esomeprazole Mag Trihydrate 40 mg PO BID 07/29/14 [Nexium] Fluticasone/Salmeterol [Advair Hfa 2 inh PO BID 07/29/14 230-21 Mcg Inhaler] Folic Acid - 1 mg PO DAILY 07/29/14 Gabapentin [Neurontin] 1,200 mg PO HS 07/29/14 Gabapentin [Neurontin] 300 mg PO TID PRN 07/29/14 Montelukast Na [Singulair -] 10 mg PO HS 07/29/14 Multivitamins [Multivit ([facility] 1 tab PO DAILY 07/29/14 Formulary)] Simvastatin [Zocor -] 40 mg PO HS 07/29/14 Meclizine HCl [Antivert -] 12.5 mg PO TID PRN 07/01/16 Rivaroxaban [Xarelto -] 20 mg PO DAILY 07/01/16 Ezetimibe [Zetia -] 10 mg PO DAILY 04/28/20 Furosemide [Lasix -] 20 mg PO DAILY 04/28/20 Losartan Potassium 100 mg PO DAILY 04/28/20 Oxybutynin Chloride [Oxybutynin 10 mg PO DAILY 05/11/20 Chloride ER] Potassium Chloride [Klor-Con M20] 20 meq PO DAILY 05/11/20 Lactobacillus Acidophilus [Bacid -] 1 tab PO DAILY #14 tab 05/14/20 Nitrofurantoin Monohyd/M-Cryst 100 mg PO BID #14 capsule 05/14/20 [Macrobid -] Laboratory Results - last 24 hr 05/12/20 10:00 Stool H. pylori Ag Negative Active Medications Generic Name Dose Route Start Last Admin Trade Name Freq PRN Reason Stop Dose Admin Acetaminophen 650 mg 05/12/20 16:03 05/14/20 22:50 Tylenol - PO 650 mg Q6H PRN Administration PAIN LEVEL 6-10 Atorvastatin Calcium 80 mg 05/12/20 22:00 05/14/20 22:36 Lipitor - PO 80 mg HS [facility] Administration Budesonide/Formoterol Fumarate 2 puff 05/12/20 10:00 05/15/20 10:18 Symbicort 160/4.5mcg - IH 2 puff BID [facility] Administration Calcium Carbonate/Cholecalciferol 1 tab 05/12/20 10:00 05/15/20 11:02 Os-Altaf 500+D - PO Not Given DAILY [facility] Cholecalciferol 600 unit 05/12/20 10:00 05/15/20 11:02 Vitamin D3 Oral Solution - PO Not Given BID [facility] Citalopram Hydrobromide 40 mg 05/12/20 22:00 05/14/20 22:36 Celexa - PO 40 mg HS [facility] Administration Ezetimibe 10 mg 05/12/20 22:00 05/14/20 22:34 Zetia - PO 10 mg HS [facility] Administration Folic Acid 1 mg 05/12/20 10:00 05/15/20 11:02 Folic Acid - PO Not Given DAILY [facility] Gabapentin 1,200 mg 05/12/20 22:00 05/14/20 22:35 Neurontin - PO 1,200 mg HS [facility] Administration Lactobacillus Acidophilus 1 tab 05/13/20 10:30 05/15/20 10:17 Bacid - PO 1 tab DAILY [facility] Administration Loratadine 10 mg 05/12/20 10:00 05/15/20 10:17 Claritin - PO 10 mg DAILY [facility] Administration Losartan Potassium 50 mg 05/13/20 10:22 05/15/20 12:32 Cozaar - PO 50 mg DAILY [facility] Administration Montelukast Sodium 10 mg 05/12/20 22:00 05/14/20 22:35 Singulair - PO 10 mg HS [facility] Administration Multivitamins/Minerals/Vitamin C 1 tab 05/12/20 10:00 05/15/20 11:02 Tab-A-Vit - PO Not Given DAILY [facility] Pantoprazole Sodium 40 mg 05/12/20 07:00 05/15/20 10:18 Protonix - PO 40 mg Q12H [facility] Administration Potassium Chloride 20 meq 05/12/20 10:00 05/15/20 11:02 K-Dur - PO Not Given DAILY [facility] Rivaroxaban 20 mg 05/12/20 18:00 05/14/20 17:17 Xarelto PO 20 mg DAILY@1800 [facility] Administration Solifenacin 5 mg 05/13/20 15:00 05/14/20 15:02 Vesicare - PO 5 mg DAILY@1500 [facility] Administration Vancomycin HCl 125 mg 05/15/20 18:00 Vancomycin Oral Solution PO Q6HPO [facility] ASSESSMENT/PLAN: 60 F Functional diarrhea Vertigo UTI ACS ruled out HFpEF HLD DM morbid obesity Suspected ELISA Factor V Leiden def on AC Hypokalemia DM neuropathy Depression Plan: Finished abx for UTI, awaiting stool OP/calprotectin, diarrhea now resolved Cardiology requesting stress test today if results not obtainable, pt. refusing stress test however, trying to get results from outside Laundry Technician Cont. probiotics Cont. Xarelto for AC Cardiology following ID following DVT ppx: Xarelto DC home if refusing stress test Visit type - Emergency Visit Emergency Visit: Yes ED Registration Date: 05/12/20 Care time: The patient presented to the Emergency Department on the above date and was hospitalized for further evaluation of their emergent condition. - New Patient This patient is new to me today: No - Critical Care Critical Care patient: No - Discharge Referral Referred to [facility] Med P.C.: No
[2020-05-15] MEDS: SOLIFENACIN SUCCINATE 5 MG TAB PO SCH (16:03)
[2020-05-15] MEDS: RIVAROXABAN 20 MG TABLET PO SCH (17:33)
[2020-05-15] MEDS: ACETAMINOPHEN 325 MG TABLET (FP) PO PRN (18:01)
[2020-05-15] MEDS: VANCOMYCIN 250 MG/5 ML ORAL SOLUTION PO SCH (18:03)
[2020-05-15] MEDS: ATORVASTATIN CA 80 MG TABLET (FP) PO SCH (21:28)
[2020-05-15] MEDS: GABAPENTIN 400 MG CAPSULE PO SCH (21:30)
[2020-05-15] MEDS: MONTELUKAST NA 10 MG TABLET PO SCH (21:30)
[2020-05-15] MEDS: CITALOPRAM HYDROBROMIDE 20 MG TABLET PO SCH (21:30)
[2020-05-15] MEDS: EZETIMIBE 10 MG TABLET (FP) PO SCH (21:32)
[2020-05-16] MEDS: VANCOMYCIN 250 MG/5 ML ORAL SOLUTION PO SCH ×5 (00:03→23:48)
[2020-05-16] MEDS: ACETAMINOPHEN 325 MG TABLET (FP) PO PRN ×2 (00:06→18:11)
[2020-05-16] MEDS: PANTOPRAZOLE 40 MG TABLET PO SCH ×2 (06:25→18:00)
--- NOTE | 2020-05-16 06:42 | PN ---
Progress Note (short form) - Note Progress Note: Coverage for Dr. Analisa Solis Chief Complaint: Events noted, notes reviewed, sitting in bed, denies any chest discomfort, denies dyspnea History of Present Illness: Seen and examined on telemetry. Events noted, notes reviewed, sitting in bed, denies any chest discomfort, denies dyspnea Medications: Current Medications Generic Name Dose Route Start Last Admin Trade Name Freq PRN Reason Stop Dose Admin Acetaminophen 650 mg 05/12/20 16:03 05/16/20 00:06 Tylenol - PO 650 mg Q6H PRN Administration PAIN LEVEL 6-10 Atorvastatin Calcium 80 mg 05/12/20 22:00 05/15/20 21:28 Lipitor - PO Not Given HS [facility] Budesonide/Formoterol Fumarate 2 puff 05/12/20 10:00 05/15/20 23:55 Symbicort 160/4.5mcg - IH 2 puff BID [facility] Administration Calcium Carbonate/Cholecalciferol 1 tab 05/12/20 10:00 05/15/20 11:02 Os-Altaf 500+D - PO Not Given DAILY [facility] Cholecalciferol 600 unit 05/12/20 10:00 05/15/20 23:56 Vitamin D3 Oral Solution - PO 600 unit BID [facility] Administration Citalopram Hydrobromide 40 mg 05/12/20 22:00 05/15/20 21:30 Celexa - PO 40 mg HS [facility] Administration Ezetimibe 10 mg 05/12/20 22:00 05/15/20 21:32 Zetia - PO 10 mg HS [facility] Administration Folic Acid 1 mg 05/12/20 10:00 05/15/20 11:02 Folic Acid - PO Not Given DAILY [facility] Gabapentin 1,200 mg 05/12/20 22:00 05/15/20 21:30 Neurontin - PO 1,200 mg HS [facility] Administration Lactobacillus Acidophilus 1 tab 05/13/20 10:30 05/15/20 10:17 Bacid - PO 1 tab DAILY [facility] Administration Loratadine 10 mg 05/12/20 10:00 05/15/20 10:17 Claritin - PO 10 mg DAILY [facility] Administration Losartan Potassium 50 mg 05/13/20 10:22 05/15/20 12:32 Cozaar - PO 50 mg DAILY [facility] Administration Montelukast Sodium 10 mg 05/12/20 22:00 05/15/20 21:30 Singulair - PO 10 mg HS [facility] Administration Multivitamins/Minerals/Vitamin C 1 tab 05/12/20 10:00 05/15/20 11:02 Tab-A-Vit - PO Not Given DAILY [facility] Pantoprazole Sodium 40 mg 05/12/20 07:00 05/16/20 06:25 Protonix - PO 40 mg Q12H [facility] Administration Potassium Chloride 20 meq 05/12/20 10:00 05/15/20 11:02 K-Dur - PO Not Given DAILY [facility] Rivaroxaban 20 mg 05/12/20 18:00 05/15/20 17:33 Xarelto PO 20 mg DAILY@1800 [facility] Administration Solifenacin 5 mg 05/13/20 15:00 05/15/20 16:03 Vesicare - PO Not Given DAILY@1500 [facility] Vancomycin HCl 125 mg 05/15/20 18:00 05/16/20 06:25 Vancomycin Oral Solution PO 125 mg Q6HPO [facility] Administration Review of Systems Constitutional: denies Chills or Fever Respiratory: denies: Dyspnea Cardiovascular: As noted above Gastrointestinal: denies Nausea, Vomiting, Diarrhea, Constipation or Abdominal Discomfort Genitourinary: No Symptoms Reported Musculoskeletal: No Symptoms Reported Vital Signs: Last Vital Signs Temp Pulse Resp BP Pulse Ox 98.1 F 56 L 20 151/70 98 05/16/20 01:34 05/16/20 01:34 05/16/20 01:34 05/16/20 01:34 05/15/20 20:52 Intake & Output 05/13/20 05/14/20 05/15/20 05/16/20 23:59 23:59 23:59 23:59 Intake Total 2180 580 480 360 Balance 2180 580 480 360 Weight 237 lb Neck: Supple Negative JVD Respiratory: Diminished Breath Sounds Bilaterally- Bases Cardiovascular: S1 S2 Regular Rate Rhythm Gastrointestinal: Soft Benign Normal Bowel Sounds Ext: Negative Edema Labs: CBC, BMP 05/14/20 06:13 05/14/20 06:13 Hepatic Panel Total Bilirubin 0.6 mg/dL (0.2-1) 05/14/20 06:13 AST 24 U/L (15-37) 05/14/20 06:13 ALT 38 U/L (13-61) 05/14/20 06:13 Alkaline Phosphatase 62 U/L (45-117) 05/14/20 06:13 Albumin 3.4 g/dl (3.4-5.0) 05/14/20 06:13 INR, PTT INR 1.05 (0.83-1.09) 05/11/20 18:50 Assessment/Plan ASSESSMENT: 1. Chest pain syndrome coronary artery disease angina pectoris to be considered in the differential diagnosis 2. Diastolic left ventricular dysfunction with clinical class 0-I [place] [employer] classification left ventricular failure, currently compensated/euvolemic 3. Hypertensive cardiovascular disease 4. Diabetes mellitus 5. Hypercholesterolemia 6. Obstructive sleep apnea highly suspected 7. History of benign positional vertigo 8. Recurrent diarrhea 9. Urinary tract infection 10. 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 Morbid obesity PLAN: 1. Continue Cozaar therapy 2. Continue Lasix therapy with close monitoring of electrolytes and renal function 3. Continue Lipitor and Zetia therapies 4. Continue Xarelto therapy for management of the above-noted Factor Leiden/factor V deficiency 5. Plan to proceed with pharmacologic Lexiscan myocardial perfusion imaging study this coming Monday for further evaluation of the above-noted presentation Sanjay Guzmán MD
[2020-05-16] MEDS: CALCIUM 500MG/VIT-D 200 UNITS COMBO TABLET (FP) PO SCH (09:40)
[2020-05-16] MEDS: LORATADINE 10 MG TABLET PO SCH (09:40)
[2020-05-16] MEDS: LACTOBACILLUS ACIDOPHILUS 1 TABLET PO SCH (09:40)
[2020-05-16] MEDS: MULTIVITAMINS (DAILY MVI) TABLET (FP) PO SCH (09:40)
[2020-05-16] MEDS: FOLIC ACID 1 MG TABLET (FP) PO SCH (09:40)
[2020-05-16] MEDS: POTASSIUM CHLORIDE TABS 20 MEQ TABLET.ER (FP) PO SCH (09:40)
[2020-05-16] MEDS: LOSARTAN POTASSIUM 50 MG TABLET (FP) PO SCH (09:40)
[2020-05-16] MEDS: CHOLECALCIFEROL (VIT D SOLUTION) 400 UNIT/1 ML DROPS PO SCH ×2 (09:41→21:21)
[2020-05-16] MEDS: BUDESONIDE/FORMETEROL FUMARATE 160/4.5 mcg INHALER IH SCH ×2 (09:41→21:21)
--- NOTE | 2020-05-16 12:53 | PN ---
Physical Exam: SUBJECTIVE: Patient seen and examined at bedside, denies complaints, for stress test inpatient Monday as per Cardiology recs. VSS. OBJECTIVE: GENERAL: The patient is awake, alert, and fully oriented, in no acute distress. HEAD: Normal with no signs of trauma. EYES: Sclera anicteric, conjunctiva clear. ENT: Dry mucous membranes. NECK: Trachea midline, full range of motion, supple. LUNGS: Breath sounds equal, clear to auscultation bilaterally anteriorly, no wheezes, no crackles, no accessory muscle use. HEART: Regular rate and rhythm, S1, S2 without murmur, rub or gallop. ABDOMEN: Soft, morbidly obese, diffuse tenderness? to palpation in lower abdomen, nondistended, normoactive bowel sounds, no guarding, no rebound EXTREMITIES: 2+ dorsal pedal pulses, warm, well-perfused, no edema. NEUROLOGICAL: Normal speech, gait not observed. PSYCH: Normal mood, normal affect. SKIN: Warm, dryashes or lesions noted Laboratory Results - last 24 hr 05/12/20 10:00 Stool O & P Wet [place] P Permanent Slide Final report Active Medications Generic Name Dose Route Start Last Admin Trade Name Freq PRN Reason Stop Dose Admin Acetaminophen 650 mg 05/12/20 16:03 05/16/20 00:06 Tylenol - PO 650 mg Q6H PRN Administration PAIN LEVEL 6-10 Atorvastatin Calcium 80 mg 05/12/20 22:00 05/15/20 21:28 Lipitor - PO Not Given HS [facility] Budesonide/Formoterol Fumarate 2 puff 05/12/20 10:00 05/16/20 09:41 Symbicort 160/4.5mcg - IH 2 puff BID [facility] Administration Calcium Carbonate/Cholecalciferol 1 tab 05/12/20 10:00 05/16/20 09:40 Os-Altaf 500+D - PO 1 tab DAILY [facility] Administration Cholecalciferol 600 unit 05/12/20 10:00 05/16/20 09:41 Vitamin D3 Oral Solution - PO 600 unit BID [facility] Administration Citalopram Hydrobromide 40 mg 05/12/20 22:00 05/15/20 21:30 Celexa - PO 40 mg HS [facility] Administration Ezetimibe 10 mg 05/12/20 22:00 05/15/20 21:32 Zetia - PO 10 mg HS [facility] Administration Folic Acid 1 mg 05/12/20 10:00 05/16/20 09:40 Folic Acid - PO 1 mg DAILY [facility] Administration Gabapentin 1,200 mg 05/12/20 22:00 05/15/20 21:30 Neurontin - PO 1,200 mg HS [facility] Administration Lactobacillus Acidophilus 1 tab 05/13/20 10:30 05/16/20 09:40 Bacid - PO 1 tab DAILY [facility] Administration Loratadine 10 mg 05/12/20 10:00 05/16/20 09:40 Claritin - PO 10 mg DAILY [facility] Administration Losartan Potassium 50 mg 05/13/20 10:22 05/16/20 09:40 Cozaar - PO 50 mg DAILY [facility] Administration Montelukast Sodium 10 mg 05/12/20 22:00 05/15/20 21:30 Singulair - PO 10 mg HS [facility] Administration Multivitamins/Minerals/Vitamin C 1 tab 05/12/20 10:00 05/16/20 09:40 Tab-A-Vit - PO 1 tab DAILY [facility] Administration Pantoprazole Sodium 40 mg 05/12/20 07:00 05/16/20 06:25 Protonix - PO 40 mg Q12H [facility] Administration Potassium Chloride 20 meq 05/12/20 10:00 05/16/20 09:40 K-Dur - PO 20 meq DAILY [facility] Administration Rivaroxaban 20 mg 05/12/20 18:00 05/15/20 17:33 Xarelto PO 20 mg DAILY@1800 [facility] Administration Solifenacin 5 mg 05/13/20 15:00 05/15/20 16:03 Vesicare - PO Not Given DAILY@1500 [facility] Vancomycin HCl 125 mg 05/15/20 18:00 05/16/20 12:10 Vancomycin Oral Solution PO 125 mg Q6HPO [facility] Administration ASSESSMENT/PLAN: 60 F Functional diarrhea r/o CAD Vertigo UTI ACS ruled out HFpEF HLD DM morbid obesity Suspected ELISA Factor V Leiden def on AC Hypokalemia DM neuropathy Depression Plan: FInished abx regimen Cardiology requesting stress test Monday morning, NPO Monday night, cont. tele Cont. probiotics Cont. Xarelto for AC Cardiology following ID following DVT ppx: Xarelto Visit type - Emergency Visit Emergency Visit: Yes ED Registration Date: 05/12/20 Care time: The patient presented to the Emergency Department on the above date and was hospitalized for further evaluation of their emergent condition. - New Patient This patient is new to me today: No - Critical Care Critical Care patient: No - Discharge Referral Referred to [facility] Med P.C.: No
[2020-05-16] MEDS: SOLIFENACIN SUCCINATE 5 MG TAB PO SCH (14:49)
[2020-05-16] MEDS: RIVAROXABAN 20 MG TABLET PO SCH (18:00)
--- NOTE | 2020-05-16 18:08 | PN ---
Progress Note, Physician History of Present Illness: Pt denies diarrhea. Afebrile, ambulating, without distress. - Current Medication List Current Medications: Active Medications Acetaminophen (Tylenol -) 650 mg PO Q6H PRN PRN Reason: PAIN LEVEL 6-10 Last Admin: 05/16/20 00:06 Dose: 650 mg Documented by: Atorvastatin Calcium (Lipitor -) [address] [facility] Last Admin: 05/15/20 21:28 Dose: Not Given Documented by: Budesonide/Formoterol Fumarate (Symbicort 160/4.5mcg -) 2 puff IH BID [facility] Last Admin: 05/16/20 09:41 Dose: 2 puff Documented by: Calcium Carbonate/Cholecalciferol (Os-Altaf 500+D -) 1 tab PO DAILY [facility] Last Admin: 05/16/20 09:40 Dose: 1 tab Documented by: Cholecalciferol (Vitamin D3 Oral Solution -) 600 unit PO BID [facility] Last Admin: 05/16/20 09:41 Dose: 600 unit Documented by: Citalopram Hydrobromide (Celexa -) [address] [facility] Last Admin: 05/15/20 21:30 Dose: 40 mg Documented by: Ezetimibe (Zetia -) [address] [facility] Last Admin: 05/15/20 21:32 Dose: 10 mg Documented by: Folic Acid (Folic Acid -) 1 mg PO DAILY [facility] Last Admin: 05/16/20 09:40 Dose: 1 mg Documented by: Gabapentin (Neurontin -) 1,[address] [facility] Last Admin: 05/15/20 21:30 Dose: 1,200 mg Documented by: Lactobacillus Acidophilus (Bacid -) 1 tab PO DAILY [facility] Last Admin: 05/16/20 09:40 Dose: 1 tab Documented by: Loratadine (Claritin -) 10 mg PO DAILY [facility] Last Admin: 05/16/20 09:40 Dose: 10 mg Documented by: Losartan Potassium (Cozaar -) 50 mg PO DAILY [facility] Last Admin: 05/16/20 09:40 Dose: 50 mg Documented by: Montelukast Sodium (Singulair -) [address] [facility] Last Admin: 05/15/20 21:30 Dose: 10 mg Documented by: Multivitamins/Minerals/Vitamin C (Tab-A-Vit -) 1 tab PO DAILY [facility] Last Admin: 05/16/20 09:40 Dose: 1 tab Documented by: Pantoprazole Sodium (Protonix -) 40 mg PO Q12H [facility] Last Admin: 05/16/20 18:00 Dose: 40 mg Documented by: Potassium Chloride (K-Dur -) 20 meq PO DAILY [facility] Last Admin: 05/16/20 09:40 Dose: 20 meq Documented by: Rivaroxaban (Xarelto) 20 mg PO DAILY@1800 [facility] Last Admin: 05/16/20 18:00 Dose: 20 mg Documented by: Solifenacin (Vesicare -) 5 mg PO DAILY@1500 [facility] Last Admin: 05/16/20 14:49 Dose: 5 mg Documented by: Vancomycin HCl (Vancomycin Oral Solution) 125 mg PO Q6HPO [facility] Last Admin: 05/16/20 18:00 Dose: 125 mg Documented by: - Objective Vital Signs: Vital Signs Temperature 99.0 F 05/16/20 14:00 Pulse Rate 69 05/16/20 14:00 Respiratory Rate 18 05/16/20 10:00 Blood Pressure 157/76 05/16/20 14:00 O2 Sat by Pulse Oximetry (%) 100 05/16/20 09:00 Constitutional: Yes: No Distress, Calm Cardiovascular: Yes: Regular Rate and Rhythm Respiratory: Yes: Regular Gastrointestinal: Yes: Normal Bowel Sounds, Soft Genitourinary: Yes: WNL Integumentary: Yes: WNL Neurological: Yes: Alert, Oriented Labs: CBC, BMP 05/14/20 06:13 05/14/20 06:13 INR, PTT INR 1.05 (0.83-1.09) 05/11/20 18:50 Microbiology 05/12/20 10:00 Stool Salmonella/Shigella Culture - Final Mr S Aureus 05/12/20 10:00 Stool Campylobacter Culture - Final NO GROWTH OF CAMPYLOBACTER SPECIES OBTAINED 05/12/20 10:00 Stool Yersinia Culture - Final NO GROWTH OF YERSINIA SPECIES OBTAINED 05/12/20 10:00 Stool Vibrio Culture - Final NO GROWTH OF VIBRIO SPECIES OBTAINED 05/12/20 10:00 Stool Escherichia coli 0157 Culture - Final NO GROWTH OF E COLI 0157 OBTAINED Problem List - Problems (1) Chest pain Code(s): R07.9 - CHEST PAIN, UNSPECIFIED Qualifiers: Chest pain type: unspecified Qualified Code(s): R07.9 - Chest pain, unspecified (2) Diarrhea Code(s): R19.7 - DIARRHEA, UNSPECIFIED Qualifiers: Diarrhea type: unspecified type Qualified Code(s): R19.7 - Diarrhea, unspecified (3) Emesis Code(s): R11.10 - VOMITING, UNSPECIFIED Qualifiers: Vomiting type: unspecified Vomiting Intractability: unspecified Nausea presence: with nausea Qualified Code(s): R11.2 - Nausea with vomiting, unspecified Assessment/Plan Diarrhea resolved - continue Vancomycin PO - pt is alert, afebrile, without abd pain
[2020-05-16] MEDS: GABAPENTIN 400 MG CAPSULE PO SCH (21:19)
[2020-05-16] MEDS: CITALOPRAM HYDROBROMIDE 20 MG TABLET PO SCH (21:20)
[2020-05-16] MEDS: EZETIMIBE 10 MG TABLET (FP) PO SCH (21:20)
[2020-05-16] MEDS: MONTELUKAST NA 10 MG TABLET PO SCH (21:20)
[2020-05-16] MEDS: ATORVASTATIN CA 80 MG TABLET (FP) PO SCH (21:26)
[2020-05-16] MEDS: SIMVASTATIN 40 MG PO SCH (23:47)
[2020-05-16] MEDS ORDERED: PT OWN MED DRAWER 7, Y5N ONE (23:57)
[2020-05-17] MEDS: ACETAMINOPHEN 325 MG TABLET (FP) PO PRN ×2 (00:15→16:22)
[2020-05-17] MEDS: VANCOMYCIN 250 MG/5 ML ORAL SOLUTION PO SCH ×3 (05:54→18:12)
[2020-05-17] MEDS: PANTOPRAZOLE 40 MG TABLET PO SCH ×2 (06:00→18:12)
--- NOTE | 2020-05-17 06:30 | PN ---
Progress Note (short form) - Note Progress Note: Coverage for Dr. Analisa Solis Chief Complaint: Events noted, notes reviewed, resting in bed, denies any chest discomfort, denies dyspnea History of Present Illness: Seen and examined on telemetry. Events noted, notes reviewed, resting in bed, denies any chest discomfort, denies dyspnea Medications: Current Medications Generic Name Dose Route Start Last Admin Trade Name Freq PRN Reason Stop Dose Admin Acetaminophen 650 mg 05/12/20 16:03 05/17/20 00:15 Tylenol - PO 650 mg Q6H PRN Administration PAIN LEVEL 6-10 Budesonide/Formoterol Fumarate 2 puff 05/12/20 10:00 05/16/20 21:21 Symbicort 160/4.5mcg - IH 2 puff BID STORM Administration Calcium Carbonate/Cholecalciferol 1 tab 05/12/20 10:00 05/16/20 09:40 Os-Altaf 500+D - PO 1 tab DAILY [facility] Administration Cholecalciferol 600 unit 05/12/20 10:00 05/16/20 21:21 Vitamin D3 Oral Solution - PO 600 unit BID STORM Administration Citalopram Hydrobromide 40 mg 05/12/20 22:00 05/16/20 21:20 Celexa - PO 40 mg HS STORM Administration Ezetimibe 10 mg 05/12/20 22:00 05/16/20 21:20 Zetia - PO 10 mg HS STORM Administration Folic Acid 1 mg 05/12/20 10:00 05/16/20 09:40 Folic Acid - PO 1 mg DAILY ST[facility] Administration Gabapentin 1,200 mg 05/12/20 22:00 05/16/20 21:19 Neurontin - PO 1,200 mg HS STORM Administration Lactobacillus Acidophilus 1 tab 05/13/20 10:30 05/16/20 09:40 Bacid - PO 1 tab DAILY [facility]ORM Administration Loratadine 10 mg 05/12/20 10:00 05/16/20 09:40 Claritin - PO 10 mg DAILY STORM Administration Losartan Potassium 50 mg 05/13/20 10:22 05/16/20 09:40 Cozaar - PO 50 mg DAILY ST[facility] Administration Montelukast Sodium 10 mg 05/12/20 22:00 05/16/20 21:20 Singulair - PO 10 mg HS STORM Administration Multivitamins/Minerals/Vitamin C 1 tab 05/12/20 10:00 05/16/20 09:40 Tab-A-Vit - PO 1 tab DAILY STORM Administration (Simvastatin 40 Mg) 40 mg 05/16/20 23:15 05/16/20 23:47 Patient's Own PO 40 mg Medication (Non- HS STORM Administration Formulary) Pantoprazole Sodium 40 mg 05/12/20 07:00 05/17/20 06:00 Protonix - PO 40 mg Q12H STORM Administration Potassium Chloride 20 meq 05/12/20 10:00 05/16/20 09:40 K-Dur - PO 20 meq DAILY STORM Administration Rivaroxaban 20 mg 05/12/20 18:00 05/16/20 18:00 Xarelto PO 20 mg DAILY@1800 ST[facility] Administration Solifenacin 5 mg 05/13/20 15:00 05/16/20 14:49 Vesicare - PO 5 mg DAILY@1500 ST[facility] Administration Vancomycin HCl 125 mg 05/15/20 18:00 05/17/20 05:54 Vancomycin Oral Solution PO 125 mg Q6HPO STORM Administration Review of Systems Constitutional: denies Chills or Fever Respiratory: denies: Dyspnea Cardiovascular: As noted above Gastrointestinal: denies Nausea, Vomiting, Diarrhea, Constipation or Abdominal Discomfort Genitourinary: No Symptoms Reported Musculoskeletal: No Symptoms Reported Vital Signs: Last Vital Signs Temp Pulse Resp BP Pulse Ox 97.7 F 48 L 18 107/60 96 05/17/20 05:38 05/17/20 05:38 05/17/20 05:38 05/17/20 05:38 05/17/20 05:38 Intake & Output 05/14/20 05/15/20 05/16/20 05/17/20 23:59 23:59 23:59 23:59 Intake Total 421 403 5628 240 Balance 025 049 8363 240 Weight 237 lb Neck: Supple Negative JVD Respiratory: Diminished Breath Sounds Bilaterally- Bases Cardiovascular: S1 S2 Regular Rate Rhythm Gastrointestinal: Soft Benign Normal Bowel Sounds Ext: Negative Edema Labs: CBC, BMP 05/14/20 06:13 05/14/20 06:13 Hepatic Panel Total Bilirubin 0.6 mg/dL (0.2-1) 05/14/20 06:13 AST 24 U/L (15-37) 05/14/20 06:13 ALT 38 U/L (13-61) 05/14/20 06:13 Alkaline Phosphatase 62 U/L (45-117) 05/14/20 06:13 Albumin 3.4 g/dl (3.4-5.0) 05/14/20 06:13 INR, PTT INR 1.05 (0.83-1.09) 05/11/20 18:50 Assessment/Plan ASSESSMENT: 1. Chest pain syndrome coronary artery disease angina pectoris to be considered in the differential diagnosis 2. Diastolic left ventricular dysfunction with clinical class 0-I [place] [employer] classification left ventricular failure, currently compensated/euvolemic 3. Hypertensive cardiovascular disease 4. Diabetes mellitus 5. Hypercholesterolemia 6. Obstructive sleep apnea highly suspected 7. History of benign positional vertigo 8. Recurrent diarrhea 9. Urinary tract infection 10. 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 Morbid obesity PLAN: 1. Continue Cozaar therapy 2. Continue Lasix therapy with close monitoring of electrolytes and renal function 3. Continue Lipitor and Zetia therapies 4. Continue Xarelto therapy for management of the above-noted Factor Leiden/factor V deficiency 5. As outlined in yesterday's note plan to proceed with pharmacologic Lexiscan myocardial perfusion imaging study this coming Monday for further evaluation of the above-noted presentation Sanjay Guzmán MD
[2020-05-17] MEDS: FOLIC ACID 1 MG TABLET (FP) PO SCH (09:21)
[2020-05-17] MEDS: CALCIUM 500MG/VIT-D 200 UNITS COMBO TABLET (FP) PO SCH (09:21)
[2020-05-17] MEDS: LORATADINE 10 MG TABLET PO SCH (09:21)
[2020-05-17] MEDS: LOSARTAN POTASSIUM 50 MG TABLET (FP) PO SCH (09:21)
[2020-05-17] MEDS: LACTOBACILLUS ACIDOPHILUS 1 TABLET PO SCH (09:21)
[2020-05-17] MEDS: POTASSIUM CHLORIDE TABS 20 MEQ TABLET.ER (FP) PO SCH (09:21)
[2020-05-17] MEDS: MULTIVITAMINS (DAILY MVI) TABLET (FP) PO SCH (09:21)
[2020-05-17] MEDS: BUDESONIDE/FORMETEROL FUMARATE 160/4.5 mcg INHALER IH SCH ×2 (09:22→21:09)
[2020-05-17] MEDS: CHOLECALCIFEROL (VIT D SOLUTION) 400 UNIT/1 ML DROPS PO SCH ×2 (09:22→21:07)
[2020-05-17] MEDS ORDERED: PT OWN MED DRAWER 7, Y5N ONE (10:09)
--- NOTE | 2020-05-17 13:18 | PN ---
Physical Exam: SUBJECTIVE: Patient seen and examined Comfortable no chest pain no shortness of breath she is out of bed and ambulating. OBJECTIVE: Vital Signs Period Temp Pulse Resp BP Sys/Henley Pulse Ox Last 24 Hr 97.7 F-99.0 F 48-69 18-18 104-157/54-76 96-98 GENERAL: The patient is awake, alert, and fully oriented, in no acute distress. HEAD: Normal with no signs of trauma. EYES: PERRL, extraocular movements intact, sclera anicteric, conjunctiva clear. No ptosis. ENT: Ears normal, nares patent, oropharynx clear without exudates, moist mucous membranes. NECK: Trachea midline, full range of motion, supple. LUNGS: Breath sounds equal, clear to auscultation bilaterally, no wheezes, no crackles, no accessory muscle use. HEART: Regular rate and rhythm, S1, S2 without murmur, rub or gallop. ABDOMEN: Soft, nontender, nondistended, normoactive bowel sounds, no guarding, no rebound, no hepatosplenomegaly, no masses. EXTREMITIES: 2+ pulses, warm, well-perfused, no edema. NEUROLOGICAL: Cranial nerves II through XII grossly intact. Normal speech, gait not observed. PSYCH: Normal mood, normal affect. SKIN: Warm, dry, normal turgor, no rashes or lesions noted Active Medications Generic Name Dose Route Start Last Admin Trade Name Freq PRN Reason Stop Dose Admin Acetaminophen 650 mg 05/12/20 16:03 05/17/20 00:15 Tylenol - PO 650 mg Q6H PRN Administration PAIN LEVEL 6-10 Budesonide/Formoterol Fumarate 2 puff 05/12/20 10:00 05/17/20 09:22 Symbicort 160/4.5mcg - IH 2 puff BID STORM Administration Calcium Carbonate/Cholecalciferol 1 tab 05/12/20 10:00 05/17/20 09:21 Os-Altaf 500+D - PO 1 tab DAILY [facility]ORM Administration Cholecalciferol 600 unit 05/12/20 10:00 05/17/20 09:22 Vitamin D3 Oral Solution - PO 600 unit BID STORM Administration Citalopram Hydrobromide 40 mg 05/12/20 22:00 05/16/20 21:20 Celexa - PO 40 mg HS STORM Administration Ezetimibe 10 mg 05/12/20 22:00 05/16/20 21:20 Zetia - PO 10 mg HS STORM Administration Folic Acid 1 mg 05/12/20 10:00 05/17/20 09:21 Folic Acid - PO 1 mg DAILY STORM Administration Gabapentin 1,200 mg 05/12/20 22:00 05/16/20 21:19 Neurontin - PO 1,200 mg HS STORM Administration Lactobacillus Acidophilus 1 tab 05/13/20 10:30 05/17/20 09:21 Bacid - PO 1 tab DAILY [facility] Administration Loratadine 10 mg 05/12/20 10:00 05/17/20 09:21 Claritin - PO 10 mg DAILY STORM Administration Losartan Potassium 50 mg 05/13/20 10:22 05/17/20 09:21 Cozaar - PO 50 mg DAILY STORM Administration Montelukast Sodium 10 mg 05/12/20 22:00 05/16/20 21:20 Singulair - PO 10 mg HS STORM Administration Multivitamins/Minerals/Vitamin C 1 tab 05/12/20 10:00 05/17/20 09:21 Tab-A-Vit - PO 1 tab DAILY [facility]ORM Administration (Simvastatin 40 Mg) 40 mg 05/16/20 23:15 05/16/20 23:47 Patient's Own PO 40 mg Medication (Non- HS STORM Administration Formulary) Pantoprazole Sodium 40 mg 05/12/20 07:00 05/17/20 06:00 Protonix - PO 40 mg Q12H STORM Administration Potassium Chloride 20 meq 05/12/20 10:00 05/17/20 09:21 K-Dur - PO 20 meq DAILY STORM Administration Rivaroxaban 20 mg 05/12/20 18:00 05/16/20 18:00 Xarelto PO 20 mg DAILY@1800 STORM Administration Solifenacin 5 mg 05/13/20 15:00 05/16/20 14:49 Vesicare - PO 5 mg DAILY@1500 STORM Administration Vancomycin HCl 125 mg 05/15/20 18:00 05/17/20 11:46 Vancomycin Oral Solution PO 125 mg Q6HPO STORM Administration ASSESSMENT/PLAN: 60 female admitted with the following problems Functional diarrhea r/o CAD Vertigo UTI ACS ruled out HFpEF HLD DM morbid obesity Suspected ELISA Factor V Leiden def on AC Hypokalemia DM neuropathy Depression Plan: FInished abx regimen Lexiscan stress test Monday morning, NPO Monday night, cont. tele Cont. probiotics Cont. Xarelto for Cardiology following ID following, continue Vanco DVT ppx: Xarelto Visit type - Emergency Visit Emergency Visit: Yes ED Registration Date: 05/12/20 Care time: The patient presented to the Emergency Department on the above date and was hospitalized for further evaluation of their emergent condition. - New Patient This patient is new to me today: Yes Date on this admission: 05/17/20 - Critical Care Critical Care patient: No - Discharge Referral Referred to [facility] No
[2020-05-17] MEDS: SOLIFENACIN SUCCINATE 5 MG TAB PO SCH (14:54)
[2020-05-17] MEDS: RIVAROXABAN 20 MG TABLET PO SCH (18:12)
--- NOTE | 2020-05-17 19:46 | PN ---
Progress Note, Physician History of Present Illness: Pt is alert, without complaints. Diarrhea resolved, no abd pain. - Current Medication List Current Medications: Active Medications Acetaminophen (Tylenol -) 650 mg PO Q6H PRN PRN Reason: PAIN LEVEL 6-10 Last Admin: 05/17/20 16:22 Dose: 650 mg Documented by: Budesonide/Formoterol Fumarate (Symbicort 160/4.5mcg -) 2 puff IH BID [facility] Last Admin: 05/17/20 09:22 Dose: 2 puff Documented by: Calcium Carbonate/Cholecalciferol (Os-Altaf 500+D -) 1 tab PO DAILY [facility] Last Admin: 05/17/20 09:21 Dose: 1 tab Documented by: Cholecalciferol (Vitamin D3 Oral Solution -) 600 unit PO BID [facility] Last Admin: 05/17/20 09:22 Dose: 600 unit Documented by: Citalopram Hydrobromide (Celexa -) 40 mg PO [facility] Last Admin: 05/16/20 21:20 Dose: 40 mg Documented by: Ezetimibe (Zetia -) 10 mg PO [facility] Last Admin: 05/16/20 21:20 Dose: 10 mg Documented by: Folic Acid (Folic Acid -) 1 mg PO DAILY [facility] Last Admin: 05/17/20 09:21 Dose: 1 mg Documented by: Gabapentin (Neurontin -) 1,200 mg PO [facility] Last Admin: 05/16/20 21:19 Dose: 1,200 mg Documented by: Lactobacillus Acidophilus (Bacid -) 1 tab PO DAILY [facility] Last Admin: 05/17/20 09:21 Dose: 1 tab Documented by: Loratadine (Claritin -) 10 mg PO DAILY [facility] Last Admin: 05/17/20 09:21 Dose: 10 mg Documented by: Losartan Potassium (Cozaar -) 50 mg PO DAILY [facility] Last Admin: 05/17/20 09:21 Dose: 50 mg Documented by: Montelukast Sodium (Singulair -) 10 mg PO [facility] Last Admin: 05/16/20 21:20 Dose: 10 mg Documented by: Multivitamins/Minerals/Vitamin C (Tab-A-Vit -) 1 tab PO DAILY [facility] Last Admin: 05/17/20 09:21 Dose: 1 tab Documented by: (Simvastatin 40 Mg) Patient's Own Medication (Non- Formulary) 40 mg PO HS [facility] Last Admin: 05/16/20 23:47 Dose: 40 mg Documented by: Pantoprazole Sodium (Protonix -) 40 mg PO Q12H [facility] Last Admin: 05/17/20 18:12 Dose: 40 mg Documented by: Potassium Chloride (K-Dur -) 20 meq PO DAILY [facility] Last Admin: 05/17/20 09:21 Dose: 20 meq Documented by: Rivaroxaban (Xarelto) 20 mg PO DAILY@1800 [facility] Last Admin: 05/17/20 18:12 Dose: 20 mg Documented by: Solifenacin (Vesicare -) 5 mg PO DAILY@1500 [facility] Last Admin: 05/17/20 14:54 Dose: 5 mg Documented by: Vancomycin HCl (Vancomycin Oral Solution) 125 mg PO Q6HPO [facility] Last Admin: 05/17/20 18:12 Dose: 125 mg Documented by: - Objective Vital Signs: Vital Signs Temperature 97.8 F 05/17/20 14:00 Pulse Rate 57 L 05/17/20 14:00 Respiratory Rate 18 05/17/20 09:00 Blood Pressure 151/87 05/17/20 14:00 O2 Sat by Pulse Oximetry (%) 98 05/17/20 09:00 Constitutional: Yes: No Distress, Calm Eyes: Yes: Conjunctiva Clear Cardiovascular: Yes: Regular Rate and Rhythm Gastrointestinal: Yes: Normal Bowel Sounds, Soft, Abdomen, Obese Genitourinary: Yes: WNL Integumentary: Yes: WNL Neurological: Yes: Alert, Oriented Labs: CBC, BMP 05/14/20 06:13 05/14/20 06:13 INR, PTT INR 1.05 (0.83-1.09) 05/11/20 18:50 Microbiology 05/12/20 10:00 Stool Salmonella/Shigella Culture - Final Mr S Aureus 05/12/20 10:00 Stool Campylobacter Culture - Final NO GROWTH OF CAMPYLOBACTER SPECIES OBTAINED 05/12/20 10:00 Stool Yersinia Culture - Final NO GROWTH OF YERSINIA SPECIES OBTAINED 05/12/20 10:00 Stool Vibrio Culture - Final NO GROWTH OF VIBRIO SPECIES OBTAINED 05/12/20 10:00 Stool Escherichia coli 0157 Culture - Final NO GROWTH OF E COLI 0157 OBTAINED Problem List - Problems (1) Chest pain Code(s): R07.9 - CHEST PAIN, UNSPECIFIED Qualifiers: Chest pain type: unspecified Qualified Code(s): R07.9 - Chest pain, unspecified (2) Diarrhea Code(s): R19.7 - DIARRHEA, UNSPECIFIED Qualifiers: Diarrhea type: unspecified type Qualified Code(s): R19.7 - Diarrhea, unspecified (3) Emesis Code(s): R11.10 - VOMITING, UNSPECIFIED Qualifiers: Vomiting type: unspecified Vomiting Intractability: unspecified Nausea presence: with nausea Qualified Code(s): R11.2 - Nausea with vomiting, unspecified Assessment/Plan Diarrhea resolved - continue Vancomycin PO for at least 10 days - pt stable, afebrile at this time
[2020-05-17] MEDS: GABAPENTIN 400 MG CAPSULE PO SCH (21:05)
[2020-05-17] MEDS: CITALOPRAM HYDROBROMIDE 20 MG TABLET PO SCH (21:06)
[2020-05-17] MEDS: EZETIMIBE 10 MG TABLET (FP) PO SCH (21:06)
[2020-05-17] MEDS: MONTELUKAST NA 10 MG TABLET PO SCH (21:06)
[2020-05-17] MEDS: SIMVASTATIN 40 MG PO SCH (21:08)
[2020-05-18] MEDS: VANCOMYCIN 250 MG/5 ML ORAL SOLUTION PO SCH ×2 (01:02→06:31)
[2020-05-18] MEDS: PANTOPRAZOLE 40 MG TABLET PO SCH ×2 (06:31→18:06)
[2020-05-18] MEDS: CHOLECALCIFEROL (VIT D SOLUTION) 400 UNIT/1 ML DROPS PO SCH ×2 (10:00→22:06)
[2020-05-18] MEDS: BUDESONIDE/FORMETEROL FUMARATE 160/4.5 mcg INHALER IH SCH ×2 (12:00→22:07)
--- NOTE | 2020-05-18 12:15 | PN ---
Progress Note, Physician - Current Medication List Current Medications: Active Medications Acetaminophen (Tylenol -) 650 mg PO Q6H PRN PRN Reason: PAIN LEVEL 6-10 Last Admin: 05/17/20 16:22 Dose: 650 mg Documented by: Budesonide/Formoterol Fumarate (Symbicort 160/4.5mcg -) 2 puff IH BID [facility] Last Admin: 05/17/20 21:09 Dose: 2 puff Documented by: Calcium Carbonate/Cholecalciferol (Os-Altaf 500+D -) 1 tab PO DAILY [facility] Last Admin: 05/17/20 09:21 Dose: 1 tab Documented by: Cholecalciferol (Vitamin D3 Oral Solution -) 600 unit PO BID [facility] Last Admin: 05/17/20 21:07 Dose: 600 unit Documented by: Citalopram Hydrobromide (Celexa -) 40 mg PO [facility] Last Admin: 05/17/20 21:06 Dose: 40 mg Documented by: Ezetimibe (Zetia -) 10 mg PO [facility] Last Admin: 05/17/20 21:06 Dose: 10 mg Documented by: Folic Acid (Folic Acid -) 1 mg PO DAILY [facility] Last Admin: 05/17/20 09:21 Dose: 1 mg Documented by: Gabapentin (Neurontin -) 1,200 mg PO [facility] Last Admin: 05/17/20 21:05 Dose: 1,200 mg Documented by: Lactobacillus Acidophilus (Bacid -) 1 tab PO DAILY [facility] Last Admin: 05/17/20 09:21 Dose: 1 tab Documented by: Loratadine (Claritin -) 10 mg PO DAILY [facility] Last Admin: 05/17/20 09:21 Dose: 10 mg Documented by: Losartan Potassium (Cozaar -) 50 mg PO DAILY [facility] Last Admin: 05/17/20 09:21 Dose: 50 mg Documented by: Montelukast Sodium (Singulair -) 10 mg PO [facility] Last Admin: 05/17/20 21:06 Dose: 10 mg Documented by: Multivitamins/Minerals/Vitamin C (Tab-A-Vit -) 1 tab PO DAILY [facility] Last Admin: 05/17/20 09:21 Dose: 1 tab Documented by: (Simvastatin 40 Mg) Patient's Own Medication (Non- Formulary) 40 mg PO [facility] Last Admin: 05/17/20 21:08 Dose: 40 mg Documented by: Pantoprazole Sodium (Protonix -) 40 mg PO Q12H [facility] Last Admin: 05/18/20 06:31 Dose: 40 mg Documented by: Potassium Chloride (K-Dur -) 20 meq PO DAILY [facility] Last Admin: 05/17/20 09:21 Dose: 20 meq Documented by: Rivaroxaban (Xarelto) 20 mg PO DAILY@1800 [facility] Last Admin: 05/17/20 18:12 Dose: 20 mg Documented by: Solifenacin (Vesicare -) 5 mg PO DAILY@1500 [facility] Last Admin: 05/17/20 14:54 Dose: 5 mg Documented by: - Objective Vital Signs: Vital Signs Temperature 97.9 F 05/18/20 10:00 Pulse Rate 52 L 05/18/20 10:00 Respiratory Rate 22 H 05/18/20 10:00 Blood Pressure 166/78 05/18/20 10:00 O2 Sat by Pulse Oximetry (%) 95 05/18/20 10:00 Labs: CBC, BMP 05/14/20 06:13 05/14/20 06:13 INR, PTT INR 1.05 (0.83-1.09) 05/11/20 18:50
--- NOTE | 2020-05-18 12:46 | PN ---
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 She states she has vertigo and has been taking more meclizine than usual for it. Today, she felt vertigo so bad that she though she would pass out, so she called 911. She describes it as having her head in a box and it spinning round and round. She also complains of 2 weeks of watery diarrhea 6-7 times per day; 4 days of NBNB emesis 4-5 times per day; intermittent burning chest pain/tightness for 2 weeks that is worse with change in position, not exertional, not relieved by rest, not worse with deep inspiration; left sided headache different from her usual headache without phono/photophobia; elevated BP this morning to 195. She also states she was recently treated for a UTI but did not finish the course of Macrobid. She came to the ER two weeks prior with similar vertigo symptoms and chest pain. Pt says she had a stress MIBI 2 years ago that was negative for ischemia. 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 Boston - Current Medication List Current Medications: Active Medications Acetaminophen (Tylenol -) 650 mg PO Q6H PRN PRN Reason: PAIN LEVEL 6-10 Last Admin: 05/17/20 16:22 Dose: 650 mg Documented by: Budesonide/Formoterol Fumarate (Symbicort 160/4.5mcg -) 2 puff IH BID [facility] Last Admin: 05/17/20 21:09 Dose: 2 puff Documented by: Calcium Carbonate/Cholecalciferol (Os-Altaf 500+D -) 1 tab PO DAILY [facility] Last Admin: 05/17/20 09:21 Dose: 1 tab Documented by: Cholecalciferol (Vitamin D3 Oral Solution -) 600 unit PO BID [facility] Last Admin: 05/17/20 21:07 Dose: 600 unit Documented by: Citalopram Hydrobromide (Celexa -) 40 mg PO [facility] Last Admin: 05/17/20 21:06 Dose: 40 mg Documented by: Ezetimibe (Zetia -) 10 mg PO [facility] Last Admin: 05/17/20 21:06 Dose: 10 mg Documented by: Folic Acid (Folic Acid -) 1 mg PO DAILY [facility] Last Admin: 05/17/20 09:21 Dose: 1 mg Documented by: Gabapentin (Neurontin -) 1,200 mg PO [facility] Last Admin: 05/17/20 21:05 Dose: 1,200 mg Documented by: Lactobacillus Acidophilus (Bacid -) 1 tab PO DAILY [facility] Last Admin: 05/17/20 09:21 Dose: 1 tab Documented by: Loratadine (Claritin -) 10 mg PO DAILY [facility] Last Admin: 05/17/20 09:21 Dose: 10 mg Documented by: Losartan Potassium (Cozaar -) 50 mg PO DAILY [facility] Last Admin: 05/17/20 09:21 Dose: 50 mg Documented by: Montelukast Sodium (Singulair -) 10 mg PO [facility] Last Admin: 05/17/20 21:06 Dose: 10 mg Documented by: Multivitamins/Minerals/Vitamin C (Tab-A-Vit -) 1 tab PO DAILY [facility] Last Admin: 05/17/20 09:21 Dose: 1 tab Documented by: (Simvastatin 40 Mg) Patient's Own Medication (Non- Formulary) 40 mg PO [facility] Last Admin: 05/17/20 21:08 Dose: 40 mg Documented by: Pantoprazole Sodium (Protonix -) 40 mg PO Q12H [facility] Last Admin: 05/18/20 06:31 Dose: 40 mg Documented by: Potassium Chloride (K-Dur -) 20 meq PO DAILY [facility] Last Admin: 05/17/20 09:21 Dose: 20 meq Documented by: Rivaroxaban (Xarelto) 20 mg PO DAILY@1800 [facility] Last Admin: 05/17/20 18:12 Dose: 20 mg Documented by: Solifenacin (Vesicare -) 5 mg PO DAILY@1500 [facility] Last Admin: 05/17/20 14:54 Dose: 5 mg Documented by: - Objective Vital Signs: Vital Signs Temperature 97.9 F 05/18/20 10:00 Pulse Rate 52 L 05/18/20 10:00 Respiratory Rate 22 H 05/18/20 10:00 Blood Pressure 166/78 05/18/20 10:00 O2 Sat by Pulse Oximetry (%) 95 05/18/20 10:00 Eyes: Yes: WNL, Conjunctiva Clear, EOM Intact HENT: Yes: WNL, Atraumatic, Normocephalic Neck: Yes: WNL, Supple, Trachea Midline Cardiovascular: Yes: WNL, Regular Rate and Rhythm Respiratory: Yes: WNL, Regular, CTA Bilaterally Gastrointestinal: Yes: WNL, Normal Bowel Sounds Genitourinary: Yes: WNL Musculoskeletal: Yes: WNL Extremities: Yes: WNL Edema: No Integumentary: Yes: WNL Neurological: Yes: WNL, Alert, Oriented ...Motor Strength: WNL Psychiatric: Yes: WNL Labs: CBC, BMP 05/14/20 06:13 05/14/20 06:13 INR, PTT INR 1.05 (0.83-1.09) 05/11/20 18:50 Problem List - Problems (1) Chest pain Code(s): R07.9 - CHEST PAIN, UNSPECIFIED Qualifiers: Chest pain type: unspecified Qualified Code(s): R07.9 - Chest pain, unspecified (2) Diarrhea Code(s): R19.7 - DIARRHEA, UNSPECIFIED Qualifiers: Diarrhea type: unspecified type Qualified Code(s): R19.7 - Diarrhea, unspecified (3) Emesis Code(s): R11.10 - VOMITING, UNSPECIFIED Qualifiers: Vomiting type: unspecified Vomiting Intractability: unspecified Nausea presence: with nausea Qualified Code(s): R11.2 - Nausea with vomiting, unspecified (4) Vertigo Code(s): R42 - DIZZINESS AND GIDDINESS (5) Laceration Code(s): T14.8 - OTHER INJURY OF UNSPECIFIED BODY REGION * DO NOT USE * (6) Tooth fracture Code(s): S02.5XXA - FRACTURE OF TOOTH (TRAUMATIC), INIT FOR CLOS FX Assessment/Plan Vertigo Diarrhea; hypomagnesemia UTI Burning chest pain; 2 prior ER visits in the past month for similar symptoms (the first after having nasal sinus surgery); TNI consistently < 0.02 Multiple CAD risks diastolic CHF HTN HLD DM morbid obesity ?sleep apnea TNI < 0.02 Plan: Replete magnesium. COVID negative BNP 430; CXR clear; no JVP antibiotics per ID Avoid dehydration On atorvastatin + Zetia for elevated LDL. On losartan + furosemide (she had been on Cardura, but would not continue this medication due to increased risk of CHF); f/u BP serially F/u BUN/Cr and electrolytes. Is and Os, daily weight. Dietary consult (pt requests help with weight/DM). sleep studies to r/o sleep apnea MIBI stress test in AM.
[2020-05-18] MEDS: CALCIUM 500MG/VIT-D 200 UNITS COMBO TABLET (FP) PO SCH (16:20)
[2020-05-18] MEDS: POTASSIUM CHLORIDE TABS 20 MEQ TABLET.ER (FP) PO SCH (16:20)
[2020-05-18] MEDS: MULTIVITAMINS (DAILY MVI) TABLET (FP) PO SCH (16:20)
[2020-05-18] MEDS: FOLIC ACID 1 MG TABLET (FP) PO SCH (16:21)
[2020-05-18] MEDS: LORATADINE 10 MG TABLET PO SCH (16:22)
[2020-05-18] MEDS: LACTOBACILLUS ACIDOPHILUS 1 TABLET PO SCH (16:22)
[2020-05-18] MEDS: LOSARTAN POTASSIUM 50 MG TABLET (FP) PO SCH (16:22)
[2020-05-18] MEDS: SOLIFENACIN SUCCINATE 5 MG TAB PO SCH (16:24)
[2020-05-18] MEDS: RIVAROXABAN 20 MG TABLET PO SCH (18:06)
[2020-05-18] MEDS ORDERED: PT OWN MED DRAWER 7, Y5N ONE (18:22)
--- NOTE | 2020-05-18 21:46 | PN ---
Physical Exam: SUBJECTIVE: Patient seen and examined. Pt. as well as roomate MsAmanda Duran, were highly unsatisfied with today's materials tech. Asked specifically for me to report today's incident. Pt. denies any acute complaints and is awaitng stress test. OBJECTIVE: Vital Signs Period Temp Pulse Resp BP Sys/Henley Pulse Ox Last 24 Hr 97.8 F-98.1 F 48-60 18-22 128-172/60-78 95-99 GENERAL: The patient is awake, alert, and fully oriented, in no acute distress. HEAD: Normal with no signs of trauma. EYES: Sclera anicteric, conjunctiva clear. ENT: Dry mucous membranes. NECK: Trachea midline, full range of motion, supple. LUNGS: Breath sounds equal, clear to auscultation bilaterally anteriorly, no wheezes, no crackles, no accessory muscle use. HEART: Regular rate and rhythm, S1, S2 without murmur, rub or gallop. ABDOMEN: Soft, morbidly obese, diffuse tenderness? to palpation in lower abdomen, nondistended, normoactive bowel sounds, no guarding, no rebound EXTREMITIES: 2+ dorsal pedal pulses, warm, well-perfused, no edema. NEUROLOGICAL: Normal speech, gait not observed. PSYCH: Normal mood, normal affect. SKIN: Warm, dry Active Medications Generic Name Dose Route Start Last Admin Trade Name Freq PRN Reason Stop Dose Admin Acetaminophen 650 mg 05/12/20 16:03 05/17/20 16:22 Tylenol - PO 650 mg Q6H PRN Administration PAIN LEVEL 6-10 Budesonide/Formoterol Fumarate 2 puff 05/12/20 10:00 05/18/20 12:00 Symbicort 160/4.5mcg - IH Not Given BID STORM Calcium Carbonate/Cholecalciferol 1 tab 05/12/20 10:00 05/18/20 16:20 Os-Altaf 500+D - PO 1 tab DAILY STORM Administration Cholecalciferol 600 unit 05/12/20 10:00 05/18/20 10:00 Vitamin D3 Oral Solution - PO Not Given BID STORM Citalopram Hydrobromide 40 mg 05/12/20 22:00 05/17/20 21:06 Celexa - PO 40 mg HS STORM Administration Ezetimibe 10 mg 05/12/20 22:00 05/17/20 21:06 Zetia - PO 10 mg HS STORM Administration Folic Acid 1 mg 05/12/20 10:00 05/18/20 16:21 Folic Acid - PO 1 mg DAILY STORM Administration Gabapentin 1,200 mg 05/12/20 22:00 05/17/20 21:05 Neurontin - PO 1,200 mg HS STORM Administration Lactobacillus Acidophilus 1 tab 05/13/20 10:30 05/18/20 16:22 Bacid - PO 1 tab DAILY STORM Administration Loratadine 10 mg 05/12/20 10:00 05/18/20 16:22 Claritin - PO 10 mg DAILY STORM Administration Losartan Potassium 50 mg 05/13/20 10:22 05/18/20 16:22 Cozaar - PO 50 mg DAILY STORM Administration Montelukast Sodium 10 mg 05/12/20 22:00 05/17/20 21:06 Singulair - PO 10 mg HS STORM Administration Multivitamins/Minerals/Vitamin C 1 tab 05/12/20 10:00 05/18/20 16:20 Tab-A-Vit - PO 1 tab DAILY STORM Administration (Simvastatin 40 Mg) 40 mg 05/16/20 23:15 05/17/20 21:08 Patient's Own PO 40 mg Medication (Non- HS STORM Administration Formulary) Pantoprazole Sodium 40 mg 05/12/20 07:00 05/18/20 18:06 Protonix - PO 40 mg Q12H STORM Administration Potassium Chloride 20 meq 05/12/20 10:00 05/18/20 16:20 K-Dur - PO 20 meq DAILY STORM Administration Rivaroxaban 20 mg 05/12/20 18:00 05/18/20 18:06 Xarelto PO 20 mg DAILY@1800 STORM Administration Solifenacin 5 mg 05/13/20 15:00 05/18/20 16:24 Vesicare - PO 5 mg DAILY@1500 STORM Administration ASSESSMENT/PLAN: Pt. is a 60 y.o. F w/ PMHx. of Factor V Leiden deficiency, DVT, PE (2016- on Xarelto), chronic LE swelling, HTN, HLD, GERD, hiatal hernia, asthma, morbid obesity, vertigo, and recent admission for non-radiating burning chest pain/pressure (04/28/20) presented with dizziness, high home BP of 195/90, 2 weeks of light-yellow diarrhea, and 3-4 days of clear liquid vomiting and was admitted for r/o ACS. #Chest Pain- resolved - possibly 2/2 GERD - ACS ruled out - troponin Neg x 2 - EKG without ST or T wave changes - avoid QTc prolonging meds - continue home PPI - Cardiology consult appreciated--> Stress test when more stable, f//u with CArdiology as to inpatient vs. outpatient. #Vomiting and Diarrhea -resolved - possibly 2/2 incomplete antibiotic regimen - will r/o infectious etiology as Pt. on Nexium 40mg BID at home for GERD. Pt. states she was told she had gastritis in the past when she had EGD over 10 years ago. - EGD from 12/2018 and UGI series from 04/21/2020 in chart. EGD largely unremarkable however UGI did show gastric dysmotility. - f/u Cdiff PCR, stool ova and parasites, H. Pylori stool antigen, Altaf protectin, and occult blood - Soft diet - CT abdomen/pelvis with contrast showed fatty liver but no acute pathology - c/w Bacid - Pt. currently taking Protonix 40mg BID, unclear why as last EGD did not show significant pathology to warrant such a dose. PPI use increases the likelihood of developing GI infections such as C.Diff. #Generalized pain/tenderness- resolved - ofirmev PRN - CT A/P w/ contrast reviewed #Factor V Leiden #Hx. of DVT and PE #HTN #HLD #MO - continue home meds EXCEPT Losartan which has been held today and decreased to 50 mg for tomorrow because of hypotension. PRN Gabapentin has also been discontinued. - dietary consult appreciated #PPX - DVT: xarelto - GI: pantoprazole #FEN - No IVF - Monitor and replete as needed - Sodium Controlled diet #Dispo: Telemetry Visit type - Emergency Visit Emergency Visit: Yes ED Registration Date: 05/12/20 Care time: The patient presented to the Emergency Department on the above date and was hospitalized for further evaluation of their emergent condition. - New Patient This patient is new to me today: No - Critical Care Critical Care patient: No - Discharge Referral Referred to [facility] Med [facility].C[facility] No ATTENDING PHYSICIAN STATEMENT I saw and evaluated the patient. I reviewed the resident's note and discussed the case with the resident. I agree with the resident's findings and plan as documented. SUBJECTIVE: OBJECTIVE: ASSESSMENT AND PLAN:
[2020-05-18] MEDS: CITALOPRAM HYDROBROMIDE 20 MG TABLET PO SCH (22:06)
[2020-05-18] MEDS: GABAPENTIN 400 MG CAPSULE PO SCH (22:06)
[2020-05-18] MEDS: EZETIMIBE 10 MG TABLET (FP) PO SCH (22:07)
[2020-05-18] MEDS: SIMVASTATIN 40 MG PO SCH (22:07)
[2020-05-18] MEDS: MONTELUKAST NA 10 MG TABLET PO SCH (22:07)
[2020-05-19] MEDS: PANTOPRAZOLE 40 MG TABLET PO SCH ×2 (06:52→18:57)
[2020-05-19] MEDS: ACETAMINOPHEN 325 MG TABLET (FP) PO PRN ×2 (06:52→17:07)
[2020-05-19] MEDS: CHOLECALCIFEROL (VIT D SOLUTION) 400 UNIT/1 ML DROPS PO SCH (10:00)
[2020-05-19] MEDS: BUDESONIDE/FORMETEROL FUMARATE 160/4.5 mcg INHALER IH SCH (10:00)
[2020-05-19] MEDS ORDERED: PT OWN MED DRAWER 7, Y5N ONE ×5 (10:22→18:51)
[2020-05-19] MEDS ORDERED: REGADENOSON 0.4 MG/5 ML PRE-FILLED SYRINGE IVPUSH ONE ×2 (10:30→13:15)
[2020-05-19 10:32] VITALS: BP 152/84; PULSE 52; TEMP 98
--- NOTE | 2020-05-19 12:59 | PN ---
Teaching Attending Note Name of Resident: Yury England ATTENDING PHYSICIAN STATEMENT I saw and evaluated the patient. I reviewed the resident's note and discussed the case with the resident. I agree with the resident's findings and plan as documented. SUBJECTIVE: seen and examined at bedside. Patient with no complaints. Pending nuclear str ess test OBJECTIVE Last Vital Signs Temp Pulse Resp BP Pulse Ox 98 F 52 L 18 152/84 97 05/19/20 10:05/19/20 10:05/19/20 10:05/19/20 10:05/19/20 10:00 PE: Per resident note Labs/Imaging: reviewed ASSESSMENT/PLAN 60-year-old male with past medical history of factor V Leiden deficiency, DVT/PE, chronic lower extremity swelling, morbid obesity, vertigo presented with nausea, vomiting, diarrhea, and burning chest pain, admitted for rule out ACS #Chest pain: Resolved Troponins negative Pending stress test Cardiology on board: Appreciate [place] #Vomiting and diarrhea: Resolved Possibly secondary to antibiotics versus gastric motility disorder C. difficile, H. pylori, calprotectin negative #History of DVT/hypercoagulable state Continue Xarelto
--- NOTE | 2020-05-19 13:36 | PN ---
Progress Note, Physician - Current Medication List Current Medications: Active Medications Acetaminophen (Tylenol -) 650 mg PO Q6H PRN PRN Reason: PAIN LEVEL 6-10 Last Admin: 05/19/20 06:52 Dose: 650 mg Documented by: Budesonide/Formoterol Fumarate (Symbicort 160/4.5mcg -) 2 puff IH BID [facility] Last Admin: 05/18/20 22:07 Dose: 2 puff Documented by: Calcium Carbonate/Cholecalciferol (Os-Altaf 500+D -) 1 tab PO DAILY [facility] Last Admin: 05/18/20 16:20 Dose: 1 tab Documented by: Cholecalciferol (Vitamin D3 Oral Solution -) 600 unit PO BID [facility] Last Admin: 05/18/20 22:06 Dose: 600 unit Documented by: Citalopram Hydrobromide (Celexa -) [address] [facility] Last Admin: 05/18/20 22:06 Dose: 40 mg Documented by: Ezetimibe (Zetia -) [address] [facility] Last Admin: 05/18/20 22:07 Dose: 10 mg Documented by: Folic Acid (Folic Acid -) 1 mg PO DAILY [facility] Last Admin: 05/18/20 16:21 Dose: 1 mg Documented by: Gabapentin (Neurontin -) 1,[address] [facility] Last Admin: 05/18/20 22:06 Dose: 1,200 mg Documented by: Lactobacillus Acidophilus (Bacid -) 1 tab PO DAILY [facility] Last Admin: 05/18/20 16:22 Dose: 1 tab Documented by: Loratadine (Claritin -) 10 mg PO DAILY [facility] Last Admin: 05/18/20 16:22 Dose: 10 mg Documented by: Losartan Potassium (Cozaar -) 50 mg PO DAILY [facility] Last Admin: 05/18/20 16:22 Dose: 50 mg Documented by: Montelukast Sodium (Singulair -) [address] [facility] Last Admin: 05/18/20 22:07 Dose: 10 mg Documented by: Multivitamins/Minerals/Vitamin C (Tab-A-Vit -) 1 tab PO DAILY [facility] Last Admin: 05/18/20 16:20 Dose: 1 tab Documented by: (Simvastatin 40 Mg) Patient's Own Medication (Non- Formulary) [address] [facility] Last Admin: 05/18/20 22:07 Dose: 40 mg Documented by: Pantoprazole Sodium (Protonix -) 40 mg PO Q12H [facility] Last Admin: 05/19/20 06:52 Dose: 40 mg Documented by: Potassium Chloride (K-Dur -) 20 meq PO DAILY [facility] Last Admin: 05/18/20 16:20 Dose: 20 meq Documented by: Rivaroxaban (Xarelto) 20 mg PO DAILY@1800 [facility] Last Admin: 05/18/20 18:06 Dose: 20 mg Documented by: Solifenacin (Vesicare -) 5 mg PO DAILY@1500 [facility] Last Admin: 05/18/20 16:24 Dose: 5 mg Documented by: - Objective Vital Signs: Vital Signs Temperature 98 F 05/19/20 10:00 Pulse Rate 52 L 05/19/20 10:00 Respiratory Rate 18 05/19/20 10:00 Blood Pressure 152/84 05/19/20 10:00 O2 Sat by Pulse Oximetry (%) 97 05/19/20 10:00 Labs: CBC, BMP 05/14/20 06:13 05/14/20 06:13 INR, PTT INR 1.05 (0.83-1.09) 05/11/20 18:50
--- NOTE | 2020-05-19 13:40 | PN ---
Teaching Attending Note Name of Resident: Yury England ATTENDING PHYSICIAN STATEMENT I saw and evaluated the patient. I reviewed the resident's note and discussed the case with the resident. I agree with the resident's findings and plan as documented. SUBJECTIVE: Patient seen and examined at bedside, for stress test today as per Cardiology, currently NPO, awaiting spot for stress test. VSS. OBJECTIVE: GENERAL: The patient is awake, alert, and fully oriented, in no acute distress. HEAD: Normal with no signs of trauma. EYES: Sclera anicteric, conjunctiva clear. ENT: Dry mucous membranes. NECK: Trachea midline, full range of motion, supple. LUNGS: Breath sounds equal, clear to auscultation bilaterally anteriorly, no wheezes, no crackles, no accessory muscle use. HEART: Regular rate and rhythm, S1, S2 without murmur, rub or gallop. ABDOMEN: Soft, morbidly obese, diffuse tenderness? to palpation in lower abdomen, nondistended, normoactive bowel sounds, no guarding, no rebound EXTREMITIES: 2+ dorsal pedal pulses, warm, well-perfused, no edema. NEUROLOGICAL: Normal speech, gait not observed. PSYCH: Normal mood, normal affect. SKIN: Warm, dryashes or lesions noted Vital Signs (72 hours) 05/16/20 05/16/20 05/16/20 14:00 19:59 21:00 Temperature 99.0 F 98.8 F Pulse Rate 69 54 L Respiratory 18 Rate Blood Pressure 157/76 141/64 O2 Sat by Pulse 97 97 Oximetry (%) 05/17/20 05/17/20 05/17/20 01:02 05:38 09:00 Temperature 98.2 F 97.7 F Pulse Rate 51 L 48 L 56 L Respiratory 18 18 18 Rate Blood Pressure 104/54 L 107/60 129/76 O2 Sat by Pulse 96 98 Oximetry (%) 05/17/20 05/17/20 05/17/20 14:00 21:00 22:00 Temperature 97.8 F 97.9 F Pulse Rate 57 L 50 L Respiratory 18 18 Rate Blood Pressure 151/87 133/60 O2 Sat by Pulse 97 97 Oximetry (%) 05/18/20 05/18/20 05/18/20 02:00 06:00 09:00 Temperature 97.8 F Pulse Rate 48 L 60 Respiratory 20 18 22 H Rate Blood Pressure 147/73 128/73 O2 Sat by Pulse 96 99 95 Oximetry (%) 05/18/20 05/18/20 05/18/20 10:00 14:15 18:06 Temperature 97.9 F 98.0 F 98.1 F Pulse Rate 52 L 51 L 55 L Respiratory 22 H 18 20 Rate Blood Pressure 166/78 137/76 172/69 H O2 Sat by Pulse 95 97 Oximetry (%) 05/18/20 05/18/20 05/19/20 20:22 22:00 02:00 Temperature 98.5 F 98.1 F Pulse Rate 53 L 49 L Respiratory 16 20 Rate Blood Pressure 128/61 113/48 L O2 Sat by Pulse 95 95 92 L Oximetry (%) 05/19/20 05/19/20 05/19/20 06:00 09:00 10:00 Temperature 98 F Pulse Rate 56 L 52 L Respiratory 18 18 Rate Blood Pressure 147/57 L 152/84 O2 Sat by Pulse 96 97 97 Oximetry (%) Microbiology 05/12/20 10:00 Stool Salmonella/Shigella Culture - Final Mr S Aureus 05/12/20 10:00 Stool Campylobacter Culture - Final NO GROWTH OF CAMPYLOBACTER SPECIES OBTAINED 05/12/20 10:00 Stool Yersinia Culture - Final NO GROWTH OF YERSINIA SPECIES OBTAINED 05/12/20 10:00 Stool Vibrio Culture - Final NO GROWTH OF VIBRIO SPECIES OBTAINED 05/12/20 10:00 Stool Escherichia coli 0157 Culture - Final NO GROWTH OF E COLI 0157 OBTAINED Home Medications Medication Instructions Recorded Calcium Carb/Vitamin D3/Vit K1 1 each PO DAILY 07/29/14 [Calcium + D Soft Chewable Tab] Cetirizine HCl [Zyrtec -] 10 mg PO DAILY 07/29/14 Cholecalciferol (Vitamin D3) 600 unit PO BID 07/29/14 [Vitamin D3] Citalopram Hydrobromide [Celexa -] 40 mg PO HS 07/29/14 Esomeprazole Mag Trihydrate 40 mg PO BID 07/29/14 [Nexium] Fluticasone/Salmeterol [Advair Hfa 2 inh PO BID 07/29/14 230-21 Mcg Inhaler] Folic Acid - 1 mg PO DAILY 07/29/14 Gabapentin [Neurontin] 1,200 mg PO HS 07/29/14 Gabapentin [Neurontin] 300 mg PO TID PRN 07/29/14 Montelukast Na [Singulair -] 10 mg PO HS 07/29/14 Multivitamins [Multivit ([facility] 1 tab PO DAILY 07/29/14 Formulary)] Simvastatin [Zocor -] 40 mg PO HS 07/29/14 Meclizine HCl [Antivert -] 12.5 mg PO TID PRN 07/01/16 Rivaroxaban [Xarelto -] 20 mg PO DAILY 07/01/16 Ezetimibe [Zetia -] 10 mg PO DAILY 04/28/20 Furosemide [Lasix -] 20 mg PO DAILY 04/28/20 Losartan Potassium 100 mg PO DAILY 04/28/20 Oxybutynin Chloride [Oxybutynin 10 mg PO DAILY 05/11/20 Chloride ER] Potassium Chloride [Klor-Con M20] 20 meq PO DAILY 05/11/20 Lactobacillus Acidophilus [Bacid -] 1 tab PO DAILY #14 tab 05/14/20 Nitrofurantoin Monohyd/M-Cryst 100 mg PO BID #14 capsule 05/14/20 [Macrobid -] Current Medications Generic Name Dose Route Start Last Admin Trade Name Freq PRN Reason Stop Dose Admin Acetaminophen 650 mg 05/12/20 16:03 05/19/20 06:52 Tylenol - PO 650 mg Q6H PRN Administration PAIN LEVEL 6-10 Budesonide/Formoterol Fumarate 2 puff 05/12/20 10:00 05/18/20 22:07 Symbicort 160/4.5mcg - IH 2 puff BID STORM Administration Calcium Carbonate/Cholecalciferol 1 tab 05/12/20 10:00 05/18/20 16:20 Os-Altaf 500+D - PO 1 tab DAILY STORM Administration Cholecalciferol 600 unit 05/12/20 10:00 05/18/20 22:06 Vitamin D3 Oral Solution - PO 600 unit BID STORM Administration Citalopram Hydrobromide 40 mg 05/12/20 22:00 05/18/20 22:06 Celexa - PO 40 mg HS STORM Administration Ezetimibe 10 mg 05/12/20 22:00 05/18/20 22:07 Zetia - PO 10 mg HS STORM Administration Folic Acid 1 mg 05/12/20 10:00 05/18/20 16:21 Folic Acid - PO 1 mg DAILY STORM Administration Gabapentin 1,200 mg 05/12/20 22:00 05/18/20 22:06 Neurontin - PO 1,200 mg HS STORM Administration Lactobacillus Acidophilus 1 tab 05/13/20 10:30 05/18/20 16:22 Bacid - PO 1 tab DAILY STORM Administration Loratadine 10 mg 05/12/20 10:00 05/18/20 16:22 Claritin - PO 10 mg DAILY STORM Administration Losartan Potassium 50 mg 05/13/20 10:22 05/18/20 16:22 Cozaar - PO 50 mg DAILY STORM Administration Montelukast Sodium 10 mg 05/12/20 22:00 05/18/20 22:07 Singulair - PO 10 mg HS STORM Administration Multivitamins/Minerals/Vitamin C 1 tab 05/12/20 10:00 05/18/20 16:20 Tab-A-Vit - PO 1 tab DAILY STORM Administration (Simvastatin 40 Mg) 40 mg 05/16/20 23:15 05/18/20 22:07 Patient's Own PO 40 mg Medication (Non- HS STORM Administration Formulary) Pantoprazole Sodium 40 mg 05/12/20 07:00 05/19/20 06:52 Protonix - PO 40 mg Q12H STORM Administration Potassium Chloride 20 meq 05/12/20 10:00 05/18/20 16:20 K-Dur - PO 20 meq DAILY STORM Administration Rivaroxaban 20 mg 05/12/20 18:00 05/18/20 18:06 Xarelto PO 20 mg DAILY@1800 STORM Administration Solifenacin 5 mg 05/13/20 15:00 05/18/20 16:24 Vesicare - PO 5 mg DAILY@1500 STORM Administration ASSESSMENT AND PLAN: 60 F Functional diarrhea r/o CAD (scheduled for stress test today) Vertigo UTI ACS ruled out HFpEF HLD DM morbid obesity Suspected ELISA Factor V Leiden def on AC Hypokalemia DM neuropathy Depression Plan: S/p abx regimen, PO Vanco DC due to diarrhea resolving Cardiology requesting stress test Today, cont. tele Cont. probiotics Cont. Xarelto for AC Cardiology following ID following DVT ppx: Xarelto
[2020-05-19] MEDS: LACTOBACILLUS ACIDOPHILUS 1 TABLET PO SCH (14:31)
[2020-05-19] MEDS: LOSARTAN POTASSIUM 50 MG TABLET (FP) PO SCH (14:32)
[2020-05-19] MEDS: LORATADINE 10 MG TABLET PO SCH (14:32)
[2020-05-19] MEDS: FOLIC ACID 1 MG TABLET (FP) PO SCH (14:32)
[2020-05-19] MEDS: POTASSIUM CHLORIDE TABS 20 MEQ TABLET.ER (FP) PO SCH (14:33)
[2020-05-19] MEDS: MULTIVITAMINS (DAILY MVI) TABLET (FP) PO SCH (14:33)
[2020-05-19] MEDS: CALCIUM 500MG/VIT-D 200 UNITS COMBO TABLET (FP) PO SCH (14:33)
[2020-05-19] MEDS: VANCOMYCIN 250 MG/5 ML ORAL SOLUTION PO SCH ×2 (14:34→17:08)
[2020-05-19] MEDS: SOLIFENACIN SUCCINATE 5 MG TAB PO SCH (14:36)
--- NOTE | 2020-05-19 15:06 | PN ---
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 She states she has vertigo and has been taking more meclizine than usual for it. Today, she felt vertigo so bad that she though she would pass out, so she called 911. She describes it as having her head in a box and it spinning round and round. She also complains of 2 weeks of watery diarrhea 6-7 times per day; 4 days of NBNB emesis 4-5 times per day; intermittent burning chest pain/tightness for 2 weeks that is worse with change in position, not exertional, not relieved by rest, not worse with deep inspiration; left sided headache different from her usual headache without phono/photophobia; elevated BP this morning to 195. She also states she was recently treated for a UTI but did not finish the course of Macrobid. She came to the ER two weeks prior with similar vertigo symptoms and chest pain. Pt says she had a stress MIBI 2 years ago that was negative for ischemia. 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 Boston - Current Medication List Current Medications: Active Medications Acetaminophen (Tylenol -) 650 mg PO Q6H PRN PRN Reason: PAIN LEVEL 6-10 Last Admin: 05/19/20 06:52 Dose: 650 mg Documented by: Budesonide/Formoterol Fumarate (Symbicort 160/4.5mcg -) 2 puff IH BID [facility] Last Admin: 05/19/20 10:00 Dose: Not Given Documented by: Calcium Carbonate/Cholecalciferol (Os-Altaf 500+D -) 1 tab PO DAILY [facility] Last Admin: 05/19/20 14:33 Dose: 1 tab Documented by: Cholecalciferol (Vitamin D3 Oral Solution -) 600 unit PO BID [facility] Last Admin: 05/19/20 10:00 Dose: Not Given Documented by: Citalopram Hydrobromide (Celexa -) 40 mg PO [facility] Last Admin: 08/31/20 22:06 Dose: 40 mg Documented by: Ezetimibe (Zetia -) 10 mg PO HS [facility] Last Admin: 05/18/20 22:07 Dose: 10 mg Documented by: Folic Acid (Folic Acid -) 1 mg PO DAILY [facility] Last Admin: 05/19/20 14:32 Dose: 1 mg Documented by: Gabapentin (Neurontin -) 1,200 mg PO [facility] Last Admin: 05/18/20 22:06 Dose: 1,200 mg Documented by: Lactobacillus Acidophilus (Bacid -) 1 tab PO DAILY [facility] Last Admin: 05/19/20 14:31 Dose: 1 tab Documented by: Loratadine (Claritin -) 10 mg PO DAILY [facility] Last Admin: 05/19/20 14:32 Dose: 10 mg Documented by: Losartan Potassium (Cozaar -) 50 mg PO DAILY [facility] Last Admin: 05/19/20 14:32 Dose: 50 mg Documented by: Montelukast Sodium (Singulair -) 10 mg PO [facility] Last Admin: 05/18/20 22:07 Dose: 10 mg Documented by: Multivitamins/Minerals/Vitamin C (Tab-A-Vit -) 1 tab PO DAILY [facility] Last Admin: 05/19/20 14:33 Dose: 1 tab Documented by: (Simvastatin 40 Mg) Patient's Own Medication (Non- Formulary) 40 mg PO [facility] Last Admin: 05/18/20 22:07 Dose: 40 mg Documented by: Pantoprazole Sodium (Protonix -) 40 mg PO Q12H [facility] Last Admin: 05/19/20 06:52 Dose: 40 mg Documented by: Potassium Chloride (K-Dur -) 20 meq PO DAILY [facility] Last Admin: 05/19/20 14:33 Dose: 20 meq Documented by: Rivaroxaban (Xarelto) 20 mg PO DAILY@1800 [facility] Last Admin: 05/18/20 18:06 Dose: 20 mg Documented by: Solifenacin (Vesicare -) 5 mg PO DAILY@1500 [facility] Last Admin: 05/19/20 14:36 Dose: 5 mg Documented by: Vancomycin HCl (Vancomycin Oral Solution) 125 mg PO Q6HPO [facility] Last Admin: 05/19/20 14:34 Dose: 125 mg Documented by: - Objective Vital Signs: Vital Signs Temperature 98 F 05/19/20 10:00 Pulse Rate 52 L 05/19/20 10:00 Respiratory Rate 18 05/19/20 10:00 Blood Pressure 152/84 05/19/20 10:00 O2 Sat by Pulse Oximetry (%) 97 05/19/20 10:00 Eyes: Yes: WNL, Conjunctiva Clear, EOM Intact HENT: Yes: WNL, Atraumatic, Normocephalic Neck: Yes: WNL, Supple, Trachea Midline Cardiovascular: Yes: WNL, Regular Rate and Rhythm Respiratory: Yes: WNL, Regular, CTA Bilaterally Gastrointestinal: Yes: WNL, Normal Bowel Sounds Genitourinary: Yes: WNL Musculoskeletal: Yes: WNL Extremities: Yes: WNL Edema: No Integumentary: Yes: WNL Neurological: Yes: WNL, Alert, Oriented ...Motor Strength: WNL Psychiatric: Yes: WNL Labs: CBC, BMP 05/14/20 06:13 05/14/20 06:13 INR, PTT INR 1.05 (0.83-1.09) 05/11/20 18:50 Problem List - Problems (1) Chest pain Code(s): R07.9 - CHEST PAIN, UNSPECIFIED Qualifiers: Chest pain type: unspecified Qualified Code(s): R07.9 - Chest pain, unspecified (2) Diarrhea Code(s): R19.7 - DIARRHEA, UNSPECIFIED Qualifiers: Diarrhea type: unspecified type Qualified Code(s): R19.7 - Diarrhea, unspecified (3) Emesis Code(s): R11.10 - VOMITING, UNSPECIFIED Qualifiers: Vomiting type: unspecified Vomiting Intractability: unspecified Nausea presence: with nausea Qualified Code(s): R11.2 - Nausea with vomiting, unspecified (4) Vertigo Code(s): R42 - DIZZINESS AND GIDDINESS (5) Laceration Code(s): T14.8 - OTHER INJURY OF UNSPECIFIED BODY REGION * DO NOT USE * (6) Tooth fracture Code(s): S02.5XXA - FRACTURE OF TOOTH (TRAUMATIC), INIT FOR CLOS FX Assessment/Plan Vertigo Diarrhea; hypomagnesemia UTI Burning chest pain; 2 prior ER visits in the past month for similar symptoms (the first after having nasal sinus surgery); TNI consistently < 0.02 Multiple CAD risks diastolic CHF HTN HLD DM morbid obesity ?sleep apnea TNI < 0.02 Plan: COVID negative BNP 430; CXR clear; no JVP antibiotics per ID On atorvastatin + Zetia for elevated LDL. On losartan + furosemide (she had been on Cardura, but would not continue this medication due to increased risk of CHF); f/u BP serially F/u BUN/Cr and electrolytes. Is and Os, daily weight. Dietary consult (pt requests help with weight/DM). sleep studies to r/o sleep apnea MIBI stress test negative for ischemia. D/c telemetry. From cardiac point of view could be followed as outpatient.
[2020-05-19] MEDS: RIVAROXABAN 20 MG TABLET PO SCH (17:08)
== END 2020-05-19 19:03 | disposition home or self-care (01) | DRG 394 ==
LOC: JER 15:54 → JERBED 20:55 → OBSVTOIN 05-12 03:21 → J4W 05-12 09:37
PROVIDERS: ADMIT Internal Medicine; ATTEND Internal Medicine
DX: K52.1 Toxic gastroenteritis and colitis (principal); Z68.41 Body mass index [BMI] 40.0-44.9, adult; I50.32 Chronic diastolic (congestive) heart failure; D68.59 Other primary thrombophilia; N39.0 Urinary tract infection, site not specified; R07.89 Other chest pain; R11.2 Nausea with vomiting, unspecified; I45.10 Unspecified right bundle-branch block; E78.5 Hyperlipidemia, unspecified; K21.9 Gastro-esophageal reflux disease without esophagitis; K44.9 Diaphragmatic hernia without obstruction or gangrene; R55 Syncope and collapse; R51 Headache; E11.40 Type 2 diabetes mellitus with diabetic neuropathy, unspecified; E66.01 Morbid (severe) obesity due to excess calories; I44.0 Atrioventricular block, first degree; I11.0 Hypertensive heart disease with heart failure; K76.0 Fatty (change of) liver, not elsewhere classified; E87.6 Hypokalemia; F41.8 Other specified anxiety disorders; J45.909 Unspecified asthma, uncomplicated; K59.8 Other specified functional intestinal disorders; M17.0 Bilateral primary osteoarthritis of knee; Z86.718 Personal history of other venous thrombosis and embolism; Z86.711 Personal history of pulmonary embolism
CPT/HCPCS: 36415; 70450-TC; 71046-TC-FY; 74177-TC; 78452-TC; 80053; 81003; 82550; 82962; 83735; 83993; 84100; 84484; 85025; 85610; 85730; 87045; 87046; 87077; 87177; 87186; 87209; 87338; 93005; 93010; 93017; 99285-25; A9502; G0378; J0131; J2785; U0003

== ENCOUNTER 2020-09-05 22:32 | Inpatient (IN) | payer OTHER ==
[2020-09-05 22:41] VITALS: BMI 44.2
[2020-09-05] MEDS ORDERED: MECLIZINE HCL 12.5 MG TABLET PO ONE (23:28)
[2020-09-05] MEDS ORDERED: MECLIZINE HCL 12.5 MG TABLET ONE (23:38)
[2020-09-06] MEDS ORDERED: ACETAMINOPHEN 1000 MG/100 ML VIAL (NON FORMULARY) IVPB ONE (00:03)
[2020-09-06] MEDS ORDERED: LACTATED RINGERS SOLUTION 1000 ML INFUS.BAG IV ONE (00:04)
[2020-09-06 00:18] LABS: BASO % 1.1 % (0-2.0); EOS % 2.9 % (0-4.5); HEMATOCRIT 36.8 % (32.4-45.2); HEMOGLOBIN 12.2 GM/dL (10.7-15.3); LYMPH % 17.4 % (8-40); MCH 28.4 pg (25.7-33.7); MCHC 33.1 g/dl (32.0-36.0); MEAN CELL VOLUME 85.8 fl (80-96); MEAN PLT VOLUME 9.7 fl (7.5-11.1); MONO % 7.2 % (3.8-10.2); NEUT % 71.4 % (42.8-82.8); PLATELET COUNT 215 K/MM3 (134-434); RBC 4.29 M/mm3 (3.60-5.2); RDW 13.1 % (11.6-15.6); WHITE BLOOD COUNT 9.5 K/mm3 (4.0-10.0)
[2020-09-06 00:21] LABS: INR 0.97 (0.83-1.09); PROTHROMBIN TIME (PATIENT) 11.9 SEC (9.7-13.0)
[2020-09-06 00:23] LABS: ACTIVATED PTT 33.4 SECONDS (25.2-36.5)
[2020-09-06] MEDS ORDERED: ACETAMINOPHEN INJECTION 100 ML IVPB ONE (00:30)
[2020-09-06 00:38] LABS: CHLORIDE 104 mmol/L (98-107); POTASSIUM 4.1 mmol/L (3.5-5.1); SODIUM 138 mmol/L (136-145)
[2020-09-06 00:40] LABS: CALCIUM 8.7 mg/dL (8.5-10.1)
[2020-09-06 00:41] LABS: ALBUMIN 3.7 g/dl (3.4-5.0); ANION GAP 9 MMOL/L (8-16); BLOOD UREA NITROGEN 18.6 mg/dL (7-18); CO2 26 mmol/L (21-32); GLUCOSE,RANDOM 182 mg/dL (74-106)
[2020-09-06 00:44] LABS: CREATININE 0.9 mg/dL (0.55-1.3); SGOT/AST 37 U/L (15-37); SGPT/ALT 46 U/L (13-61)
[2020-09-06 00:45] LABS: BILIRUBIN,TOTAL 0.4 mg/dL (0.2-1); TOT PROT 7.4 g/dl (6.4-8.2)
[2020-09-06 00:47] LABS: ALK PHOS 72 U/L (45-117)
[2020-09-06] MEDS ORDERED: NITROGLYCERIN SUBLINGUAL 1/150 0.4 MG TAB SL ONE (05:00)
[2020-09-06] MEDS ORDERED: morphine CARPU-JECT 4 MG/1 ML DISP.SYRIN IVPUSH ONE (05:25)
[2020-09-06] MEDS ORDERED: morphine SULFATE 4 MG/ML VIAL ONE (05:39)
[2020-09-06] MEDS ORDERED: LOSARTAN POTASSIUM 50 MG TABLET ONE ×2 (09:23→09:31)
[2020-09-06] MEDS ORDERED: APIXABAN 5 MG TABLET ONE ×2 (09:23→09:31)
[2020-09-06] MEDS ORDERED: FUROSEMIDE 40 MG TABLET (FP) ONE ×2 (09:23→09:31)
[2020-09-06] MEDS: FUROSEMIDE 20 MG TABLET (FP) PO SCH (09:36)
[2020-09-06] MEDS: LOSARTAN POTASSIUM 50 MG TABLET PO SCH (09:36)
[2020-09-06] MEDS: APIXABAN 5 MG TABLET PO SCH ×2 (09:36→21:06)
[2020-09-06 09:45] LABS: HEMATOCRIT 36.5 % (32.4-45.2); HEMOGLOBIN 11.8 GM/dL (10.7-15.3); MCHC 32.3 g/dl (32.0-36.0); MEAN CELL VOLUME 86.7 fl (80-96); MEAN PLT VOLUME 9.9 fl (7.5-11.1); PLATELET COUNT 206 K/MM3 (134-434); RBC 4.21 M/mm3 (3.60-5.2); RDW 13.5 % (11.6-15.6); WHITE BLOOD COUNT 6.9 K/mm3 (4.0-10.0)
[2020-09-06 09:56] LABS: INR 0.97 (0.83-1.09); PROTHROMBIN TIME (PATIENT) 11.7 SEC (9.7-13.0)
[2020-09-06 09:59] LABS: ACTIVATED PTT 37.3 SECONDS (25.2-36.5)
[2020-09-06 10:03] LABS: POTASSIUM 4.2 mmol/L (3.5-5.1)
[2020-09-06 10:06] LABS: ALBUMIN 3.4 g/dl (3.4-5.0); CALCIUM 8.4 mg/dL (8.5-10.1); MAGNESIUM 2.1 mg/dL (1.8-2.4)
[2020-09-06 10:09] LABS: CREATININE 0.7 mg/dL (0.55-1.3)
[2020-09-06 10:10] LABS: BILIRUBIN,TOTAL 0.4 mg/dL (0.2-1); PHOSPHOROUS 4.1 mg/dL (2.5-4.9); TOT PROT 6.8 g/dl (6.4-8.2)
[2020-09-06] MEDS: ACETAMINOPHEN 325 MG TABLET (FP) PO PRN (18:51)
[2020-09-06] MEDS: ATORVASTATIN CA 20 MG TABLET (FP) PO SCH (21:06)
[2020-09-06] MEDS: MONTELUKAST NA 10 MG TABLET PO SCH (21:06)
[2020-09-07] MEDS ORDERED: MECLIZINE HCL 12.5 MG TABLET PO PRN (08:57)
[2020-09-07] MEDS: APIXABAN 5 MG TABLET PO SCH ×2 (09:52→21:19)
[2020-09-07] MEDS: LOSARTAN POTASSIUM 50 MG TABLET PO SCH (09:52)
[2020-09-07] MEDS: LORATADINE 10 MG TABLET PO SCH (12:45)
[2020-09-07] MEDS: FUROSEMIDE 20 MG TABLET (FP) PO SCH (12:45)
[2020-09-07] MEDS ORDERED: ALBUTEROL SO4 HFA INHALER IH PRN (13:15)
[2020-09-07] MEDS: BUDESONIDE/FORMETEROL FUMARATE 160/4.5 mcg INHALER IH SCH ×2 (14:45→21:18)
[2020-09-07] MEDS ORDERED: SODIUM CHLORIDE 250 ML IV STA (16:14)
[2020-09-07] MEDS: ACETAMINOPHEN 325 MG TABLET (FP) PO PRN (21:19)
[2020-09-07] MEDS: MONTELUKAST NA 10 MG TABLET PO SCH (21:19)
[2020-09-07] MEDS: ATORVASTATIN CA 20 MG TABLET (FP) PO SCH (21:19)
[2020-09-08] MEDS ORDERED: oxyCODONE HCL 5 MG TABLET PO ONE (00:23)
[2020-09-08] MEDS: LORATADINE 10 MG TABLET PO SCH (10:44)
[2020-09-08] MEDS: APIXABAN 5 MG TABLET PO SCH ×2 (10:44→21:06)
[2020-09-08] MEDS: FUROSEMIDE 20 MG TABLET (FP) PO SCH (10:44)
[2020-09-08] MEDS: LOSARTAN POTASSIUM 50 MG TABLET PO SCH (10:44)
[2020-09-08] MEDS: BUDESONIDE/FORMETEROL FUMARATE 160/4.5 mcg INHALER IH SCH ×2 (10:45→21:07)
[2020-09-08] MEDS: ACETAMINOPHEN 325 MG TABLET (FP) PO PRN ×2 (15:38→22:01)
[2020-09-08] MEDS: ATORVASTATIN CA 20 MG TABLET (FP) PO SCH (21:06)
[2020-09-08] MEDS: MONTELUKAST NA 10 MG TABLET PO SCH (21:07)
[2020-09-09] MEDS: ACETAMINOPHEN 325 MG TABLET (FP) PO PRN ×2 (02:01→09:39)
[2020-09-09] MEDS: LORATADINE 10 MG TABLET PO SCH (09:37)
[2020-09-09] MEDS: APIXABAN 5 MG TABLET PO SCH (09:37)
[2020-09-09] MEDS: FUROSEMIDE 20 MG TABLET (FP) PO SCH (09:37)
[2020-09-09] MEDS: LOSARTAN POTASSIUM 50 MG TABLET PO SCH ×2 (09:38→09:55)
[2020-09-09] MEDS: BUDESONIDE/FORMETEROL FUMARATE 160/4.5 mcg INHALER IH SCH (09:39)
[2020-09-09 13:11] VITALS: BP 110/71; PULSE 54; TEMP 98.5
== END 2020-09-09 15:30 | disposition home or self-care (01) | DRG 313 ==
LOC: JER 22:32 → JERBED 09-06 04:48 → OBSVTOIN 09-06 06:14 → J6WEST-2 09-06 18:09
PROVIDERS: ADMIT Internal Medicine; ATTEND Student in an Organized Health Care Education/Training Program
DX: R07.89 Other chest pain (principal); D68.51 Activated protein C resistance; Z68.41 Body mass index [BMI] 40.0-44.9, adult; I50.30 Unspecified diastolic (congestive) heart failure; I11.0 Hypertensive heart disease with heart failure; E78.5 Hyperlipidemia, unspecified; K21.9 Gastro-esophageal reflux disease without esophagitis; J45.909 Unspecified asthma, uncomplicated; R42 Dizziness and giddiness; K44.9 Diaphragmatic hernia without obstruction or gangrene; R91.8 Other nonspecific abnormal finding of lung field; I45.10 Unspecified right bundle-branch block; I44.0 Atrioventricular block, first degree; I95.1 Orthostatic hypotension; E66.01 Morbid (severe) obesity due to excess calories; R59.1 Generalized enlarged lymph nodes; F41.8 Other specified anxiety disorders; R51.9 Headache, unspecified; M17.0 Bilateral primary osteoarthritis of knee; Z86.718 Personal history of other venous thrombosis and embolism; Z86.14 Personal history of Methicillin resistant Staphylococcus aureus infection
CPT/HCPCS: 36415; 70450-TC; 71045-TC-FY; 71275-TC; 80053; 82164; 82550; 83735; 84100; 84484; 85025; 85027; 85610; 85730; 93005; 93010; 93306-TC; 97116-GP; 97162-GP; 99285-25; C9803; G0378; J0131; Q9967; U0003

== ENCOUNTER 2020-10-01 18:07 | Emergency (ER) | payer OTHER ==
[2020-10-01 18:37] VITALS: BMI 49.6
[2020-10-01] MEDS ORDERED: ALBUTEROL SO4 HFA INHALER IH ONE ×2 (19:35→21:55)
[2020-10-01] MEDS ORDERED: ACETAMINOPHEN 1000 MG/100 ML VIAL (NON FORMULARY) IVPB ONE (19:35)
[2020-10-01] MEDS ORDERED: ONDANSETRON 4 MG/2 ML VIAL IVPUSH ONE (19:35)
[2020-10-01] MEDS ORDERED: FAMOTIDINE 20 MG/50 ML IVPB 20 MG/50 ML MG IVPB ONE ×2 (20:08→22:45)
[2020-10-01] MEDS ORDERED: ONDANSETRON 4 MG/2 ML VIAL ONE ×2 (21:55→22:30)
[2020-10-01] MEDS ORDERED: ACETAMINOPHEN INJECTION 100 ML IVPB ONE (21:55)
[2020-10-01 22:41] LABS: BASO % 0.4 % (0-2.0); EOS % 0.1 % (0-4.5); HEMATOCRIT 38.4 % (32.4-45.2); LYMPH % 29.7 % (8-40); MCHC 33.9 g/dl (32.0-36.0); MEAN CELL VOLUME 82.6 fl (80-96); MEAN PLT VOLUME 9.5 fl (7.5-11.1); MONO % 11.9 % (3.8-10.2); NEUT % 57.9 % (42.8-82.8); PLATELET COUNT 140 K/MM3 (134-434); RBC 4.65 M/mm3 (3.60-5.2); RDW 13.3 % (11.6-15.6); WHITE BLOOD COUNT 3.8 K/mm3 (4.0-10.0)
[2020-10-01] MEDS: ASPIRIN 325 MG TABLET PO ONE ×2 (22:42→23:08)
[2020-10-01] MEDS ORDERED: ASPIRIN 81 MG CHEWABLE TABLETS ONE (22:44)
[2020-10-01 22:48] LABS: INR 1.12 (0.83-1.09); PROTHROMBIN TIME (PATIENT) 13.7 SEC (9.7-13.0)
[2020-10-01 22:51] LABS: ACTIVATED PTT 30.2 SECONDS (25.2-36.5)
[2020-10-01 23:05] LABS: CHLORIDE 105 mmol/L (98-107); POTASSIUM 3.5 mmol/L (3.5-5.1); SODIUM 141 mmol/L (136-145)
[2020-10-01 23:07] LABS: CALCIUM 8.3 mg/dL (8.5-10.1)
[2020-10-01 23:09] LABS: ALBUMIN 3.5 g/dl (3.4-5.0); ANION GAP 10 MMOL/L (8-16); CO2 26 mmol/L (21-32); GLUCOSE,RANDOM 91 mg/dL (74-106)
[2020-10-01 23:11] LABS: CREATININE 0.7 mg/dL (0.55-1.3)
[2020-10-01 23:12] LABS: SGOT/AST 46 U/L (15-37); SGPT/ALT 51 U/L (13-61)
[2020-10-01 23:13] LABS: BILIRUBIN,DIRECT 0.3 mg/dL (0.0-0.2); TOT PROT 7.4 g/dl (6.4-8.2)
[2020-10-01 23:15] LABS: ALK PHOS 60 U/L (45-117)
[2020-10-01] MEDS ORDERED: BAMLANIVIMAB 700 MG in SODIUM CHLORIDE 180 ML IVPB ONE (23:29)
[2020-10-02 02:29] VITALS: TEMP 98.9
[2020-10-02] MEDS ORDERED: ONDANSETRON 4 MG/2 ML VIAL ONE (05:49)
[2020-10-02] MEDS ORDERED: ONDANSETRON 4 MG/2 ML VIAL IVPUSH ONE (06:03)
[2020-10-02] MEDS ORDERED: SODIUM CHLORIDE 0.9% 500 ML INFUS.BAG IV ONE (06:03)
[2020-10-02 10:40] VITALS: BP 144/73; PULSE 78
== END 2020-10-02 10:39 | disposition home or self-care (01) ==
LOC: JER 18:07
PROC: 3E0333Z Introduction of Anti-inflammatory into Peripheral Vein, Percutaneous Approach (ICD-10-PCS; principal; 2020-10-01)
PROC: 3E03329 Introduction of Other Anti-infective into Peripheral Vein, Percutaneous Approach (ICD-10-PCS; 2020-10-01)
PROC: 3E033GC Introduction of Other Therapeutic Substance into Peripheral Vein, Percutaneous Approach (ICD-10-PCS; 2020-10-01)
PROC: 3E033GC Introduction of Other Therapeutic Substance into Peripheral Vein, Percutaneous Approach (ICD-10-PCS; 2020-10-01)
DX: U07.1 COVID-19 (principal)
CPT/HCPCS: 36415; 71045-TC-FY; 80053; 82248; 82550; 82728; 83615; 84484; 85025; 85379; 85610; 85730; 86140; 87426; 93005; 93010; 99285-25; J0131; M0239; Q0239

== ENCOUNTER 2020-10-06 17:14 | Emergency (ER) | payer OTHER ==
[2020-10-06 17:47] VITALS: TEMP 99.5; BMI 44.2
[2020-10-06] MEDS ORDERED: ACETAMINOPHEN 1000 MG/100 ML VIAL (NON FORMULARY) IVPB ONE (18:22)
[2020-10-06] MEDS ORDERED: CEFTRIAXONE 1,000 MG in DEXTROSE 5%-WATER - 50 ML IVPB ONE (18:24)
[2020-10-06] MEDS ORDERED: SODIUM CHLORIDE 0.9% 500 ML INFUS.BAG IV ONE (18:24)
[2020-10-06] MEDS ORDERED: DEXAMETHASONE SOD PHOSPHATE 10 MG/1 ML VIAL IVPUSH ONE (18:24)
[2020-10-06] MEDS ORDERED: DEXAMETHASONE SOD PHOSPHATE 10 MG/1 ML VIAL ONE (18:29)
[2020-10-06] MEDS ORDERED: CEFTRIAXONE 1 GM/50 ML BAG ONE (18:29)
[2020-10-06] MEDS ORDERED: ACETAMINOPHEN INJECTION 100 ML IVPB ONE (18:29)
[2020-10-06 18:32] LABS: BASO % 0.1 % (0-2.0); HEMATOCRIT 40.1 % (32.4-45.2); HEMOGLOBIN 13.6 GM/dL (10.7-15.3); LYMPH % 3.2 % (8-40); MCH 27.6 pg (25.7-33.7); MEAN CELL VOLUME 81.3 fl (80-96); MEAN PLT VOLUME 9.4 fl (7.5-11.1); MONO % 6.3 % (3.8-10.2); NEUT % 90.4 % (42.8-82.8); PLATELET COUNT 244 K/MM3 (134-434); RBC 4.93 M/mm3 (3.60-5.2); RDW 13.2 % (11.6-15.6); WHITE BLOOD COUNT 16.8 K/mm3 (4.0-10.0)
[2020-10-06] MEDS ORDERED: MAGNESIUM SULF 50% (8.12 MEQ/2 ML-1 GM VIAL) IVPB ONE (18:35)
[2020-10-06 18:57] LABS: CHLORIDE 98 mmol/L (98-107); POTASSIUM 3.8 mmol/L (3.5-5.1); SODIUM 134 mmol/L (136-145)
[2020-10-06 19:00] LABS: CALCIUM 8.3 mg/dL (8.5-10.1)
[2020-10-06 19:01] LABS: ALBUMIN 3.4 g/dl (3.4-5.0); ANION GAP 10 MMOL/L (8-16); BLOOD UREA NITROGEN 10.5 mg/dL (7-18); CO2 26 mmol/L (21-32); GLUCOSE,RANDOM 163 mg/dL (74-106); MAGNESIUM 1.5 mg/dL (1.8-2.4)
[2020-10-06 19:02] LABS: INR 1.19 (0.83-1.09); PROTHROMBIN TIME (PATIENT) 14.3 SEC (9.7-13.0)
[2020-10-06] MEDS ORDERED: MAGNESIUM SULFATE IN WATER 2 GM/50 ML IVPB IVPB ONE (19:02)
[2020-10-06 19:04] LABS: ACTIVATED PTT 26.8 SECONDS (25.2-36.5); CREATININE 0.8 mg/dL (0.55-1.3); SGOT/AST 59 U/L (15-37); SGPT/ALT 63 U/L (13-61)
[2020-10-06 19:06] LABS: BILIRUBIN,TOTAL 2.6 mg/dL (0.2-1); TOT PROT 7.7 g/dl (6.4-8.2)
[2020-10-06 19:07] LABS: ALK PHOS 72 U/L (45-117)
[2020-10-06 20:03] VITALS: BP 156/71; PULSE 71
== END 2020-10-06 20:34 | disposition short-term general hospital (02) ==
LOC: JER 17:14
PROC: 3E0333Z Introduction of Anti-inflammatory into Peripheral Vein, Percutaneous Approach (ICD-10-PCS; principal; 2020-10-06)
PROC: 3E03329 Introduction of Other Anti-infective into Peripheral Vein, Percutaneous Approach (ICD-10-PCS; 2020-10-06)
PROC: 3E033GC Introduction of Other Therapeutic Substance into Peripheral Vein, Percutaneous Approach (ICD-10-PCS; 2020-10-06)
PROC: 3E033GC Introduction of Other Therapeutic Substance into Peripheral Vein, Percutaneous Approach (ICD-10-PCS; 2020-10-06)
PROC: 3E03329 Introduction of Other Anti-infective into Peripheral Vein, Percutaneous Approach (ICD-10-PCS; 2020-10-06)
DX: R22.0 Localized swelling, mass and lump, head (principal)
CPT/HCPCS: 36415; 70480-TC; 70486-TC; 70490-TC; 71045-TC-FY; 80053; 83605; 83735; 84484; 85025; 85610; 85730; 87040; 93005; 93010; 99285-25; J0131; J1100

== ENCOUNTER 2020-12-05 00:02 | Emergency (ER) | payer OTHER ==
[2020-12-05 00:33] VITALS: BMI 45.1
[2020-12-05] MEDS ORDERED: AMPICILLIN NA/SULBACTAM NA 3 GM in SODIUM CHLORIDE 100 ML IVPB ONE (02:30)
[2020-12-05] MEDS ORDERED: ACETAMINOPHEN 1000 MG/100 ML VIAL (NON FORMULARY) IVPB ONE (02:42)
[2020-12-05] MEDS ORDERED: DEXAMETHASONE SOD PHOSPHATE 10 MG/1 ML VIAL IVPUSH ONE (02:42)
[2020-12-05] MEDS ORDERED: DEXAMETHASONE SOD PHOSPHATE 10 MG/1 ML VIAL ONE (03:21)
[2020-12-05] MEDS ORDERED: ACETAMINOPHEN INJECTION 100 ML IVPB ONE (03:22)
[2020-12-05 03:28] LABS: BASO % 1.1 % (0-2.0); EOS % 2.3 % (0-4.5); HEMATOCRIT 38.5 % (32.4-45.2); HEMOGLOBIN 12.7 GM/dL (10.7-15.3); MCH 27.6 pg (25.7-33.7); MEAN CELL VOLUME 83.5 fl (80-96); MEAN PLT VOLUME 10.2 fl (7.5-11.1); MONO % 8.9 % (3.8-10.2); NEUT % 66.7 % (42.8-82.8); PLATELET COUNT 195 K/MM3 (134-434); RBC 4.62 M/mm3 (3.60-5.2); WHITE BLOOD COUNT 8.7 K/mm3 (4.0-10.0)
[2020-12-05 03:37] LABS: INR 1.01 (0.83-1.09); PROTHROMBIN TIME (PATIENT) 12.4 SEC (9.7-13.0)
[2020-12-05 03:39] LABS: ACTIVATED PTT 34.9 SECONDS (25.2-36.5)
[2020-12-05 03:44] LABS: POTASSIUM 4.2 mmol/L (3.5-5.1)
[2020-12-05 03:46] LABS: ALBUMIN 3.4 g/dl (3.4-5.0); BLOOD UREA NITROGEN 19.7 mg/dL (7-18); CALCIUM 9.7 mg/dL (8.5-10.1)
[2020-12-05 03:50] LABS: CREATININE 0.8 mg/dL (0.55-1.3)
[2020-12-05 03:51] LABS: BILIRUBIN,TOTAL 0.4 mg/dL (0.2-1); TOT PROT 7.2 g/dl (6.4-8.2)
[2020-12-05] MEDS ORDERED: CLINDAMYCIN 600MG PREMIX IVPB 600 MG/50 ML BAG IVPB ONE ×3 (05:49→06:16)
[2020-12-05] MEDS ORDERED: VANCOMYCIN 1 GM in D5W (PRE-DOCKED) 1,000 MG/250 ML IVPB ONE (05:51)
[2020-12-05] MEDS ORDERED: PIPERACILLIN/TAZOB 4.5 GM 4.5 GM in DEXTROSE 5%-WATER 100 ML IVPB ONE (05:52)
[2020-12-05] MEDS ORDERED: VANCOMYCIN 1 GRAM (PRE-DOCKED) 1,000 MG/250 ML BAG IVPB ONE (05:58)
[2020-12-05] MEDS ORDERED: PIPERACILLIN/TAZOB 4.5 GM 4.5 GM/100 ML BAG IVPB ONE (05:58)
[2020-12-05 07:38] VITALS: PULSE 77
[2020-12-05 07:42] VITALS: TEMP 98.7
[2020-12-05 08:05] VITALS: BP 129/99
== END 2020-12-05 08:13 | disposition short-term general hospital (02) ==
LOC: JER 00:02
PROC: 3E03329 Introduction of Other Anti-infective into Peripheral Vein, Percutaneous Approach (ICD-10-PCS; principal; 2020-12-05)
PROC: 3E033NZ Introduction of Analgesics, Hypnotics, Sedatives into Peripheral Vein, Percutaneous Approach (ICD-10-PCS; 2020-12-05)
DX: K12.2 Cellulitis and abscess of mouth (principal)
CPT/HCPCS: 36415; 70492-TC; 80053; 83605; 85025; 85610; 85730; 87040; 93005; 93010; 99285-25; C9803; J0131; J1100; Q9967; U0003

== ENCOUNTER 2021-02-21 14:03 | Emergency (ER) | payer OTHER ==
[2021-02-21 14:11] VITALS: BMI 45.1
[2021-02-21] MEDS ORDERED: SODIUM CHLORIDE 0.9% 500 ML INFUS.BAG IV ONE (14:46)
[2021-02-21] MEDS ORDERED: ONDANSETRON 4 MG/2 ML VIAL IVPUSH ONE (14:46)
[2021-02-21] MEDS ORDERED: ONDANSETRON 4 MG/2 ML VIAL ONE (14:50)
[2021-02-21 14:59] LABS: BASO % 1.1 % (0-2.0); HEMATOCRIT 36.5 % (32.4-45.2); HEMOGLOBIN 12.3 GM/dL (10.7-15.3); LYMPH % 22.6 % (8-40); MCH 27.4 pg (25.7-33.7); MCHC 33.8 g/dl (32.0-36.0); MEAN CELL VOLUME 81.1 fl (80-96); MEAN PLT VOLUME 9.4 fl (7.5-11.1); MONO % 7.5 % (3.8-10.2); NEUT % 66.8 % (42.8-82.8); PLATELET COUNT 192 K/MM3 (134-434); RDW 14.2 % (11.6-15.6); WHITE BLOOD COUNT 5.8 K/mm3 (4.0-10.0)
[2021-02-21 15:09] LABS: INR 1.15 (0.83-1.09); PROTHROMBIN TIME (PATIENT) 13.8 SEC (9.7-13.0)
[2021-02-21 15:19] LABS: CHLORIDE 107 mmol/L (98-107); SODIUM 141 mmol/L (136-145)
[2021-02-21 15:21] LABS: ALBUMIN 3.6 g/dl (3.4-5.0); CALCIUM 9.1 mg/dL (8.5-10.1)
[2021-02-21 15:22] LABS: ANION GAP 8 MMOL/L (8-16); BLOOD UREA NITROGEN 13.7 mg/dL (7-18); CO2 26 mmol/L (21-32); GLUCOSE,RANDOM 92 mg/dL (74-106)
[2021-02-21 15:25] LABS: CREATININE 0.9 mg/dL (0.55-1.3); SGOT/AST 30 U/L (15-37); SGPT/ALT 42 U/L (13-61)
[2021-02-21 15:27] LABS: ALK PHOS 83 U/L (45-117); BILIRUBIN,TOTAL 1.2 mg/dL (0.2-1); TOT PROT 7.2 g/dl (6.4-8.2)
[2021-02-21] MEDS ORDERED: ACETAMINOPHEN 1000 MG/100 ML VIAL (NON FORMULARY) IVPB ONE (15:35)
[2021-02-21] MEDS ORDERED: FAMOTIDINE 20 MG/50 ML IVPB 20 MG/50 ML MG IVPB ONE ×2 (15:36→15:40)
[2021-02-21] MEDS ORDERED: MAG HYDROX/AL HYDROX/SIMETH -MYLANTA- ORAL SUSPENSION PO ONE ×2 (15:36→18:11)
[2021-02-21] MEDS ORDERED: ACETAMINOPHEN INJECTION 100 ML IVPB ONE (15:38)
[2021-02-21 17:09] VITALS: BP 146/64; PULSE 51; TEMP 99
[2021-02-21] MEDS ORDERED: LIDOCAINE VISCOUS 2% ORAL/TOP 20 ML UNIT-DOSE CUP MM ONE (18:11)
[2021-02-21 18:22] LABS: LIPASE 70 U/L (73-393)
== END 2021-02-21 21:14 | disposition home or self-care (01) ==
LOC: SUPCPDRO 14:03 → JER 14:03
PROC: 3E033NZ Introduction of Analgesics, Hypnotics, Sedatives into Peripheral Vein, Percutaneous Approach (ICD-10-PCS; principal; 2021-02-21)
PROC: 3E033GC Introduction of Other Therapeutic Substance into Peripheral Vein, Percutaneous Approach (ICD-10-PCS; 2021-02-21)
DX: R11.2 Nausea with vomiting, unspecified (principal); R19.7 Diarrhea, unspecified
CPT/HCPCS: 36415; 71045-TC-FY; 80053; 82550; 83690; 84484; 85025; 85610; 85730; 87804; 93005; 93010; 99285-25; C9803; J0131; U0003; U0005

== ENCOUNTER 2021-03-27 16:32 | Inpatient (IN) | payer OTHER ==
[2021-03-27] MEDS ORDERED: ACETAMINOPHEN 1000 MG/100 ML VIAL (NON FORMULARY) IVPB ONE ×2 (17:30→23:17)
[2021-03-27 18:32] LABS: BASO % 1.1 % (0-2.0); EOS % 3.2 % (0-4.5); HEMATOCRIT 37.4 % (32.4-45.2); HEMOGLOBIN 12.7 GM/dL (10.7-15.3); LYMPH % 32.4 % (8-40); MCH 27.6 pg (25.7-33.7); MCHC 33.9 g/dl (32.0-36.0); MEAN CELL VOLUME 81.4 fl (80-96); MEAN PLT VOLUME 9.1 fl (7.5-11.1); NEUT % 55.3 % (42.8-82.8); PLATELET COUNT 159 10^3/uL (134-434); RBC 4.59 M/mm3 (3.60-5.2); RDW 14.6 % (11.6-15.6); WHITE BLOOD COUNT 5.4 K/mm3 (4.0-10.0)
[2021-03-27] MEDS ORDERED: ACETAMINOPHEN INJECTION 100 ML IVPB ONE (18:34)
[2021-03-27 18:49] LABS: CHLORIDE 108 mmol/L (98-107); SODIUM 141 mmol/L (136-145)
[2021-03-27 18:51] LABS: CALCIUM 9.1 mg/dL (8.5-10.1)
[2021-03-27 18:52] LABS: ALBUMIN 3.6 g/dl (3.4-5.0); ANION GAP 8 MMOL/L (8-16); BLOOD UREA NITROGEN 12.1 mg/dL (7-18); CO2 25 mmol/L (21-32)
[2021-03-27 18:53] LABS: GLUCOSE,RANDOM 83 mg/dL (74-106)
[2021-03-27 18:55] LABS: CREATININE 0.9 mg/dL (0.55-1.3); SGOT/AST 28 U/L (15-37); SGPT/ALT 36 U/L (13-61)
[2021-03-27 18:57] LABS: BILIRUBIN,TOTAL 0.8 mg/dL (0.2-1); TOT PROT 7.1 g/dl (6.4-8.2)
[2021-03-27 18:57] LABS: INR 1.09 (0.83-1.09); PROTHROMBIN TIME (PATIENT) 13.2 SEC (9.7-13.0)
[2021-03-27 18:58] LABS: ALK PHOS 79 U/L (45-117)
[2021-03-27 18:59] LABS: ACTIVATED PTT 25.2 SECONDS (25.2-36.5)
[2021-03-28] MEDS ORDERED: ACETAMINOPHEN INJECTION 100 ML IVPB ONE (00:05)
[2021-03-28 01:59] VITALS: BMI 40.9
[2021-03-28 03:23] LABS: URINE APPEARANCE CLEAR; URINE COLOR YELLOW
[2021-03-28 03:24] LABS: URINE BILIRUBIN NEGATIVE (NEGATIVE); URINE GLUCOSE (UA) NEGATIVE (NEGATIVE); URINE KETONE 15 mg/dl (NEGATIVE)
[2021-03-28 03:25] LABS: URINE LEUK ESTERASE NEGATIVE (NEGATIVE); URINE NITRITE NEGATIVE (NEGATIVE); URINE PROTEIN NEGATIVE (NEGATIVE); URINE UROBILINOGEN 0.2 mg/dL (0.2-1.0)
[2021-03-28 08:12] LABS: EOS % 4.8 % (0-4.5); HEMATOCRIT 35.8 % (32.4-45.2); HEMOGLOBIN 11.8 GM/dL (10.7-15.3); LYMPH % 37.1 % (8-40); MEAN CELL VOLUME 81.9 fl (80-96); MEAN PLT VOLUME 9.7 fl (7.5-11.1); MONO % 9.3 % (3.8-10.2); NEUT % 47.8 % (42.8-82.8); PLATELET COUNT 147 10^3/uL (134-434); RBC 4.38 M/mm3 (3.60-5.2); RDW 14.4 % (11.6-15.6); WHITE BLOOD COUNT 4.3 K/mm3 (4.0-10.0)
[2021-03-28 08:26] LABS: BLOOD UREA NITROGEN 11.8 mg/dL (7-18); CALCIUM 8.7 mg/dL (8.5-10.1)
[2021-03-28 08:27] LABS: ALBUMIN 3.4 g/dl (3.4-5.0); MAGNESIUM 2.1 mg/dL (1.8-2.4)
[2021-03-28 08:29] LABS: CREATININE 0.8 mg/dL (0.55-1.3)
[2021-03-28 08:30] LABS: PHOSPHOROUS 4.7 mg/dL (2.5-4.9)
[2021-03-28 08:31] LABS: TOT PROT 6.5 g/dl (6.4-8.2)
[2021-03-28] MEDS: LOSARTAN POTASSIUM 50 MG TABLET PO SCH (14:14)
[2021-03-28] MEDS: APIXABAN 5 MG TABLET PO SCH ×2 (14:14→21:03)
[2021-03-28] MEDS: FAMOTIDINE 20 MG TABLET PO SCH (14:14)
[2021-03-28] MEDS: BUDESONIDE/FORMETEROL FUMARATE 160/4.5 mcg INHALER IH SCH ×2 (14:14→21:04)
[2021-03-28] MEDS: FUROSEMIDE 20 MG TABLET (FP) PO SCH (14:14)
[2021-03-28] MEDS ORDERED: ACETAMINOPHEN 1000 MG/100 ML VIAL (NON FORMULARY) IVPB ONE (20:20)
[2021-03-28] MEDS: EZETIMIBE 10 MG TABLET (FP) PO SCH (21:03)
[2021-03-28] MEDS: ATORVASTATIN CA 20 MG TABLET (FP) PO SCH ×2 (21:03→21:11)
[2021-03-28] MEDS: CITALOPRAM HYDROBROMIDE 20 MG TABLET PO SCH (21:04)
[2021-03-28] MEDS: MONTELUKAST NA 10 MG TABLET PO SCH (21:04)
[2021-03-28] MEDS ORDERED: GABAPENTIN 400 MG CAPSULE PO ONE (21:56)
[2021-03-28] MEDS ORDERED: ESOMEPRAZOLE PO ONE ×4 (22:03→22:45)
[2021-03-28] MEDS ORDERED: PANTOPRAZOLE 40 MG TABLET PO ONE ×2 (22:30→22:45)
[2021-03-29 08:17] LABS: BASO % 1.7 % (0-2.0); EOS % 4.4 % (0-4.5); HEMATOCRIT 38.7 % (32.4-45.2); HEMOGLOBIN 12.9 GM/dL (10.7-15.3); MCHC 33.2 g/dl (32.0-36.0); MEAN CELL VOLUME 81.4 fl (80-96); MEAN PLT VOLUME 9.7 fl (7.5-11.1); MONO % 8.4 % (3.8-10.2); NEUT % 49.5 % (42.8-82.8); PLATELET COUNT 153 10^3/uL (134-434); RBC 4.76 M/mm3 (3.60-5.2); RDW 14.6 % (11.6-15.6); WHITE BLOOD COUNT 4.2 K/mm3 (4.0-10.0)
[2021-03-29 08:31] LABS: BLOOD UREA NITROGEN 8.2 mg/dL (7-18)
[2021-03-29 08:34] LABS: CREATININE 0.9 mg/dL (0.55-1.3); PHOSPHOROUS 4.3 mg/dL (2.5-4.9)
[2021-03-29] MEDS ORDERED: GABAPENTIN 400 MG CAPSULE PO ONE (08:53)
[2021-03-29] MEDS: APIXABAN 5 MG TABLET PO SCH ×2 (10:17→22:20)
[2021-03-29] MEDS: LOSARTAN POTASSIUM 50 MG TABLET PO SCH (10:17)
[2021-03-29] MEDS: FUROSEMIDE 20 MG TABLET (FP) PO SCH (10:18)
[2021-03-29] MEDS: GABAPENTIN 300 MG CAPSULE PO PRN ×2 (10:21→19:02)
[2021-03-29] MEDS: FAMOTIDINE 20 MG TABLET PO SCH (10:22)
[2021-03-29] MEDS: BUDESONIDE/FORMETEROL FUMARATE 160/4.5 mcg INHALER IH SCH ×2 (10:23→22:27)
[2021-03-29] MEDS: GABAPENTIN 400 MG CAPSULE PO SCH (22:20)
[2021-03-29] MEDS: CITALOPRAM HYDROBROMIDE 20 MG TABLET PO SCH (22:20)
[2021-03-29] MEDS: ATORVASTATIN CA 20 MG TABLET (FP) PO SCH (22:20)
[2021-03-29] MEDS: EZETIMIBE 10 MG TABLET (FP) PO SCH (22:21)
[2021-03-29] MEDS: MONTELUKAST NA 10 MG TABLET PO SCH (22:21)
[2021-03-29] MEDS ORDERED: PANTOPRAZOLE 40 MG TABLET PO ONE (22:31)
[2021-03-29] MEDS ORDERED: PT OWN MED DRAWER 7, Y5N ONE (23:23)
[2021-03-30] MEDS: FAMOTIDINE 20 MG TABLET PO SCH (09:23)
[2021-03-30] MEDS: LOSARTAN POTASSIUM 50 MG TABLET PO SCH (09:23)
[2021-03-30] MEDS: APIXABAN 5 MG TABLET PO SCH ×2 (09:23→21:23)
[2021-03-30] MEDS: FUROSEMIDE 20 MG TABLET (FP) PO SCH (09:23)
[2021-03-30] MEDS: NEXIUM 40 MG CAPSULE PO SCH ×2 (09:24→21:23)
[2021-03-30] MEDS: BUDESONIDE/FORMETEROL FUMARATE 160/4.5 mcg INHALER IH SCH ×2 (09:25→21:30)
[2021-03-30] MEDS: GABAPENTIN 300 MG CAPSULE PO PRN ×2 (09:53→18:45)
[2021-03-30] MEDS ORDERED: PT OWN MED DRAWER 7, Y5N ONE ×4 (09:56→22:08)
[2021-03-30] MEDS ORDERED: BISACODYL 10 MG SUPP.RECT PR ONE (10:27)
[2021-03-30] MEDS ORDERED: GLYCERIN 1 RECTAL SUPPOSITORY, ADULT RC ONE (10:35)
[2021-03-30 11:42] LABS: BASO % 1.4 % (0-2.0); EOS % 4.2 % (0-4.5); HEMATOCRIT 40.1 % (32.4-45.2); HEMOGLOBIN 13.4 GM/dL (10.7-15.3); LYMPH % 27.9 % (8-40); MCH 27.1 pg (25.7-33.7); MCHC 33.3 g/dl (32.0-36.0); MEAN CELL VOLUME 81.1 fl (80-96); MEAN PLT VOLUME 9.3 fl (7.5-11.1); NEUT % 58.5 % (42.8-82.8); PLATELET COUNT 157 10^3/uL (134-434); RBC 4.94 M/mm3 (3.60-5.2); RDW 14.5 % (11.6-15.6)
[2021-03-30] MEDS: POLYETHYLENE GLYCOL (HEALTHYLAX) 3350 17 GM PACKET PO SCH (11:56)
[2021-03-30 12:37] LABS: ALBUMIN 3.8 g/dl (3.4-5.0); MAGNESIUM 1.8 mg/dL (1.8-2.4); PHOSPHOROUS 3.9 mg/dL (2.5-4.9); TOT PROT 7.3 g/dl (6.4-8.2)
[2021-03-30] MEDS: GABAPENTIN 400 MG CAPSULE PO SCH (21:23)
[2021-03-30] MEDS: CITALOPRAM HYDROBROMIDE 20 MG TABLET PO SCH (21:23)
[2021-03-30] MEDS: EZETIMIBE 10 MG TABLET (FP) PO SCH (21:23)
[2021-03-30] MEDS: MONTELUKAST NA 10 MG TABLET PO SCH (21:23)
[2021-03-30] MEDS ORDERED: ATORVASTATIN CA 20 MG TABLET (FP) PO SCH (22:00)
[2021-03-30] MEDS: SIMVASTATIN 40 MG PO SCH ×2 (22:07)
[2021-03-31 07:48] LABS: BASO % 1.1 % (0-2.0); EOS % 3.7 % (0-4.5); HEMATOCRIT 39.9 % (32.4-45.2); HEMOGLOBIN 13.4 GM/dL (10.7-15.3); LYMPH % 25.4 % (8-40); MCH 27.4 pg (25.7-33.7); MCHC 33.6 g/dl (32.0-36.0); MEAN CELL VOLUME 81.7 fl (80-96); MEAN PLT VOLUME 9.6 fl (7.5-11.1); MONO % 8.5 % (3.8-10.2); NEUT % 61.3 % (42.8-82.8); PLATELET COUNT 151 10^3/uL (134-434); RBC 4.89 M/mm3 (3.60-5.2); RDW 14.6 % (11.6-15.6); WHITE BLOOD COUNT 5.9 K/mm3 (4.0-10.0)
[2021-03-31 08:14] LABS: BLOOD UREA NITROGEN 13.7 mg/dL (7-18); CALCIUM 9.3 mg/dL (8.5-10.1)
[2021-03-31 08:15] LABS: ALBUMIN 3.8 g/dl (3.4-5.0); MAGNESIUM 2.1 mg/dL (1.8-2.4)
[2021-03-31 08:18] LABS: PHOSPHOROUS 5.3 mg/dL (2.5-4.9)
[2021-03-31 08:19] LABS: BILIRUBIN,TOTAL 0.9 mg/dL (0.2-1); TOT PROT 7.2 g/dl (6.4-8.2)
[2021-03-31] MEDS: FAMOTIDINE 20 MG TABLET PO SCH (10:28)
[2021-03-31] MEDS: NEXIUM 40 MG CAPSULE PO SCH ×2 (10:28→22:18)
[2021-03-31] MEDS: POLYETHYLENE GLYCOL (HEALTHYLAX) 3350 17 GM PACKET PO SCH (10:28)
[2021-03-31] MEDS: APIXABAN 5 MG TABLET PO SCH ×2 (10:28→22:18)
[2021-03-31] MEDS: BUDESONIDE/FORMETEROL FUMARATE 160/4.5 mcg INHALER IH SCH ×2 (10:29→22:24)
[2021-03-31] MEDS: GABAPENTIN 300 MG CAPSULE PO PRN (10:36)
[2021-03-31] MEDS ORDERED: ACETAMINOPHEN 325 MG TABLET (FP) PO ONE (10:41)
[2021-03-31 14:52] LABS: URINE UREA NITROGEN 322 mg/dL (350-1000)
[2021-03-31 15:03] LABS: URINE APPEARANCE CLEAR; URINE BILIRUBIN NEGATIVE (NEGATIVE); URINE COLOR YELLOW; URINE GLUCOSE (UA) NEGATIVE (NEGATIVE); URINE KETONE NEGATIVE (NEGATIVE)
[2021-03-31 15:04] LABS: URINE LEUK ESTERASE NEGATIVE (NEGATIVE); URINE NITRITE NEGATIVE (NEGATIVE); URINE PROTEIN NEGATIVE (NEGATIVE); URINE UROBILINOGEN 0.2 mg/dL (0.2-1.0)
[2021-03-31] MEDS: LACTOBACILLUS ACIDOPHILUS 1 TABLET PO SCH (18:15)
[2021-03-31] MEDS: EZETIMIBE 10 MG TABLET (FP) PO SCH (22:17)
[2021-03-31] MEDS: CITALOPRAM HYDROBROMIDE 20 MG TABLET PO SCH (22:17)
[2021-03-31] MEDS: MONTELUKAST NA 10 MG TABLET PO SCH (22:17)
[2021-03-31] MEDS: GABAPENTIN 400 MG CAPSULE PO SCH (22:18)
[2021-03-31] MEDS: SIMVASTATIN 40 MG PO SCH (22:18)
[2021-04-01] MEDS ORDERED: ACETAMINOPHEN 325 MG TABLET (FP) PO ONE (04:57)
[2021-04-01] MEDS: GABAPENTIN 300 MG CAPSULE PO PRN ×2 (05:33→17:19)
[2021-04-01 07:39] LABS: BASO % 1.8 % (0-2.0); EOS % 4.4 % (0-4.5); HEMATOCRIT 37.6 % (32.4-45.2); LYMPH % 30.4 % (8-40); MCH 27.7 pg (25.7-33.7); MCHC 34.5 g/dl (32.0-36.0); MEAN CELL VOLUME 80.2 fl (80-96); MEAN PLT VOLUME 9.5 fl (7.5-11.1); MONO % 9.6 % (3.8-10.2); NEUT % 53.8 % (42.8-82.8); PLATELET COUNT 140 10^3/uL (134-434); RBC 4.69 M/mm3 (3.60-5.2); RDW 14.6 % (11.6-15.6); WHITE BLOOD COUNT 5.4 K/mm3 (4.0-10.0)
[2021-04-01 08:05] LABS: ALBUMIN 3.4 g/dl (3.4-5.0); BLOOD UREA NITROGEN 17.3 mg/dL (7-18)
[2021-04-01 08:08] LABS: CREATININE 1.6 mg/dL (0.55-1.3); PHOSPHOROUS 4.5 mg/dL (2.5-4.9)
[2021-04-01 08:09] LABS: BILIRUBIN,TOTAL 0.7 mg/dL (0.2-1)
[2021-04-01 08:10] LABS: TOT PROT 6.9 g/dl (6.4-8.2)
[2021-04-01] MEDS ORDERED: POTASSIUM CHLORIDE TABS 20 MEQ TABLET.ER (FP) PO ONE ×2 (08:17→13:00)
[2021-04-01] MEDS: NEXIUM 40 MG CAPSULE PO SCH ×2 (09:08→22:18)
[2021-04-01] MEDS: APIXABAN 5 MG TABLET PO SCH ×2 (09:09→22:18)
[2021-04-01] MEDS: BUDESONIDE/FORMETEROL FUMARATE 160/4.5 mcg INHALER IH SCH ×2 (09:09→22:20)
[2021-04-01] MEDS: LACTOBACILLUS ACIDOPHILUS 1 TABLET PO SCH (09:09)
[2021-04-01] MEDS ORDERED: SODIUM CHLORIDE 500 ML IV SCH ×2 (10:00→16:10)
[2021-04-01] MEDS: FAMOTIDINE 20 MG TABLET PO SCH (10:00)
[2021-04-01] MEDS: POLYETHYLENE GLYCOL (HEALTHYLAX) 3350 17 GM PACKET PO SCH (10:30)
[2021-04-01] MEDS: CITALOPRAM HYDROBROMIDE 20 MG TABLET PO SCH (22:18)
[2021-04-01] MEDS: MONTELUKAST NA 10 MG TABLET PO SCH (22:18)
[2021-04-01] MEDS: GABAPENTIN 400 MG CAPSULE PO SCH (22:18)
[2021-04-01] MEDS: EZETIMIBE 10 MG TABLET (FP) PO SCH (22:18)
[2021-04-01] MEDS: SIMVASTATIN 40 MG PO SCH (22:19)
[2021-04-02] MEDS: LACTOBACILLUS ACIDOPHILUS 1 TABLET PO SCH (10:20)
[2021-04-02] MEDS: APIXABAN 5 MG TABLET PO SCH ×2 (10:21→21:51)
[2021-04-02] MEDS: NEXIUM 40 MG CAPSULE PO SCH ×2 (10:21→21:49)
[2021-04-02] MEDS: POLYETHYLENE GLYCOL (HEALTHYLAX) 3350 17 GM PACKET PO SCH (10:21)
[2021-04-02] MEDS: BUDESONIDE/FORMETEROL FUMARATE 160/4.5 mcg INHALER IH SCH ×2 (10:23→21:48)
[2021-04-02] MEDS: FAMOTIDINE 20 MG TABLET PO SCH (10:25)
[2021-04-02] MEDS: GABAPENTIN 300 MG CAPSULE PO PRN (10:26)
[2021-04-02 11:50] LABS: BLOOD UREA NITROGEN 17.7 mg/dL (7-18); CALCIUM 9.2 mg/dL (8.5-10.1)
[2021-04-02 11:54] LABS: CREATININE 1.1 mg/dL (0.55-1.3); PHOSPHOROUS 2.2 mg/dL (2.5-4.9)
[2021-04-02] MEDS ORDERED: NAPH,MB-DB/K PH,MBDB POWDER PACKET PO ONE (16:34)
[2021-04-02] MEDS ORDERED: ACETAMINOPHEN 325 MG TABLET (FP) PO PRN (21:17)
[2021-04-02] MEDS: SIMVASTATIN 40 MG PO SCH (21:48)
[2021-04-02] MEDS: GABAPENTIN 400 MG CAPSULE PO SCH (21:50)
[2021-04-02] MEDS: EZETIMIBE 10 MG TABLET (FP) PO SCH (21:50)
[2021-04-02] MEDS: MONTELUKAST NA 10 MG TABLET PO SCH (21:50)
[2021-04-02] MEDS: CITALOPRAM HYDROBROMIDE 20 MG TABLET PO SCH (21:51)
[2021-04-02 22:59] VITALS: TEMP 98
[2021-04-03] MEDS ORDERED: BENZOCAINE/MENTH/CETYLPYRD CL 1 EACH LOZENGE MM PRN (02:05)
[2021-04-03 06:30] VITALS: BP 134/71; PULSE 49
[2021-04-03] MEDS: POLYETHYLENE GLYCOL (HEALTHYLAX) 3350 17 GM PACKET PO SCH (09:20)
[2021-04-03] MEDS: FAMOTIDINE 20 MG TABLET PO SCH (09:20)
[2021-04-03] MEDS: LACTOBACILLUS ACIDOPHILUS 1 TABLET PO SCH (09:20)
[2021-04-03] MEDS: APIXABAN 5 MG TABLET PO SCH (09:20)
[2021-04-03] MEDS: NEXIUM 40 MG CAPSULE PO SCH (09:21)
[2021-04-03] MEDS: BUDESONIDE/FORMETEROL FUMARATE 160/4.5 mcg INHALER IH SCH (09:21)
== END 2021-04-03 10:54 | disposition home or self-care (01) | DRG 309 ==
LOC: JER 16:32 → JERBED 21:36 → OBSVTOIN 22:53 → J4W 03-28 01:10
PROVIDERS: ADMIT Hospitalist; ATTEND Internal Medicine
DX: R00.1 Bradycardia, unspecified (principal); Z68.41 Body mass index [BMI] 40.0-44.9, adult; I50.32 Chronic diastolic (congestive) heart failure; D68.51 Activated protein C resistance; N17.9 Acute kidney failure, unspecified; R19.7 Diarrhea, unspecified; R42 Dizziness and giddiness; I10 Essential (primary) hypertension; E78.5 Hyperlipidemia, unspecified; E66.01 Morbid (severe) obesity due to excess calories; R10.9 Unspecified abdominal pain; J45.909 Unspecified asthma, uncomplicated; I25.10 Atherosclerotic heart disease of native coronary artery without angina pectoris; W19.XXXA Unspecified fall, initial encounter; E87.6 Hypokalemia; K21.9 Gastro-esophageal reflux disease without esophagitis; K59.00 Constipation, unspecified; R91.1 Solitary pulmonary nodule; K76.0 Fatty (change of) liver, not elsewhere classified; R55 Syncope and collapse; I47.1 Supraventricular tachycardia; F41.8 Other specified anxiety disorders
CPT/HCPCS: 36415; 70450-TC; 71045-TC-FY; 72125-TC; 74177-TC; 76775-TC; 80048; 80053; 81003; 82550; 82570; 83735; 84100; 84300; 84484; 84540; 85025; 85610; 85730; 86850; 86900; 86901; 87086; 93005; 93010; 93970-TC; 94010; 97116-GP; 97161-GP; 99285-25; C9803; G0378; J0131; U0003; U0005

== ENCOUNTER 2021-06-26 17:34 | Emergency (ER) | payer OTHER ==
[2021-06-26 18:10] VITALS: BMI 42.5
[2021-06-26] MEDS ORDERED: LACTATED RINGERS SOLUTION 1000 ML INFUS.BAG IV ONE (18:15)
[2021-06-26] MEDS ORDERED: ACETAMINOPHEN 1000 MG/100 ML VIAL (NON FORMULARY) IVPB ONE (18:15)
[2021-06-26] MEDS ORDERED: FAMOTIDINE 20 MG/50 ML IVPB 20 MG/50 ML MG IVPB ONE ×2 (18:19→19:13)
[2021-06-26 19:42] LABS: BASO % 0.8 % (0-2.0); EOS % 0.9 % (0-4.5); HEMATOCRIT 41.6 % (32.4-45.2); LYMPH % 18.2 % (8-40); MCH 27.5 pg (25.7-33.7); MCHC 33.8 g/dl (32.0-36.0); MEAN CELL VOLUME 81.5 fl (80-96); MEAN PLT VOLUME 8.6 fl (7.5-11.1); MONO % 7.3 % (3.8-10.2); NEUT % 72.8 % (42.8-82.8); PLATELET COUNT 169 10^3/uL (134-434); RDW 14.2 % (11.6-15.6); WHITE BLOOD COUNT 8.2 K/mm3 (4.0-10.0)
[2021-06-26 19:47] LABS: CHLORIDE 107 mmol/L (98-107); SODIUM 141 mmol/L (136-145)
[2021-06-26 19:49] LABS: CALCIUM 7.9 mg/dL (8.5-10.1)
[2021-06-26 19:50] LABS: ALBUMIN 3.6 g/dl (3.4-5.0); ANION GAP 10 MMOL/L (8-16); BLOOD UREA NITROGEN 15.2 mg/dL (7-18); CO2 25 mmol/L (21-32); LIPASE 73 U/L (73-393)
[2021-06-26 19:53] LABS: CREATININE 0.8 mg/dL (0.55-1.3); SGOT/AST 29 U/L (15-37); SGPT/ALT 34 U/L (13-61)
[2021-06-26 19:54] LABS: BILIRUBIN,TOTAL 1.2 mg/dL (0.2-1); TOT PROT 7.5 g/dl (6.4-8.2)
[2021-06-26] MEDS ORDERED: morphine SULFATE 4 MG/ML VIAL IVPUSH ONE (19:54)
[2021-06-26 19:56] LABS: ALK PHOS 61 U/L (45-117)
[2021-06-26] MEDS ORDERED: ACETAMINOPHEN INJECTION 100 ML IVPB ONE (19:57)
[2021-06-26] MEDS ORDERED: morphine SULFATE 4 MG/ML VIAL ONE (20:16)
[2021-06-26 20:25] LABS: GLUCOSE,RANDOM 90 mg/dL (74-106)
[2021-06-26 20:57] LABS: EPI CELLS >36 /uL (0-25.1); HYALINE CASTS 39 /uL (0-3.1); PH,URINE 5.5 (5.0-8.0); URINE APPEARANCE CLOUDY; URINE BACTERIA 449 /uL (0-1359); URINE BILIRUBIN 2+ (NEGATIVE); URINE COLOR DK YELLOW; URINE GLUCOSE (UA) NEGATIVE (NEGATIVE); URINE KETONE 2+ (NEGATIVE); URINE LEUK ESTERASE TRACE (NEGATIVE); URINE NITRITE NEGATIVE (NEGATIVE); URINE PROTEIN 2+ (NEGATIVE); URINE RBC 5 /uL (0-23.9); URINE WBC 75 /uL (0-25.8)
[2021-06-26] MEDS ORDERED: LACTATED RINGERS SOLUTION 1,000 ML IV STA (22:34)
[2021-06-27 02:02] VITALS: TEMP 98.5
[2021-06-27] MEDS ORDERED: MECLIZINE HCL 25 MG TABLET (FP) PO ONE ×2 (03:07→03:08)
[2021-06-27] MEDS ORDERED: LACTATED RINGERS SOLUTION 1000 ML INFUS.BAG IV ONE (03:07)
[2021-06-27] MEDS ORDERED: MECLIZINE HCL 25 MG TABLET (FP) ONE (03:11)
[2021-06-27 13:47] VITALS: BP 131/63; PULSE 72
== END 2021-06-27 13:51 | disposition home or self-care (01) ==
LOC: JER 17:34
PROC: 3E0333Z Introduction of Anti-inflammatory into Peripheral Vein, Percutaneous Approach (ICD-10-PCS; principal; 2021-06-26)
PROC: 3E033GC Introduction of Other Therapeutic Substance into Peripheral Vein, Percutaneous Approach (ICD-10-PCS; 2021-06-26)
PROC: 3E033NZ Introduction of Analgesics, Hypnotics, Sedatives into Peripheral Vein, Percutaneous Approach (ICD-10-PCS; 2021-06-26)
PROC: 3E0337Z Introduction of Electrolytic and Water Balance Substance into Peripheral Vein, Percutaneous Approach (ICD-10-PCS; 2021-06-26)
DX: R19.7 Diarrhea, unspecified (principal)
CPT/HCPCS: 36415; 71046-TC-FY; 74176-TC; 80053; 81003; 82550; 82553; 83690; 84484; 85025; 87086; 87186; 93005; 93010; 99285-25; C9803; J0131; U0003; U0005

== ENCOUNTER 2022-03-21 01:03 | Emergency (ER) | payer BC, OTHER ==
[2022-03-21 01:18] VITALS: TEMP 98.1; BMI 42.5
[2022-03-21 02:20] VITALS: BP 130/48; PULSE 58
[2022-03-21] MEDS ORDERED: ACETAMINOPHEN 325 MG TABLET (FP) PO ONE (03:14)
[2022-03-21] MEDS ORDERED: ACETAMINOPHEN 325 MG TABLET (FP) ONE (03:25)
== END 2022-03-21 03:53 | disposition home or self-care (01) ==
LOC: JER 01:03
DX: R07.9 Chest pain, unspecified (principal)
CPT/HCPCS: 93005; 93010; 99283-25

== ENCOUNTER 2023-02-27 18:27 | Inpatient (IN) | payer OTHER ==
[2023-02-27] MEDS ORDERED: ACETAMINOPHEN 1000 MG/100 ML BAG IVPB ONE (19:04)
[2023-02-27] MEDS ORDERED: ACETAMINOPHEN INJECTION 100 ML IVPB ONE (20:18)
[2023-02-27 21:52] LABS: BASO % 0.6 % (0-2.0); EOS % 3.3 % (0-4.5); HEMATOCRIT 38.9 % (32.4-45.2); HEMOGLOBIN 12.7 GM/dL (10.7-15.3); INR 1.39 (0.83-1.09); LYMPH % 29.7 % (8-40); MCH 26.9 pg (25.7-33.7); MCHC 32.6 g/dl (32.0-36.0); MEAN CELL VOLUME 82.6 fl (80-96); MEAN PLT VOLUME 10.5 fl (7.5-11.1); MONO % 8.5 % (3.8-10.2); NEUT % 57.9 % (42.8-82.8); PLATELET COUNT 166 10^3/uL (134-434); PROTHROMBIN TIME (PATIENT) 16.1 SEC (9.7-13.0); RBC 4.72 M/mm3 (3.60-5.2); RDW 14.4 % (11.6-15.6)
[2023-02-27 21:55] LABS: ACTIVATED PTT 37.5 SECONDS (25.2-36.5)
[2023-02-27 22:03] LABS: POTASSIUM 4.1 mmol/L (3.5-5.1)
[2023-02-27 22:05] LABS: ALBUMIN 3.8 g/dl (3.4-5.0); BLOOD UREA NITROGEN 23.1 mg/dL (7-18); CALCIUM 9.5 mg/dL (8.5-10.1); MAGNESIUM 1.9 mg/dL (1.8-2.4)
[2023-02-27 22:08] LABS: CREATININE 0.9 mg/dL (0.55-1.3)
[2023-02-27 22:10] LABS: BILIRUBIN,TOTAL 0.9 mg/dL (0.2-1); TOT PROT 7.1 g/dl (6.4-8.2)
[2023-02-27 23:01] LABS: N-TERMINAL BNP 205.8 pg/ml (5-125)
[2023-02-27] MEDS ORDERED: MECLIZINE HCL 12.5 MG TABLET PO PRN (23:56)
[2023-02-27] MEDS ORDERED: PATIENT'S OWN MEDICATION (NON-FORMULARY) (Linaclotide [Linzess] 145 MCG Capsule) PO PRN (23:56)
[2023-02-27] MEDS ORDERED: GABAPENTIN 300 MG CAPSULE PO PRN (23:56)
[2023-02-27] MEDS ORDERED: SUMAtriptan SUCCINATE 50 MG TABLET PO PRN (23:56)
[2023-02-28] MEDS: INSULIN SLIDING SCALE (NOVOLOG) 1 VIAL SQ SCH ×4 (07:08→21:59)
[2023-02-28 07:39] LABS: BASO % 0.7 % (0-2.0); EOS % 4.8 % (0-4.5); HEMATOCRIT 35.7 % (32.4-45.2); HEMOGLOBIN 11.8 GM/dL (10.7-15.3); LYMPH % 34.6 % (8-40); MEAN CELL VOLUME 81.8 fl (80-96); MONO % 8.7 % (3.8-10.2); NEUT % 51.2 % (42.8-82.8); PLATELET COUNT 139 10^3/uL (134-434); RBC 4.36 M/mm3 (3.60-5.2); RDW 14.3 % (11.6-15.6); WHITE BLOOD COUNT 5.2 K/mm3 (4.0-10.0)
[2023-02-28 08:21] LABS: POTASSIUM 4.2 mmol/L (3.5-5.1)
[2023-02-28 08:29] LABS: ALBUMIN 3.5 g/dl (3.4-5.0); BLOOD UREA NITROGEN 21.8 mg/dL (7-18)
[2023-02-28 08:33] LABS: BILIRUBIN,TOTAL 1.3 mg/dL (0.2-1); CREATININE 0.9 mg/dL (0.55-1.3); TOT PROT 6.4 g/dl (6.4-8.2)
[2023-02-28] MEDS ORDERED: PATIENT'S OWN MEDICATION (NON-FORMULARY) (Budesonide/Glycopyr/Formoterol [Breztri Aerosphe IH SCH (10:00)
[2023-02-28] MEDS: ISOSORBIDE MONONITRATE 30 MG TAB.SR.24H (FP) PO SCH (10:57)
[2023-02-28] MEDS: LOSARTAN POTASSIUM 50 MG TABLET PO SCH (10:57)
[2023-02-28] MEDS: PANTOPRAZOLE 40 MG TABLET PO SCH ×2 (10:57→21:58)
[2023-02-28] MEDS: CITALOPRAM HYDROBROMIDE 20 MG TABLET PO SCH ×2 (10:57→11:15)
[2023-02-28] MEDS: FUROSEMIDE 20 MG TABLET (FP) PO SCH (10:57)
[2023-02-28] MEDS: FOLIC ACID 1 MG TABLET (FP) PO SCH (10:57)
[2023-02-28] MEDS: APIXABAN 5 MG TABLET PO SCH ×2 (10:57→21:58)
[2023-02-28] MEDS: hydrOXYzine PAMOATE 50 MG CAPSULE (FP) PO SCH ×2 (10:58→22:00)
[2023-02-28] MEDS: metoPROLOL SUCCINATE 25 MG TAB.SR.24H (FP) PO SCH ×2 (10:58→11:17)
[2023-02-28] MEDS: BUDESONIDE/FORMETEROL FUMARATE 160/4.5 mcg INHALER IH SCH ×2 (11:52→21:59)
[2023-02-28] MEDS: TIOTROPIUM BROMIDE 2.5 MCG (SPIRIVA) RESPIMAT INHALER IH SCH (11:53)
[2023-02-28 15:55] VITALS: BMI 47.2
[2023-02-28 18:47] LABS: URINE APPEARANCE CLEAR; URINE BILIRUBIN NEGATIVE (NEGATIVE); URINE COLOR YELLOW; URINE GLUCOSE (UA) NEGATIVE (NEGATIVE); URINE KETONE NEGATIVE (NEGATIVE); URINE LEUK ESTERASE NEGATIVE (NEGATIVE); URINE NITRITE NEGATIVE (NEGATIVE); URINE PROTEIN NEGATIVE (NEGATIVE); URINE UROBILINOGEN 0.2 mg/dL (0.2-1.0)
[2023-02-28] MEDS: EZETIMIBE 10 MG TABLET (FP) PO SCH (21:58)
[2023-02-28] MEDS: ROSUVASTATIN CA 20 MG TABLET PO SCH (21:58)
[2023-02-28] MEDS: GABAPENTIN 400 MG CAPSULE PO SCH (21:58)
[2023-02-28] MEDS: MONTELUKAST NA 10 MG TABLET PO SCH (21:58)
[2023-02-28] MEDS: SOLIFENACIN SUCCINATE 5 MG TAB PO SCH (21:59)
[2023-02-28] MEDS ORDERED: ZOLPIDEM TARTRATE 5 MG TABLET PO PRN (22:00)
[2023-03-01] MEDS: INSULIN SLIDING SCALE (NOVOLOG) 1 VIAL SQ SCH ×4 (06:08→22:32)
[2023-03-01] MEDS: APIXABAN 5 MG TABLET PO SCH ×2 (10:01→22:31)
[2023-03-01] MEDS: metoPROLOL SUCCINATE 25 MG TAB.SR.24H (FP) PO SCH (10:01)
[2023-03-01] MEDS: ISOSORBIDE MONONITRATE 30 MG TAB.SR.24H (FP) PO SCH (10:01)
[2023-03-01] MEDS: FOLIC ACID 1 MG TABLET (FP) PO SCH (10:01)
[2023-03-01] MEDS: PANTOPRAZOLE 40 MG TABLET PO SCH ×2 (10:01→22:32)
[2023-03-01] MEDS: FUROSEMIDE 20 MG TABLET (FP) PO SCH (10:01)
[2023-03-01] MEDS: LOSARTAN POTASSIUM 50 MG TABLET PO SCH (10:01)
[2023-03-01] MEDS: CITALOPRAM HYDROBROMIDE 20 MG TABLET PO SCH (10:02)
[2023-03-01] MEDS: hydrOXYzine PAMOATE 50 MG CAPSULE (FP) PO SCH ×2 (10:03→22:34)
[2023-03-01] MEDS: TIOTROPIUM BROMIDE 2.5 MCG (SPIRIVA) RESPIMAT INHALER IH SCH (10:04)
[2023-03-01] MEDS: BUDESONIDE/FORMETEROL FUMARATE 160/4.5 mcg INHALER IH SCH ×2 (10:04→22:32)
[2023-03-01] MEDS ORDERED: MAG HYDROX/AL HYDROX/SIMETH -MYLANTA- ORAL SUSPENSION PO ONE (16:58)
[2023-03-01] MEDS ORDERED: FAMOTIDINE 20 MG TABLET PO ONE (16:58)
[2023-03-01] MEDS ORDERED: LIDOCAINE 5% TOPICAL PATCH TP ONE (17:16)
[2023-03-01] MEDS ORDERED: MAG HYDROX/AL HYDROX/SIMETH 30 ML UNIT-DOSE CUP PO ONE (17:45)
[2023-03-01 18:38] LABS: POTASSIUM 3.4 mmol/L (3.5-5.1)
[2023-03-01 18:40] LABS: BLOOD UREA NITROGEN 15.7 mg/dL (7-18); CALCIUM 8.7 mg/dL (8.5-10.1); MAGNESIUM 1.9 mg/dL (1.8-2.4)
[2023-03-01 18:44] LABS: CREATININE 1.1 mg/dL (0.55-1.3); PHOSPHOROUS 3.8 mg/dL (2.5-4.9)
[2023-03-01] MEDS ORDERED: LIDOCAINE PATCH REMOVAL MC SCH (22:00)
[2023-03-01] MEDS: ROSUVASTATIN CA 20 MG TABLET PO SCH (22:31)
[2023-03-01] MEDS: GABAPENTIN 400 MG CAPSULE PO SCH (22:32)
[2023-03-01] MEDS: MONTELUKAST NA 10 MG TABLET PO SCH (22:32)
[2023-03-01] MEDS: EZETIMIBE 10 MG TABLET (FP) PO SCH (22:32)
[2023-03-01] MEDS: SOLIFENACIN SUCCINATE 5 MG TAB PO SCH (22:33)
[2023-03-02] MEDS: INSULIN SLIDING SCALE (NOVOLOG) 1 VIAL SQ SCH ×4 (07:10→21:46)
[2023-03-02] MEDS: FUROSEMIDE 20 MG TABLET (FP) PO SCH (09:34)
[2023-03-02] MEDS: FOLIC ACID 1 MG TABLET (FP) PO SCH (09:34)
[2023-03-02] MEDS: ISOSORBIDE MONONITRATE 30 MG TAB.SR.24H (FP) PO SCH (09:35)
[2023-03-02] MEDS: LOSARTAN POTASSIUM 50 MG TABLET PO SCH (09:35)
[2023-03-02] MEDS: APIXABAN 5 MG TABLET PO SCH ×2 (09:35→21:47)
[2023-03-02] MEDS: TIOTROPIUM BROMIDE 2.5 MCG (SPIRIVA) RESPIMAT INHALER IH SCH (09:37)
[2023-03-02] MEDS: PANTOPRAZOLE 40 MG TABLET PO SCH ×2 (09:37→21:47)
[2023-03-02] MEDS: CITALOPRAM HYDROBROMIDE 20 MG TABLET PO SCH (09:37)
[2023-03-02] MEDS: metoPROLOL SUCCINATE 25 MG TAB.SR.24H (FP) PO SCH (09:38)
[2023-03-02] MEDS: BUDESONIDE/FORMETEROL FUMARATE 160/4.5 mcg INHALER IH SCH ×2 (09:38→21:49)
[2023-03-02] MEDS: hydrOXYzine PAMOATE 50 MG CAPSULE (FP) PO SCH ×2 (09:40→21:47)
[2023-03-02 15:48] VITALS: RESP 18
[2023-03-02] MEDS: ROSUVASTATIN CA 20 MG TABLET PO SCH (21:47)
[2023-03-02] MEDS: GABAPENTIN 400 MG CAPSULE PO SCH (21:47)
[2023-03-02] MEDS: MONTELUKAST NA 10 MG TABLET PO SCH (21:47)
[2023-03-02] MEDS: EZETIMIBE 10 MG TABLET (FP) PO SCH (21:48)
[2023-03-02] MEDS: SOLIFENACIN SUCCINATE 5 MG TAB PO SCH (21:48)
[2023-03-03] MEDS: INSULIN SLIDING SCALE (NOVOLOG) 1 VIAL SQ SCH ×2 (06:23→11:52)
[2023-03-03] MEDS: FOLIC ACID 1 MG TABLET (FP) PO SCH (08:59)
[2023-03-03] MEDS: CITALOPRAM HYDROBROMIDE 20 MG TABLET PO SCH (08:59)
[2023-03-03] MEDS: APIXABAN 5 MG TABLET PO SCH (08:59)
[2023-03-03] MEDS: metoPROLOL SUCCINATE 25 MG TAB.SR.24H (FP) PO SCH (09:00)
[2023-03-03] MEDS: LOSARTAN POTASSIUM 50 MG TABLET PO SCH (09:00)
[2023-03-03] MEDS: FUROSEMIDE 20 MG TABLET (FP) PO SCH (09:00)
[2023-03-03] MEDS: ISOSORBIDE MONONITRATE 30 MG TAB.SR.24H (FP) PO SCH (09:00)
[2023-03-03] MEDS: PANTOPRAZOLE 40 MG TABLET PO SCH (09:01)
[2023-03-03] MEDS: BUDESONIDE/FORMETEROL FUMARATE 160/4.5 mcg INHALER IH SCH (09:01)
[2023-03-03] MEDS: hydrOXYzine PAMOATE 50 MG CAPSULE (FP) PO SCH (09:02)
[2023-03-03] MEDS: TIOTROPIUM BROMIDE 2.5 MCG (SPIRIVA) RESPIMAT INHALER IH SCH (09:04)
[2023-03-03 15:04] VITALS: BP 141/51; PULSE 53; TEMP 97.8
== END 2023-03-03 15:41 | disposition home or self-care (01) | DRG 312 ==
LOC: JER 18:27 → JERBED 22:41 → OBSVTOIN 23:40 → J4S 02-28 01:05
PROVIDERS: ADMIT Internal Medicine; ATTEND Internal Medicine
DX: R55 Syncope and collapse (principal); D68.51 Activated protein C resistance; Z68.42 Body mass index [BMI] 45.0-49.9, adult; E78.5 Hyperlipidemia, unspecified; I10 Essential (primary) hypertension; K21.9 Gastro-esophageal reflux disease without esophagitis; E11.9 Type 2 diabetes mellitus without complications; E66.01 Morbid (severe) obesity due to excess calories; R59.0 Localized enlarged lymph nodes; G47.33 Obstructive sleep apnea (adult) (pediatric); R07.9 Chest pain, unspecified
CPT/HCPCS: 0241U-QW; 36415; 70450-TC; 70551-TC; 71045-TC-FY; 71275-TC; 72125-TC; 73030-TC-LT-FY; 73562-TC-LT-FY; 80048; 80053; 80061; 81003; 82550; 82962; 83036; 83735; 83880; 84100; 84443; 84484; 85025; 85610; 85730; 86850; 86900; 86901; 87077; 87081; 87086; 93005; 93010; 93306-TC; 97116-GP; 97162-GP; 99285-25; G0378; Q9967

== ENCOUNTER 2023-11-08 14:00 | Observation (INO) | payer OTHER ==
[2023-11-08 14:09] VITALS: BMI 50.8
[2023-11-08 17:00] LABS: BASO % 1.1 % (0-2.0); EOS % 3.5 % (0-4.5); HEMATOCRIT 39.5 % (32.4-45.2); HEMOGLOBIN 13.3 GM/dL (10.7-15.3); LYMPH % 28.7 % (8-40); MCH 27.5 pg (25.7-33.7); MCHC 33.7 g/dl (32.0-36.0); MEAN CELL VOLUME 81.5 fl (80-96); MEAN PLT VOLUME 9.8 fl (7.5-11.1); MONO % 8.1 % (3.8-10.2); NEUT % 58.6 % (42.8-82.8); PLATELET COUNT 184 10^3/uL (134-434); RBC 4.85 M/mm3 (3.60-5.2); RDW 15.1 % (11.6-15.6); WHITE BLOOD COUNT 6.1 K/mm3 (4.0-10.0)
[2023-11-08 17:08] LABS: INR 1.22 (0.83-1.09); PROTHROMBIN TIME (PATIENT) 14.1 SEC (9.7-13.0)
[2023-11-08 17:10] LABS: ACTIVATED PTT 37.8 SECONDS (25.2-36.5)
[2023-11-08 17:27] LABS: POTASSIUM 4.1 mmol/L (3.5-5.1)
[2023-11-08 17:30] LABS: ALBUMIN 3.4 g/dl (3.4-5.0); BLOOD UREA NITROGEN 12.5 mg/dL (7-18); CALCIUM 9.1 mg/dL (8.5-10.1)
[2023-11-08 17:33] LABS: CREATININE 0.7 mg/dL (0.55-1.3); PHOSPHOROUS 3.2 mg/dL (2.5-4.9)
[2023-11-08 17:34] LABS: BILIRUBIN,TOTAL 0.6 mg/dL (0.2-1); TOT PROT 6.8 g/dl (6.4-8.2)
[2023-11-08] MEDS: SODIUM CHLORIDE 0.9% 500 ML INFUS.BAG IV ONE (21:47)
[2023-11-08] MEDS ORDERED: APIXABAN 5 MG TABLET ONE (22:49)
[2023-11-08] MEDS ORDERED: MONTELUKAST NA 10 MG TABLET ONE (22:49)
[2023-11-08] MEDS ORDERED: MECLIZINE HCL 25 MG TABLET (FP) ONE (22:49)
[2023-11-08] MEDS ORDERED: metoPROLOL SUCCINATE 25 MG TAB.SR.24H (FP) PO ONE (22:49)
[2023-11-08] MEDS ORDERED: GABAPENTIN 400 MG CAPSULE ONE (22:50)
[2023-11-08] MEDS ORDERED: CITALOPRAM HYDROBROMIDE 10 MG TABLET ONE (22:50)
[2023-11-08] MEDS: MECLIZINE HCL 25 MG TABLET (FP) PO ONE (23:04)
[2023-11-08] MEDS: APIXABAN 5 MG TABLET PO SCH (23:04)
[2023-11-08] MEDS: MONTELUKAST NA 10 MG TABLET PO SCH (23:04)
[2023-11-08] MEDS: metoPROLOL SUCCINATE 25 MG TAB.SR.24H (FP) PO SCH (23:04)
[2023-11-08] MEDS: CITALOPRAM HYDROBROMIDE 20 MG TABLET PO SCH (23:04)
[2023-11-08] MEDS: GABAPENTIN 400 MG CAPSULE PO SCH (23:04)
[2023-11-08 23:32] VITALS: BP 125/66; PULSE 69; RESP 18; TEMP 98.7
[2023-11-09] MEDS: SOLIFENACIN SUCCINATE 5 MG TAB PO SCH (00:01)
[2023-11-09] MEDS: EZETIMIBE 10 MG TABLET (FP) PO SCH (00:01)
[2023-11-09] MEDS ORDERED: FLUTICASONE/UMECLIDIN/VILANTER(200-62.5-25 TRELEGY ELLIPTA) INAHLER IH SCH (10:00)
== END 2023-11-09 00:43 | disposition home or self-care (01) ==
LOC: JER 14:00 → JERBED 20:35
PROVIDERS: ADMIT Internal Medicine; ATTEND Internal Medicine
PROC: 3E0337Z Introduction of Electrolytic and Water Balance Substance into Peripheral Vein, Percutaneous Approach (ICD-10-PCS; principal; 2023-11-08)
DX: R07.9 Chest pain, unspecified (principal); E11.40 Type 2 diabetes mellitus with diabetic neuropathy, unspecified; R42 Dizziness and giddiness; I10 Essential (primary) hypertension; E78.5 Hyperlipidemia, unspecified; M79.7 Fibromyalgia; J45.909 Unspecified asthma, uncomplicated; Z86.718 Personal history of other venous thrombosis and embolism; G62.9 Polyneuropathy, unspecified; I45.10 Unspecified right bundle-branch block; Z79.01 Long term (current) use of anticoagulants; D68.51 Activated protein C resistance; Z90.49 Acquired absence of other specified parts of digestive tract; Z90.79 Acquired absence of other genital organ(s); Z88.8 Allergy status to other drugs, medicaments and biological substances; Z91.018 Allergy to other foods
CPT/HCPCS: 0241U-QW; 36415; 71046-TC-FY; 71275-TC; 80053; 82550; 83735; 84100; 84484; 85025; 85610; 85730; 93005; 93010; 96360; 99285-25; G0378; Q9967

== ENCOUNTER 2024-02-14 01:58 | Emergency (ER) | payer OTHER ==
[2024-02-14 02:07] VITALS: BMI 51.7
[2024-02-14 03:29] LABS: BASO % 1.1 % (0-2.0); EOS % 2.8 % (0-4.5); HEMATOCRIT 39.3 % (32.4-45.2); HEMOGLOBIN 13.5 GM/dL (10.7-15.3); LYMPH % 23.3 % (8-40); MCH 28.4 pg (25.7-33.7); MCHC 34.4 g/dl (32.0-36.0); MEAN CELL VOLUME 82.6 fl (80-96); MEAN PLT VOLUME 10.5 fl (7.5-11.1); MONO % 8.3 % (3.8-10.2); NEUT % 64.5 % (42.8-82.8); PLATELET COUNT 182 10^3/uL (134-434); RBC 4.75 M/mm3 (3.60-5.2); RDW 14.2 % (11.6-15.6); WHITE BLOOD COUNT 9.8 K/mm3 (4.0-10.0)
[2024-02-14 03:42] LABS: INR 1.35 (0.83-1.09); PROTHROMBIN TIME (PATIENT) 15.1 SEC (9.7-13.0)
[2024-02-14 03:44] LABS: ACTIVATED PTT 46.2 SECONDS (25.2-36.5)
[2024-02-14 04:26] LABS: POTASSIUM 4.3 mmol/L (3.5-5.1)
[2024-02-14 04:29] LABS: ALBUMIN 3.9 g/dl (3.4-5.0); CALCIUM 9.4 mg/dL (8.5-10.1)
[2024-02-14 04:34] LABS: BILIRUBIN,TOTAL 0.8 mg/dL (0.2-1); TOT PROT 7.6 g/dl (6.4-8.2)
[2024-02-14] MEDS ORDERED: GABAPENTIN 400 MG CAPSULE ONE (05:28)
[2024-02-14] MEDS: GABAPENTIN 400 MG CAPSULE PO ONE (05:44)
[2024-02-14 06:03] LABS: POTASSIUM 4.1 mmol/L (3.5-5.1)
[2024-02-14 06:04] LABS: BLOOD UREA NITROGEN 12.9 mg/dL (7-18); CALCIUM 9.1 mg/dL (8.5-10.1)
[2024-02-14 06:08] LABS: CREATININE 0.9 mg/dL (0.55-1.3)
[2024-02-14] MEDS ORDERED: ACETAMINOPHEN INJECTION 100 ML IVPB ONE (06:09)
[2024-02-14] MEDS: ACETAMINOPHEN 1000 MG/100 ML BAG IVPB ONE (06:12)
[2024-02-14 08:34] VITALS: BP 143/69; PULSE 75; RESP 19; TEMP 98.1
== END 2024-02-14 11:15 | disposition home or self-care (01) ==
LOC: JER 01:58
PROC: 3E033NZ Introduction of Analgesics, Hypnotics, Sedatives into Peripheral Vein, Percutaneous Approach (ICD-10-PCS; principal; 2024-02-14)
DX: R20.2 Paresthesia of skin (principal); R07.9 Chest pain, unspecified; R10.9 Unspecified abdominal pain; M79.661 Pain in right lower leg; M79.674 Pain in right toe(s)
CPT/HCPCS: 36415; 71045-TC-FY; 71275-TC; 80048; 80053; 83690; 83735; 84484; 85025; 85610; 85730; 86850; 86900; 86901; 93005; 93010; 96374; 99285-25; J0131

== ENCOUNTER 2024-07-22 14:43 | Observation (INO) | payer OTHER ==
[2024-07-22 15:44] VITALS: BMI 48.8
[2024-07-22 18:03] LABS: VENOUS BASE EXCESS 0.8 mmol/L (-2-2); VENOUS O2 SATURATION 54.2 % (70-80); VENOUS PCO2 42.8 mmHg (38-52); VENOUS PH 7.398 (7.310-7.410)
[2024-07-22] MEDS: ACETAMINOPHEN 1000 MG/100 ML BAG IVPB ONE (18:03)
[2024-07-22 18:04] LABS: BASO % 0.6 % (0-2.0); EOS % 3.7 % (0-4.5); HEMATOCRIT 36.1 % (32.4-45.2); HEMOGLOBIN 11.9 GM/dL (10.7-15.3); LYMPH % 18.7 % (8-40); MCH 27.4 pg (25.7-33.7); MEAN CELL VOLUME 83.1 fl (80-96); MEAN PLT VOLUME 9.5 fl (7.5-11.1); MONO % 9.2 % (3.8-10.2); NEUT % 67.8 % (42.8-82.8); PLATELET COUNT 164 10^3/uL (134-434); RBC 4.34 M/mm3 (3.60-5.2); WHITE BLOOD COUNT 7.1 K/mm3 (4.0-10.0)
[2024-07-22 18:25] LABS: POTASSIUM 4.6 mmol/L (3.5-5.1)
[2024-07-22 18:28] LABS: ALBUMIN 3.5 g/dl (3.4-5.0); BLOOD UREA NITROGEN 16.1 mg/dL (7-18)
[2024-07-22 18:31] LABS: CREATININE 0.9 mg/dL (0.55-1.3)
[2024-07-22 18:33] LABS: BILIRUBIN,TOTAL 0.8 mg/dL (0.2-1); TOT PROT 7.2 g/dl (6.4-8.2)
[2024-07-22] MEDS ORDERED: ALBUTEROL SO4 2.5/IPRATROPIUM 0.5 INH SOL 3 ML VIAL.NEB. NEB ONE (19:09)
[2024-07-22] MEDS: ALBUTEROL SO4 2.5/IPRATROPIUM 0.5 INH SOL 3 ML VIAL.NEB. NEB ONE (19:27)
[2024-07-23] MEDS ORDERED: MORPHINE SULFATE 2 MG/ML SYRINGE ONE (05:12)
[2024-07-23] MEDS: MORPHINE SULFATE 2 MG/ML SYRINGE IVPUSH PRN (05:20)
[2024-07-23] MEDS ORDERED: SUMAtriptan SUCCINATE 50 MG TABLET PO PRN (07:09)
[2024-07-23] MEDS ORDERED: PATIENT'S OWN MEDICATION (NON-FORMULARY) (Linaclotide 145 MCG Capsule) PO PRN (07:09)
[2024-07-23] MEDS: INSULIN ASPART SLIDING SCALE (NOVOLOG) 1 VIAL SQ SCH (07:47)
[2024-07-23 10:00] LABS: HEMATOCRIT 35.2 % (32.4-45.2); HEMOGLOBIN 11.6 GM/dL (10.7-15.3); MCH 27.6 pg (25.7-33.7); MCHC 32.9 g/dl (32.0-36.0); MEAN PLT VOLUME 9.4 fl (7.5-11.1); PLATELET COUNT 160 10^3/uL (134-434); RBC 4.19 M/mm3 (3.60-5.2); RDW 14.7 % (11.6-15.6); WHITE BLOOD COUNT 6.2 K/mm3 (4.0-10.0)
[2024-07-23 10:38] LABS: POTASSIUM 3.6 mmol/L (3.5-5.1)
[2024-07-23] MEDS ORDERED: PANTOPRAZOLE 40 MG TABLET PO ONE ×2 (10:44→23:10)
[2024-07-23] MEDS ORDERED: APIXABAN 5 MG TABLET ONE ×2 (10:44→23:10)
[2024-07-23] MEDS ORDERED: FOLIC ACID 1 MG TABLET (FP) ONE (10:45)
[2024-07-23] MEDS ORDERED: ISOSORBIDE MONONITRATE 30 MG TAB.SR.24H (FP) PO ONE (10:45)
[2024-07-23] MEDS ORDERED: LOSARTAN POTASSIUM 50 MG TABLET ONE (10:45)
[2024-07-23 10:50] LABS: ALBUMIN 3.6 g/dl (3.4-5.0); BLOOD UREA NITROGEN 11.7 mg/dL (7-18)
[2024-07-23 10:51] LABS: MAGNESIUM 2.1 mg/dL (1.8-2.4)
[2024-07-23 10:53] LABS: CREATININE 0.7 mg/dL (0.55-1.3); PHOSPHOROUS 3.6 mg/dL (2.5-4.9)
[2024-07-23 10:54] LABS: BILIRUBIN,TOTAL 0.9 mg/dL (0.2-1); TOT PROT 6.9 g/dl (6.4-8.2)
[2024-07-23] MEDS: hydrALAZINE HCL 50 MG TABLET (FP) PO SCH ×3 (10:58→19:19)
[2024-07-23] MEDS: ISOSORBIDE MONONITRATE 30 MG TAB.SR.24H (FP) PO SCH (10:59)
[2024-07-23] MEDS: LOSARTAN POTASSIUM 50 MG TABLET PO SCH (10:59)
[2024-07-23] MEDS: APIXABAN 5 MG TABLET PO SCH (10:59)
[2024-07-23] MEDS: FOLIC ACID 1 MG TABLET (FP) PO SCH (10:59)
[2024-07-23] MEDS: PANTOPRAZOLE 40 MG TABLET PO SCH (11:00)
[2024-07-23] MEDS: NYSTATIN POWDER 100,000 UNITS/GM - 30 GM TOPICAL POWDER TP SCH (11:56)
[2024-07-23] MEDS ORDERED: hydrALAZINE HCL 50 MG TABLET (FP) ONE ×2 (18:20→23:11)
[2024-07-23] MEDS ORDERED: GABAPENTIN 300 MG CAPSULE ONE (18:25)
[2024-07-23] MEDS: GABAPENTIN 300 MG CAPSULE PO PRN (18:30)
[2024-07-23] MEDS ORDERED: hydrALAZINE HCL 50 MG TABLET (FP) PO SCH (22:00)
[2024-07-23] MEDS ORDERED: PATIENT'S OWN MEDICATION (NON-FORMULARY) (Mirabegron [Myrbetriq] 50 MG Tab.Er.24h) PO SCH (22:00)
[2024-07-23] MEDS ORDERED: ROSUVASTATIN CA 20 MG TABLET ONE (23:11)
[2024-07-23] MEDS ORDERED: CITALOPRAM HYDROBROMIDE 10 MG TABLET ONE (23:11)
[2024-07-23] MEDS ORDERED: metoPROLOL SUCCINATE 25 MG TAB.SR.24H (FP) PO ONE (23:11)
[2024-07-23] MEDS ORDERED: MONTELUKAST NA 10 MG TABLET ONE (23:11)
[2024-07-23] MEDS ORDERED: GABAPENTIN 400 MG CAPSULE ONE (23:12)
[2024-07-23] MEDS: metoPROLOL SUCCINATE 25 MG TAB.SR.24H (FP) PO SCH (23:23)
[2024-07-23] MEDS: CITALOPRAM HYDROBROMIDE 20 MG TABLET PO SCH (23:23)
[2024-07-23] MEDS: MONTELUKAST NA 10 MG TABLET PO SCH (23:23)
[2024-07-23] MEDS ORDERED: ALBUTEROL SO4 HFA INHALER IH ONE (23:23)
[2024-07-23] MEDS: GABAPENTIN 400 MG CAPSULE PO SCH (23:23)
[2024-07-23] MEDS: ROSUVASTATIN CA 20 MG TABLET PO SCH (23:23)
[2024-07-23] MEDS: EZETIMIBE 10 MG TABLET (FP) PO SCH (23:24)
[2024-07-23] MEDS: ALBUTEROL SO4 HFA INHALER IH PRN (23:27)
[2024-07-24 00:40] LABS: EPI CELLS 22 /uL (0-25.1); HYALINE CASTS 1 /uL (0-3.1); PH,URINE 5.5 (5.0-8.0); URINE APPEARANCE CLEAR; URINE BACTERIA 90 /uL (0-1359); URINE BILIRUBIN 1+ (NEGATIVE); URINE COLOR DK YELLOW; URINE GLUCOSE (UA) NEGATIVE (NEGATIVE); URINE KETONE TRACE (NEGATIVE); URINE LEUK ESTERASE 1+ (NEGATIVE); URINE NITRITE NEGATIVE (NEGATIVE); URINE PROTEIN NEGATIVE (NEGATIVE); URINE RBC 15 /uL (0-23.9); URINE WBC 23 /uL (0-25.8)
[2024-07-24] MEDS ORDERED: hydrALAZINE HCL 25 MG TABLET (FP) ONE (00:42)
[2024-07-24] MEDS: hydrALAZINE HCL 25 MG TABLET (FP) PO SCH (00:57)
[2024-07-24] MEDS ORDERED: guaiFENesin 600 MG TABLET.ER (FP) PO SCH ×3 (03:25→10:00)
[2024-07-24] MEDS ORDERED: MORPHINE SULFATE 2 MG/ML SYRINGE ONE (09:28)
[2024-07-24] MEDS ORDERED: ISOSORBIDE MONONITRATE 30 MG TAB.SR.24H (FP) PO ONE (09:49)
[2024-07-24] MEDS: FLUTICASONE/UMECLIDIN/VILANTER(200-62.5-25 TRELEGY ELLIPTA) INAHLER IH SCH (10:33)
[2024-07-24] MEDS ORDERED: GABAPENTIN 300 MG CAPSULE ONE (17:47)
[2024-07-24] MEDS ORDERED: APIXABAN 5 MG TABLET ONE (22:18)
[2024-07-24] MEDS ORDERED: PANTOPRAZOLE 40 MG TABLET PO ONE (22:18)
[2024-07-24] MEDS ORDERED: GABAPENTIN 400 MG CAPSULE ONE (22:19)
[2024-07-24] MEDS ORDERED: MONTELUKAST NA 10 MG TABLET ONE (22:19)
[2024-07-24] MEDS ORDERED: ROSUVASTATIN CA 20 MG TABLET ONE (22:19)
[2024-07-25 06:31] LABS: HEMATOCRIT 34.1 % (32.4-45.2); HEMOGLOBIN 11.2 GM/dL (10.7-15.3); MCH 27.4 pg (25.7-33.7); MCHC 32.8 g/dl (32.0-36.0); MEAN CELL VOLUME 83.6 fl (80-96); MEAN PLT VOLUME 9.8 fl (7.5-11.1); PLATELET COUNT 158 10^3/uL (134-434); RBC 4.08 M/mm3 (3.60-5.2); RDW 14.7 % (11.6-15.6); WHITE BLOOD COUNT 6.9 K/mm3 (4.0-10.0)
[2024-07-25 06:35] LABS: POTASSIUM 3.7 mmol/L (3.5-5.1)
[2024-07-25 06:36] LABS: BLOOD UREA NITROGEN 20.6 mg/dL (7-18); CALCIUM 8.9 mg/dL (8.5-10.1); MAGNESIUM 2.1 mg/dL (1.8-2.4)
[2024-07-25 06:40] LABS: CREATININE 0.9 mg/dL (0.55-1.3); PHOSPHOROUS 4.1 mg/dL (2.5-4.9)
[2024-07-25] MEDS ORDERED: MORPHINE SULFATE 2 MG/ML SYRINGE ONE ×2 (06:40→21:18)
[2024-07-25] MEDS ORDERED: GABAPENTIN 300 MG CAPSULE ONE ×2 (10:10→18:07)
[2024-07-25] MEDS ORDERED: CEFUROXIME AXETIL 500 MG TABLET PO SCH (10:15)
[2024-07-25] MEDS: CEFUROXIME AXETIL 500 MG TABLET PO SCH (10:57)
[2024-07-25] MEDS ORDERED: INSULIN ASPART SLIDING SCALE (NOVOLOG) 1 VIAL SQ ONE (12:04)
[2024-07-25] MEDS ORDERED: CITALOPRAM HYDROBROMIDE 10 MG TABLET ONE (21:40)
[2024-07-25] MEDS ORDERED: MONTELUKAST NA 10 MG TABLET ONE (21:40)
[2024-07-25] MEDS ORDERED: metoPROLOL SUCCINATE 25 MG TAB.SR.24H (FP) PO ONE (21:40)
[2024-07-25] MEDS ORDERED: ROSUVASTATIN CA 20 MG TABLET ONE (21:40)
[2024-07-25] MEDS ORDERED: GABAPENTIN 400 MG CAPSULE ONE (21:41)
[2024-07-26] MEDS ORDERED: hydrALAZINE HCL 25 MG TABLET (FP) ONE (04:51)
[2024-07-26] MEDS ORDERED: GABAPENTIN 300 MG CAPSULE ONE (08:54)
[2024-07-26 09:00] VITALS: BP 130/63; PULSE 55; RESP 20; TEMP 98
== END 2024-07-26 09:11 | disposition home health service (06) ==
LOC: JER 14:43 → INTOOBSV 22:30 → JERBED 22:30 → UNDOADMOB 22:30 → JERBED 07-23 09:00
PROVIDERS: ADMIT Internal Medicine
PROC: 3E033NZ Introduction of Analgesics, Hypnotics, Sedatives into Peripheral Vein, Percutaneous Approach (ICD-10-PCS; principal; 2024-07-23)
PROC: 3E0F7GC Introduction of Other Therapeutic Substance into Respiratory Tract, Via Natural or Artificial Opening (ICD-10-PCS; 2024-07-23)
PROC: 2W3RX1Z Immobilization of Left Lower Leg using Splint (ICD-10-PCS; 2024-07-23)
DX: S42.435A Nondisplaced fracture (avulsion) of lateral epicondyle of left humerus, initial encounter for closed fracture (principal); W01.0XXA Fall on same level from slipping, tripping and stumbling without subsequent striking against object, initial encounter; Y93.89 Activity, other specified; Y92.008 Other place in unspecified non-institutional (private) residence as the place of occurrence of the external cause; Z99.89 Dependence on other enabling machines and devices; I10 Essential (primary) hypertension; E78.5 Hyperlipidemia, unspecified; K21.9 Gastro-esophageal reflux disease without esophagitis; R60.0 Localized edema; K44.9 Diaphragmatic hernia without obstruction or gangrene; J45.909 Unspecified asthma, uncomplicated; R01.1 Cardiac murmur, unspecified; R56.9 Unspecified convulsions; D68.51 Activated protein C resistance; I45.10 Unspecified right bundle-branch block; Z86.718 Personal history of other venous thrombosis and embolism; Z79.01 Long term (current) use of anticoagulants; F41.8 Other specified anxiety disorders; Z88.0 Allergy status to penicillin; Z88.8 Allergy status to other drugs, medicaments and biological substances; Z91.018 Allergy to other foods
CPT/HCPCS: 0241U-QW; 29515; 36415; 70450-TC; 71045-TC-FY; 72125-TC; 73030-TC-LT-FY; 73060-TC-LT-FY; 73070-TC-LT-FY; 73090-TC-LT-FY; 73110-TC-LT-FY; 73130-TC-LT-FY; 73562-TC-LT-FY; 80048; 80053; 81003; 82803; 82962; 83735; 84100; 84484; 85025; 85027; 93005; 93010; 94640; 96374; 97116-GP; 97161-GP; 99285-25; G0378; J0131